=== PATIENT | male | born 1930 | race Caucasian/White ===

== ENCOUNTER → 2017-02-27 | Outpatient (CLI) | payer MEDICARE, BC ==
[2017-02-27 13:38] LABS: Uric Acid 5.6 mg/dL (3.5-8.5)
== END | disposition home or self-care (01) ==
LOC: LABWHC1 12:32
PROVIDERS: ATTEND Internal Medicine Rheumatology
DX: M10.00 Idiopathic gout, unspecified site (principal)
CPT/HCPCS: 36415; 82565; 84450; 84460; 84520; 84550

== ENCOUNTER → 2017-03-30 | Outpatient (CLI) | payer MEDICARE, BC ==
[2017-03-30 17:41] LABS: Basophils # (A) 0.1 k/uL (0-0.2); Basophils % (A) 1 %; CH 27.9; CHCM 31.2; Eosinophils # (A) 0.4 k/uL (0-0.7); Eosinophils % (A) 4 %; HCT 39.5 % (39.0-53.0); HDW 2.53; HGB 11.9 gm/dL (13.0-17.5); Hypochromasia Slight; Luc # (Auto) 0.21; Luc % (Auto) 2; Lymphocytes # (A) 1.5 k/uL (1.0-4.8); Lymphocytes % (A) 16 %; MCH 27.2 pg (25.0-35.0); MCHC 30.2 g/dL (31.0-37.0); MCV 90.1 fL (80.0-100.0); Mean Platelet Volume 6.7; Monocytes # (A) 0.4 k/uL (0-1.0); Monocytes % (A) 5 %; Neutrophils # (A) 6.9 k/uL (1.3-7.7); Neutrophils % (A) 73 %; RBC 4.39 m/uL (4.30-5.90); RDW 15.3 % (11.5-15.5); WBC 9.5 k/uL (3.8-10.6); WBC (Perox) 9.31
[2017-03-30 20:44] LABS: Erythrocyte Sedimentation Rate 40 mm/hr (0-15)
== END ==
LOC: LABWHC1 16:50
PROVIDERS: ATTEND Internal Medicine Rheumatology
DX: M06.4 Inflammatory polyarthropathy (principal)
CPT/HCPCS: 36415; 82565; 84450; 84460; 84520; 85025; 85652

== ENCOUNTER 2018-02-20 22:30 | Inpatient (IN) | payer MEDICARE, BC ==
--- NOTE | 2018-02-20 22:40 | ED ---
General Adult HPI - General Stated complaint: Chest Pain Time Seen by Provider: 02/20/18 22:33 Source: RN notes reviewed, old records reviewed - History of Present Illness Initial comments: This is an 87-year-old male to the ER for evaluation. Positive chest pain. History of high blood pressure. Nonsmoker. No significant medical history. No recent travel history no sick contacts. Patient denies any specific injuries. Patient has anterior chest pain really feels like tightness started about an hour prior to arrival. No prior history of similar complaint. No bowel pain no nausea vomiting. No diaphoresis. No significant shortness of breath currently. Patient states pain is mildly improved when it started was worse an hour ago much improved now - Related Data Allergies Allergy/AdvReac Type Severity Reaction Status Date / Time No Known Allergies Allergy Verified 02/20/18 22:33 Review of Systems ROS Statement: Those systems with pertinent positive or pertinent negative responses have been documented in the HPI. ROS Other: All systems not noted in ROS Statement are negative. General Exam General appearance: alert, in no apparent distress Head exam: Present: atraumatic, normocephalic, normal inspection Eye exam: Present: normal appearance, PERRL, EOMI. Absent: scleral icterus, conjunctival injection, periorbital swelling ENT exam: Present: normal exam, mucous membranes moist Neck exam: Present: normal inspection. Absent: tenderness, meningismus, lymphadenopathy Respiratory exam: Present: normal lung sounds bilaterally. Absent: respiratory distress, wheezes, rales, rhonchi, stridor Cardiovascular Exam: Present: regular rate, normal rhythm, normal heart sounds. Absent: systolic murmur, diastolic murmur, rubs, gallop, clicks GI/Abdominal exam: Present: soft, normal bowel sounds. Absent: distended, tenderness, guarding, rebound, rigid Extremities exam: Present: normal inspection, full ROM, normal capillary refill. Absent: tenderness, pedal edema, joint swelling, calf tenderness Back exam: Present: normal inspection Neurological exam: Present: alert, oriented X3, CN II-XII intact Psychiatric exam: Present: normal affect, normal mood Skin exam: Present: warm, dry, intact, normal color. Absent: rash Course Vital Signs 02/20/18 02/20/18 02/20/18 22:33 22:46 23:01 Temperature 98.5 F Pulse Rate 87 79 Pulse Rate [ 78 [employer] ] Respiratory 18 18 Rate Blood Pressure 175/99 142/82 O2 Sat by Pulse 96 98 Oximetry 02/21/18 00:08 Temperature 97.0 F L Pulse Rate 80 Pulse Rate [ [employer] ] Respiratory 18 Rate Blood Pressure 151/84 O2 Sat by Pulse 98 Oximetry EKG Findings - EKG Comments: EKG Findings:: EKG shows sinus rhythm rate of 84, MI 1:30, QRS 88, QTC 404 Medical Decision Making - Medical Decision Making 87 male the ER for evaluation positive chest pain. Patient does have positive troponin 0.2 with positive chest pain. Patient be taken to [facility], given aspirin and heparin - Lab Data Result diagrams: 02/20/18 22:36 02/20/18 22:36 Lab Results 02/20/18 02/20/18 02/20/18 Range/Units 22:35 22:36 22:36 WBC 10.1 (3.8-10.6) k/uL RBC 4.54 (4.30-5.90) m/uL Hgb 12.5 L (13.0-17.5) gm/dL Hct 39.2 (39.0-53.0) % MCV 86.3 (80.0-100.0) fL MCH 27.5 (25.0-35.0) pg MCHC 31.8 (31.0-37.0) g/dL RDW 14.4 (11.5-15.5) % Plt Count 255 (150-450) k/uL Neutrophils % 74 % Lymphocytes % 15 % Monocytes % 6 % Eosinophils % 3 % Basophils % 1 % Neutrophils # 7.5 (1.3-7.7) k/uL Lymphocytes # 1.5 (1.0-4.8) k/uL Monocytes # 0.6 (0-1.0) k/uL Eosinophils # 0.3 (0-0.7) k/uL Basophils # 0.1 (0-0.2) k/uL PT (9.0-12.0) sec INR (<1.2) APTT (22.0-30.0) sec D-Dimer (<0.60) mg/L FEU Sodium (137-145) mmol/L Potassium (3.5-5.1) mmol/L Chloride (98-107) mmol/L Carbon Dioxide (22-30) mmol/L Anion Gap mmol/L BUN (9-20) mg/dL Creatinine (0.66-1.25) mg/dL Est GFR (CKD-EPI)AfAm (>60 ml/min/1.73 sqM) Est GFR (CKD-EPI)NonAf (>60 ml/min/1.73 sqM) Glucose (74-99) mg/dL POC Glucose (mg/dL) 124 H (75-99) mg/dL POC Glu Continuing Education Director ID Rebekah Brar Calcium (8.4-10.2) mg/dL Magnesium (1.6-2.3) mg/dL Total Bilirubin (0.2-1.3) mg/dL AST (17-59) U/L ALT (21-72) U/L Alkaline Phosphatase (38-126) U/L Total Creatine Kinase 142 (55-170) U/L CK-MB (CK-2) 4.0 H* (0.0-2.4) ng/mL CK-MB (CK-2) Rel Index 2.8 Troponin I 0.222 H* (0.000-0.034) ng/mL Total Protein (6.3-8.2) g/dL Albumin (3.5-5.0) g/dL Lipase (23-300) U/L 02/20/18 02/20/18 Range/Units 22:36 22:36 WBC (3.8-10.6) k/uL RBC (4.30-5.90) m/uL Hgb (13.0-17.5) gm/dL Hct (39.0-53.0) % MCV (80.0-100.0) fL MCH (25.0-35.0) pg MCHC (31.0-37.0) g/dL RDW (11.5-15.5) % Plt Count (150-450) k/uL Neutrophils % % Lymphocytes % % Monocytes % % Eosinophils % % Basophils % % Neutrophils # (1.3-7.7) k/uL Lymphocytes # (1.0-4.8) k/uL Monocytes # (0-1.0) k/uL Eosinophils # (0-0.7) k/uL Basophils # (0-0.2) k/uL PT 9.9 (9.0-12.0) sec INR 1.0 (<1.2) APTT 21.8 L (22.0-30.0) sec D-Dimer 2.30 H (<0.60) mg/L FEU Sodium 143 (137-145) mmol/L Potassium 4.5 (3.5-5.1) mmol/L Chloride 106 (98-107) mmol/L Carbon Dioxide 24 (22-30) mmol/L Anion Gap 13 mmol/L BUN 31 H (9-20) mg/dL Creatinine 1.80 H (0.66-1.25) mg/dL Est GFR (CKD-EPI)AfAm 39 (>60 ml/min/1.73 sqM) Est GFR (CKD-EPI)NonAf 34 (>60 ml/min/1.73 sqM) Glucose 134 H (74-99) mg/dL POC Glucose (mg/dL) (75-99) mg/dL POC Glu Continuing Education Director ID Calcium 9.4 (8.4-10.2) mg/dL Magnesium 1.6 (1.6-2.3) mg/dL Total Bilirubin 0.3 (0.2-1.3) mg/dL AST 19 (17-59) U/L ALT 27 (21-72) U/L Alkaline Phosphatase 71 (38-126) U/L Total Creatine Kinase (55-170) U/L CK-MB (CK-2) (0.0-2.4) ng/mL CK-MB (CK-2) Rel Index Troponin I (0.000-0.034) ng/mL Total Protein 6.9 (6.3-8.2) g/dL Albumin 4.1 (3.5-5.0) g/dL Lipase 243 (23-300) U/L - Radiology Data Radiology results: report reviewed (Chest x-rays negative for acute disease), image reviewed Critical Care Time Critical Care Time: Yes Total Critical Care Time: 31 Disposition Clinical Impression: Chest pain, Atypical chest pain, Unstable angina pectoris Disposition: ADMITTED IP TO THIS [facility] Referrals: Alok Ospina MD [Primary Care Provider] - 1-2 days
[2018-02-20 22:48] LABS: Glucose,Whole Blood 124 mg/dL (75-99)
[2018-02-20] MEDS ORDERED: SODIUM CHLORIDE 0.9% 1,000 ML IV STA (22:50)
[2018-02-20] MEDS ORDERED: SODIUM CHLORIDE 0.9% 500 ML IV STA (22:50)
[2018-02-20 23:00] LABS: Basophils # (A) 0.1 k/uL (0-0.2); Basophils % (A) 1 %; Eosinophils # (A) 0.3 k/uL (0-0.7); Eosinophils % (A) 3 %; HCT 39.2 % (39.0-53.0); HGB 12.5 gm/dL (13.0-17.5); Lymphocytes # (A) 1.5 k/uL (1.0-4.8); Lymphocytes % (A) 15 %; MCH 27.5 pg (25.0-35.0); MCHC 31.8 g/dL (31.0-37.0); MCV 86.3 fL (80.0-100.0); Mean Platelet Volume 6.5; Monocytes # (A) 0.6 k/uL (0-1.0); Monocytes % (A) 6 %; Neutrophils # (A) 7.5 k/uL (1.3-7.7); Neutrophils % (A) 74 %; Platelet Count 255 k/uL (150-450); RBC 4.54 m/uL (4.30-5.90); RDW 14.4 % (11.5-15.5); WBC 10.1 k/uL (3.8-10.6)
[2018-02-20 23:11] LABS: Albumin 4.1 g/dL (3.5-5.0); Calcium 9.4 mg/dL (8.4-10.2); Magnesium 1.6 mg/dL (1.6-2.3); Potassium 4.5 mmol/L (3.5-5.1); Total Bilirubin 0.3 mg/dL (0.2-1.3); Total Protein 6.9 g/dL (6.3-8.2)
[2018-02-20 23:20] LABS: Partial Thromboplastin Time 21.8 sec (22.0-30.0); Prothrombin Time 9.9 sec (9.0-12.0)
[2018-02-20 23:23] LABS: D-Dimer 2.3 mg/L FEU (<0.60)
--- NOTE | 2018-02-20 23:28 | XR ---
EXAMINATION TYPE: XR chest 2V DATE OF EXAM: 02/20/2018 COMPARISON: 01/07/2018 HISTORY: Chest pain TECHNIQUE: Frontal and lateral views of the chest are obtained. FINDINGS: There is no heart failure nor confluent pneumonic infiltrate. There is minimal blunting of left costophrenic angle.. Thoracic aorta is atheromatous. There are chest leads. IMPRESSION: Minimal pleural reaction at the left lung base. Otherwise negative exam. There is probab ly no change compared to old exam.
[2018-02-20 23:44] LABS: Troponin I 0.222 ng/mL (0.000-0.034)
[2018-02-20] MEDS ORDERED: HEPARIN SODIUM,PORCINE 5,000 UNIT/ML 1 ML VIAL IV PRN (23:45)
[2018-02-20] MEDS ORDERED: HEPARIN SODIUM,PORCINE 5,000 UNIT/ML 1 ML VIAL IV ONE (23:45)
[2018-02-21] MEDS: HEPARIN SOD,PORK IN 0.45% NACL 25,000 UNIT in 0.45% NACL 1 500ML.BAG IV SCH (00:02)
[2018-02-21] MEDS ORDERED: ASPIRIN 81 MG PO STA (00:14)
[2018-02-21] MEDS ORDERED: NITROGLYCERIN SL TABS 0.4 MG TAB SUBLINGUAL PRN ×2 (00:14→01:59)
[2018-02-21] MEDS ORDERED: SODIUM CHLORIDE 0.9% 1,000 ML IV ONE (00:44)
[2018-02-21] MEDS ORDERED: MIDAZOLAM 2 MG/2 ML VIAL ONE (00:45)
[2018-02-21] MEDS ORDERED: MIDAZOLAM 2 MG/2 ML VIAL IVP ONE (01:03)
[2018-02-21] MEDS ORDERED: LIDOCAINE 2% SYG (PF) 100 MG/5 ML MISCELLANE ONE (01:07)
[2018-02-21] MEDS ORDERED: BIVALIRUDIN BOLUS 250 MG/50 ML IV ONE (01:26)
[2018-02-21] MEDS ORDERED: IOPAMIDOL-370 125ML BTL INJ ONE (01:26)
[2018-02-21] MEDS ORDERED: BIVALIRUDIN 250 MG in SODIUM CHLORIDE 0.9% 50 ML IV ONE (01:27)
[2018-02-21] MEDS: NITROGLYCERIN 1000MCG/10ML SYRINGE INTRACORON ONE ×2 (01:37→01:46)
[2018-02-21] MEDS ORDERED: CLOPIDOGREL 75 MG TAB ONE (01:49)
[2018-02-21] MEDS ORDERED: CLOPIDOGREL 75 MG TAB PO ONE (01:50)
[2018-02-21] MEDS ORDERED: RX INFO: IV CONTRAST WAS GIVEN 1 EACH MISC MISCELLANE PRN (01:59)
[2018-02-21] MEDS ORDERED: ATROPINE SULFATE 0.1 MG/ML 10ML SYRINGE IV PRN (01:59)
[2018-02-21] MEDS ORDERED: MAG HYDROX/AL HYDROX/SIMETH 30 ML CUP PO PRN (01:59)
[2018-02-21] MEDS ORDERED: ZOLPIDEM 5 MG TAB PO PRN (01:59)
[2018-02-21] MEDS ORDERED: SODIUM CHLORIDE 0.9% 1,000 ML IV SCH (02:00)
[2018-02-21] MEDS ORDERED: IOPAMIDOL-370 100ML BTL INJ ONE (02:03)
--- NOTE | 2018-02-21 02:05 | P.CRDCN ---
History of Present Illness Consult date: 02/21/18 Chief complaint: chest discomfort History of present illness: This is a pleasant 87-year-old gentleman with no significant past medical history presented to the emergency room complaining of chest discomfort. The patient described the discomfort as a dull kind of discomfort in the mid of the chest without any radiation and without any associated symptoms. The first set of troponin came in to be slightly abnormal as well as the CK-MB. The EKG showed sinus rhythm with ischemic ST and T wave abnormalities in the inferolateral leads. The patient continues to have chest discomfort throughout the ER stay. Because of that a heart catheterization was recommended. The patient underwent a heart catheterization and that revealed calcified right and left coronary systems with intermediate disease involving the mid RCA, critical disease involving the proximal first obtuse marginal branch of the left circumflex, and severe disease involving the mid LAD. The patient did undergo successful stenting of the left circumflex with a good angiographic results and without any complication with reduction of stenosis from 90% to 0%. I did deploy drug-eluting stent which was 2.5 x 23 mm Xience. The procedure was completed without any complication. By the end of the procedure the patient was pain-free. The patient does not have any documented historyOf diabetes or hypertension or dyslipidemia. The patient is going to be admitted to the selective units. He will be on dual antiplatelet therapy along with high intensity statin as well as beta luigi. An echocardiogram would be performed as well to evaluate the left ventricular systolic function and for any wall motion abnormalities. Past Medical History Past Medical History: Cancer, COPD, Hypertension Additional Past Medical History / Comment(s): Bladder cancer History of Any Multi-Drug Resistant Organisms: None Reported Past Surgical History: Hernia Repair Additional Past Surgical History / Comment(s): bladder removal, urostomy Past Psychological History: No Psychological Hx Reported Smoking Status: Never smoker Past Alcohol Use History: None Reported Past Drug Use History: None Reported Medications and Allergies Allergies Allergy/AdvReac Type Severity Reaction Status Date / Time No Known Allergies Allergy Verified 02/20/18 22:33 Physical Exam Vitals: Vital Signs Temp Pulse Pulse Resp BP Pulse Ox 02/21/18 00:08 97.0 F L 80 18 151/84 98 02/20/18 23:01 79 18 142/82 98 02/20/18 22:46 78 02/20/18 22:33 98.5 F 87 18 175/99 96 Intake and Output 02/20/18 02/20/18 02/21/18 14:59 22:59 06:59 Output Total 350 Balance -350 Output: Urine 350 Other: Weight 77.111 kg - Constitutional General appearance: no acute distress - Respiratory Respiratory: bilateral: CTA - Cardiovascular Rhythm: regular Heart sounds: normal: S1, S2 Results 02/20/18 22:36 02/20/18 22:36 Cardiac Enzymes 02/20/18 02/20/18 Range/Units 22:36 22:36 AST 19 (17-59) U/L CK-MB (CK-2) 4.0 H* (0.0-2.4) ng/mL Troponin I 0.222 H* (0.000-0.034) ng/mL Coagulation 02/20/18 Range/Units 22:36 PT 9.9 (9.0-12.0) sec APTT 21.8 L (22.0-30.0) sec CBC 02/20/18 Range/Units 22:36 WBC 10.1 (3.8-10.6) k/uL RBC 4.54 (4.30-5.90) m/uL Hgb 12.5 L (13.0-17.5) gm/dL Hct 39.2 (39.0-53.0) % Plt Count 255 (150-450) k/uL Comprehensive Metabolic Panel 02/20/18 Range/Units 22:36 Sodium 143 (137-145) mmol/L Potassium 4.5 (3.5-5.1) mmol/L Chloride 106 (98-107) mmol/L Carbon Dioxide 24 (22-30) mmol/L BUN 31 H (9-20) mg/dL Creatinine 1.80 H (0.66-1.25) mg/dL Glucose 134 H (74-99) mg/dL Calcium 9.4 (8.4-10.2) mg/dL AST 19 (17-59) U/L ALT 27 (21-72) U/L Alkaline Phosphatase 71 (38-126) U/L Total Protein 6.9 (6.3-8.2) g/dL Albumin 4.1 (3.5-5.0) g/dL Current Medications Generic Name Dose Route Start Last Admin Trade Name Freq PRN Reason Stop Dose Admin Al Hydroxide/Mg Hydroxide 30 ml 02/21/18 01:59 Maalox PO Q4HR PRN Heartburn Aspirin 325 mg 02/22/18 09:00 Aspirin PO DAILY [facility] Atorvastatin Calcium 80 mg 02/21/18 09:00 Lipitor PO DAILY [facility] Atropine Sulfate 0.5 mg 02/21/18 01:59 Atropine IV ONCE PRN Symptomatic Bradycardia Clopidogrel Bisulfate 75 mg 02/22/18 02:00 Plavix PO DAILY [facility] Heparin Sodium (Porcine) 0 unit 02/20/18 23:45 Heparin IV PER PROTOCOL PRN Low PTT Protocol Sodium Chloride 1,000 mls @ 100 mls/hr 02/20/18 22:50 02/20/18 22:59 Saline 0.9% IV 02/21/18 08:49 100 mls/hr .Q10H STA Administration Heparin Sodium/Sodium Chloride 500 mls @ 18.5 mls/hr 02/20/18 23:45 02/21/18 00:02 25,000 unit/ Sodium Chloride IV 12 units/kg/hr .Q24H JULIETH 18.5 mls/hr Administration Protocol 12 UNITS/KG/HR Metoprolol Tartrate 25 mg 02/21/18 09:00 Lopressor PO BID [facility] Nitroglycerin 0.4 mg 02/21/18 00:14 Nitrostat SUBLINGUAL Q5M PRN Chest Pain Nitroglycerin 0.4 mg 02/21/18 01:59 Nitrostat SUBLINGUAL Q5M PRN Chest Pain Intake and Output 02/20/18 02/20/18 02/21/18 14:59 22:59 06:59 Output Total 350 Balance -350 Output: Urine 350 Other: Weight 77.111 kg Patient Weight 02/21/18 06:59 Weight 77.111 kg 02/20/18 22:36 02/20/18 22:36 Assessment and Plan Assessment: assessment #1 acute non-ST patient myocardial infarction Plan #1 the patient underwent successful stenting of the left circumflex #2 he needs to have a PCI of the LAD #3 dual antiplatelet therapy along with high intensity statin #4 an echocardiogram was Doppler #5 follow-up with the patient.
[2018-02-21] MEDS: MORPHINE SULFATE 2 MG/ML SYRINGE IVP PRN ×2 (04:23→08:49)
--- NOTE | 2018-02-21 05:07 | CC ---
CARDIAC CATHETERIZATION REPORT DATE OF SERVICE: February 21, 2018 PERFORMING PHYSICIAN: Charly Riley MD, log handling equipment operator. PROCEDURE PERFORMED: 1. Selective right and left coronary angiogram. 2. Successful stenting of the proximal 1st obtuse marginal branch of the left circumflex using 2.5 x 23 mm Xience VERONICA with good angiographic results. INDICATION: This is a pleasant 87-year-old gentleman who presented to the hospital with chest discomfort and EKG changes concerning for ischemia as well as abnormal cardiac enzymes consistent with acute myocardial infarction. Because of the continuous chest discomfort throughout the ER visit, we decided to pursue with a heart catheterization. APPROACH: Right common femoral artery. COMPLICATION: None. LEVEL OF SEDATION: Moderate with sedation length of 53 minutes. PROCEDURE DESCRIPTION: After obtaining an informed consent, the patient was brought to cardiac laboratory worker. The right common femoral artery was cannulated using micropuncture technique and a micropuncture wire passed easily. Then I placed a 6-Tanzanian sheath in the right common femoral artery. I did after that selective right and left coronary angiogram using JR4 and JL4.5 catheters. After that, I did intervene on the left circumflex. Please see a separate paragraph for that. SELECTIVE CORONARY ANGIOGRAM: 1. The RCA is a large caliber vessel and it is a dominant vessel. It does have the posterior takeoff. The proximal RCA appeared to be appeared to have mild disease only. The mid RCA has a lesion seems to be in the range of 30% to 40%. The RCA distally is normal and bifurcates into PDA and PLV branches both are angiographically normal. 2. The left main: Calcified and seems to have mild disease only. It bifurcates into left circumflex, ramus intermedius, and left anterior descending artery. 3. The left circumflex is a large caliber vessel. It is a nondominant vessel with proximal circ appeared to have a lesion in the range of 70%. It gives rise into the first obtuse marginal branch which worked as ramus intermedius and does have a lesion seems to be in the range of 80% to 90%. The mid and distal 1st OM branch appears to be angiographically normal and the circ continues as a medium caliber vessel in the AV groove. 4. The LAD: The proximal LAD appeared to have mild to moderate disease only. The mid LAD has a lesion appeared to be in the range of 70% to 80%. The LAD distally appeared to have mild disease only. The LAD overall is heavily calcified vessel. PCI OF THE LEFT CIRCUMFLEX: Anticoagulation was initiated using Angiomax. Subsequently I did take an XB4 guide and the left main was engaged. A whisper wire was used to wire the OM 1. I did after that balloon angioplasty using 2.5 x 15 mm balloon. I tried advancing 2.5 x 23 mm Xience VERONICA, but the stent will not make the turn from the left main to the circumflex. At that point, I did wire the OM 1 using a run-through wire. With the renato wire I was able to advance 2.5 x 23 mm Xience VERONICA to OM 1 in the proximal portion where the stent was positioned under fluoroscopy guidance and deployed under its nominal pressure. The following angiogram showed good angiographic results and the procedure was completed without any complication. CONCLUSION: 1. Calcified right and left coronary systems. 2. 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 3. Severe disease involving the mid LAD. 4. Successful stenting of the proximal OM 1 of the left circumflex using 2.5 x 23 mm Xience VERONICA with good angiographic results. POSTPROCEDURE MANAGEMENT: 1. Dual anti-platelet therapy. 2. Risk factor modifications. 3. Follow up with the patient. MMODL / IJN: [id number] /
[2018-02-21 05:56] LABS: Basophils % (A) 0 %; Eosinophils # (A) 0.1 k/uL (0-0.7); Eosinophils % (A) 2 %; HCT 35.6 % (39.0-53.0); HGB 11.2 gm/dL (13.0-17.5); Lymphocytes % (A) 14 %; MCHC 31.3 g/dL (31.0-37.0); MCV 86.2 fL (80.0-100.0); Mean Platelet Volume 6.5; Monocytes # (A) 0.5 k/uL (0-1.0); Monocytes % (A) 7 %; Neutrophils # (A) 5.5 k/uL (1.3-7.7); Neutrophils % (A) 76 %; Platelet Count 234 k/uL (150-450); RBC 4.14 m/uL (4.30-5.90); RDW 14.5 % (11.5-15.5); WBC 7.2 k/uL (3.8-10.6)
[2018-02-21 06:02] LABS: INR 1.2 (<1.2); Partial Thromboplastin Time 37.8 sec (22.0-30.0); Prothrombin Time 11.6 sec (9.0-12.0)
[2018-02-21 06:35] LABS: Creatine Kinase MB 16.1 ng/mL (0.0-2.4); Troponin I 4.94 ng/mL (0.000-0.034)
[2018-02-21] MEDS: METOPROLOL TARTRATE 25 MG TAB PO SCH ×2 (07:58→21:47)
[2018-02-21] MEDS ORDERED: ATORVASTATIN 80 MG TAB PO SCH (09:00)
--- NOTE | 2018-02-21 10:16 | P.PN ---
Subjective Progress Note Date: 02/21/18 Principal diagnosis: Acute coronary syndrome This is a pleasant 87-year-old gentleman with no significant past medical history who presented to the emergency room complaining of chest discomfort and EKG finding consistent with ischemic changes. In view of the persistent chest discomfort the patient did undergo a heart catheterization and was found to have critical disease involving the left circumflex which was a stented with a good angiographic results and also severe disease involving the mid LAD which is heavily calcified. On follow-up with the patient today, he denies having any chest pain or discomfort or shortness of breath. No dizziness or lightheadedness. The vital signs are within normal limits. He continues to be on dual antiplatelet therapy along with a statin. An echocardiogram was ordered and we will follow-up with that. Objective - Vital Signs Vital signs: Vital Signs Temp 97.0 F L 02/21/18 07:42 Pulse 64 02/21/18 08:42 Resp 20 02/21/18 08:42 BP 122/76 02/21/18 08:42 Pulse Ox 91 L 02/21/18 08:42 Intake & Output 02/20/18 02/21/18 02/21/18 18:59 06:59 18:59 Intake Total 111 20 Output Total 825 200 Balance -714 -180 Weight 82.5 kg Intake: IV 111 20 Invasive Line 2 20 Output: Urine 825 200 Other: Voiding Method Urinal - Constitutional General appearance: Present: no acute distress - Respiratory Respiratory: bilateral: CTA - Cardiovascular Rhythm: regular Heart sounds: normal: S1, S2 - Labs CBC & Chem 7: 02/21/18 05:19 02/20/18 22:36 Labs: Abnormal Lab Results - Last 24 Hours (Table) 02/20/18 02/20/18 02/20/18 Range/Units 22:35 22:36 22:36 RBC (4.30-5.90) m/uL Hgb 12.5 L (13.0-17.5) gm/dL Hct (39.0-53.0) % INR (<1.2) APTT (22.0-30.0) sec D-Dimer (<0.60) mg/L FEU BUN (9-20) mg/dL Creatinine (0.66-1.25) mg/dL Glucose (74-99) mg/dL POC Glucose (mg/dL) 124 H (75-99) mg/dL Total Creatine Kinase (55-170) U/L CK-MB (CK-2) 4.0 H* (0.0-2.4) ng/mL Troponin I 0.222 H* (0.000-0.034) ng/mL 02/20/18 02/20/18 02/21/18 Range/Units 22:36 22:36 05:19 RBC (4.30-5.90) m/uL Hgb (13.0-17.5) gm/dL Hct (39.0-53.0) % INR 1.2 H (<1.2) APTT 21.8 L 37.8 H (22.0-30.0) sec D-Dimer 2.30 H (<0.60) mg/L FEU BUN 31 H (9-20) mg/dL Creatinine 1.80 H (0.66-1.25) mg/dL Glucose 134 H (74-99) mg/dL POC Glucose (mg/dL) (75-99) mg/dL Total Creatine Kinase (55-170) U/L CK-MB (CK-2) (0.0-2.4) ng/mL Troponin I (0.000-0.034) ng/mL 02/21/18 02/21/18 Range/Units 05:19 05:19 RBC 4.14 L (4.30-5.90) m/uL Hgb 11.2 L (13.0-17.5) gm/dL Hct 35.6 L (39.0-53.0) % INR (<1.2) APTT (22.0-30.0) sec D-Dimer (<0.60) mg/L FEU BUN (9-20) mg/dL Creatinine (0.66-1.25) mg/dL Glucose (74-99) mg/dL POC Glucose (mg/dL) (75-99) mg/dL Total Creatine Kinase 249 H (55-170) U/L CK-MB (CK-2) 16.1 H* (0.0-2.4) ng/mL Troponin I 4.940 H* (0.000-0.034) ng/mL Assessment and Plan Assessment: assessment #1 acute non-ST patient myocardial infarction Plan #1 the patient underwent successful stenting of the left circumflex #2 he needs to have a PCI of the LAD #3 dual antiplatelet therapy along with high intensity statin #4 an echocardiogram was Doppler #5 follow-up with the patient.
[2018-02-21 11:32] LABS: Creatine Kinase MB 14.3 ng/mL (0.0-2.4); Troponin I 5.38 ng/mL (0.000-0.034)
[2018-02-21] MEDS ORDERED: IPRATROPIUM-ALBUTEROL 3 ML NEB INHALATION PRN (11:55)
[2018-02-21] MEDS: IPRATROPIUM-ALBUTEROL 3 ML NEB INHALATION SCH ×3 (12:15→20:11)
[2018-02-21] MEDS: HYDROCORTISONE 1% CREAM 30 GM TUBE TOPICAL SCH ×3 (12:48→21:47)
--- NOTE | 2018-02-21 15:20 | P.HPIM ---
History of Present Illness H&P Date: 02/21/18 Chief Complaint: Chest pain 87 years old gentleman with past medical history of bladder cancer status post urostomy, COPD, hypertension comes in yesterday with left-sided chest pain that started 9 PM at night radiating to the right upper arm associated with shortness of breath and nausea. Patient came to the ER with his son. Troponin on admission was 0.22EKG was obtained with ST or T wave changes in the inferior lateral leads. cardiology evaluated the patient and took the patient for heart cath early in the morning they're successful drug-eluting stent was placed in the proximal. To use marginal branch of left circumflex. Severe disease was also seen in the mid LAD and intermediate disease in the mid RCA. LAD will be stented LAD later. Patient was initiated on Plavix and aspirin along with Lipitor and beta luigi. Creatinine on admission 1.8 which is close to patient 's baseline. Repeat labs not available. Patient examined bedside post cardiac catheterization. He denies any chest pain or shortness of breath. He is currently asymptomatic. Denies any nausea or vomiting episode. Denies any constipation or diarrhea, bloody stools or hematemesis. Patient is admitted for further intervention by cardiology of the [facility] Review of Systems Constitutional: Denies chills, Denies fever, Denies lethargy, Denies malaise, Denies poor appetite, Denies weakness, Denies weight loss Eyes: denies decreased vision, denies diplopia, denies discharge, denies pain Ears: deny: decreased hearing Ears, nose, mouth and throat: Denies dental pain, Denies headache, Denies nasal discharge, Denies nose pain Cardiovascular: Denies chest pain, Denies decreased exercise tolerance, Denies edema, Denies high blood pressure, Denies irregular heart beat, Denies palpitations, Denies paroxysmal nocturnal dyspnea, Denies rapid heart beat, Denies shortness of breath Respiratory: Denies congestion, Denies cough, Denies cough with sputum, Denies dyspnea, Denies home oxygen, Denies wheezing Gastrointestinal: Denies abdominal pain, Denies change in bowel habits, Denies coffee ground emesis, Denies early satiety, Denies excessive gas, Denies heartburn, Denies hematemesis, Denies hematochezia, Denies loss of appetite, Denies nausea, Denies vomiting Genitourinary: Denies dysuria, Denies flank pain, Denies kidney stones, Denies menorrhagia, Denies urgency, Denies urinary frequency Musculoskeletal: Denies gait dysfunction, Denies limitation of motion, Denies morning stiffness, Denies muscle cramps Integumentary: Denies rash, Denies wounds, Denies brittle nails, Denies change in hair/nails, Denies darkening of skin Neurological: Denies balance difficulties, Denies change in speech, Denies double vision, Denies gait dysfunction, Denies loss of vision, Denies motor disturbance, Denies numbness, Denies paralysis, Denies paresthesias, Denies seizures Psychiatric: Denies anxiety, Denies depression Endocrine: Denies excessive sweating, Denies excessive thirst, Denies high blood sugars, Denies palpitations Hematologic/Lymphatic: Denies easy bruising, Denies lymphadenopathy Past Medical History Past Medical History: Cancer, COPD, Hypertension Additional Past Medical History / Comment(s): Bladder cancer History of Any Multi-Drug Resistant Organisms: None Reported Past Surgical History: Appendectomy, Hernia Repair Additional Past Surgical History / Comment(s): bladder removal, urostomy, carotid endarterectomy bilaterally, cateract surgery Past Anesthesia/Blood Transfusion Reactions: No Reported Reaction Past Psychological History: No Psychological Hx Reported Smoking Status: Former smoker Past Alcohol Use History: None Reported Past Drug Use History: None Reported - Past Family History Father Family Medical History: Cancer Mother Family Medical History: CVA/TIA, Diabetes Mellitus Medications and Allergies Home Medications Medication Instructions Recorded Confirmed Type Aspirin 81 mg PO DAILY 02/21/18 02/21/18 History Cetirizine HCl [Zyrtec] 10 mg PO DAILY 02/21/18 02/21/18 History Fluticasone/Salmeterol [Advair 1 puff INHALATION RT-BID 02/21/18 02/21/18 History 500-50 Diskus] Ipratropium/Albuterol Sulfate 1 puff INHALATION RT-QID 02/21/18 02/21/18 History [Combivent Respimat Inhaler] Levothyroxine Sodium 25 mcg PO DAILY 02/21/18 02/21/18 History Losartan Potassium 100 mg PO DAILY 02/21/18 02/21/18 History Pravastatin Sodium [Pravachol] 40 mg PO DAILY 02/21/18 02/21/18 History predniSONE 5 mg PO DAILY 02/21/18 02/21/18 History Allergies Allergy/AdvReac Type Severity Reaction Status Date / Time No Known Allergies Allergy Verified 02/21/18 11:28 Physical Exam Vitals: Vital Signs Temp Pulse Pulse Pulse Pulse Resp BP 02/21/18 14:57 66 02/21/18 11:09 97.3 F L 66 22 02/21/18 08:42 64 20 02/21/18 08:14 02/21/18 07:42 97.0 F L 72 24 02/21/18 06:42 74 18 02/21/18 06:12 74 18 02/21/18 05:42 72 18 02/21/18 05:27 75 18 02/21/18 05:12 78 18 02/21/18 04:57 18 02/21/18 04:52 78 18 02/21/18 04:47 78 18 02/21/18 04:42 80 18 02/21/18 04:35 82 18 02/21/18 04:05 80 18 02/21/18 03:35 85 18 02/21/18 03:05 82 18 02/21/18 03:03 98.2 F 90 18 02/21/18 02:50 84 18 02/21/18 02:35 90 18 02/21/18 02:20 98.2 F 90 18 02/21/18 00:08 97.0 F L 80 18 151/84 02/20/18 23:01 79 18 142/82 02/20/18 22:46 78 02/20/18 22:33 98.5 F 87 18 175/99 BP Pulse Ox 02/21/18 14:57 02/21/18 11:09 116/77 94 L 02/21/18 08:42 122/76 91 L 02/21/18 08:14 92 L 02/21/18 07:42 130/80 91 L 02/21/18 06:42 123/75 94 L 02/21/18 06:12 129/76 93 L 02/21/18 05:42 130/78 93 L 02/21/18 05:27 134/78 93 L 02/21/18 05:12 149/72 92 L 02/21/18 04:57 140/84 94 L 02/21/18 04:52 134/78 93 L 02/21/18 04:47 128/78 93 L 02/21/18 04:42 128/75 93 L 02/21/18 04:35 129/77 94 L 02/21/18 04:05 124/70 96 02/21/18 03:35 125/68 94 L 02/21/18 03:05 134/82 93 L 02/21/18 03:03 124/75 02/21/18 02:50 137/81 93 L 02/21/18 02:35 150/83 95 02/21/18 02:20 124/75 96 02/21/18 00:08 98 02/20/18 23:01 98 02/20/18 22:46 02/20/18 22:33 96 Intake and Output 02/21/18 02/21/18 02/21/18 06:59 14:59 22:59 Intake Total 111 30 Output Total 825 200 Balance -714 -170 Intake: IV 111 30 Invasive Line 2 30 Output: Urine 825 200 Other: Voiding Method Urinal Weight 82.5 kg - Constitutional General appearance: cooperative, no acute distress, obese - EENT Eyes: anicteric sclerae, PERRLA, normal appearance ENT: hearing grossly normal - Neck Neck: no lymphadenopathy, normal ROM, no other, no rigidity, no stridor, no thyromegaly - Respiratory Respiratory: bilateral: Wheezing with decreased air entry negative: diminished, dullness, rales, rhonchi - Cardiovascular Rhythm: regular Heart sounds: normal: S1, S2 Abnormal Heart Sounds: no systolic murmur, no diastolic murmur, no rub, no S3 Gallop, no S4 Gallop, no click, no other - Gastrointestinal General gastrointestinal: normal bowel sounds, soft, urostomy bag in the right lower quadrant draining clear urine. - Integumentary Integumentary: no rash - Neurologic Neurologic: CNII-XII intact - Musculoskeletal Musculoskeletal: gait normal, strength equal bilaterally - Psychiatric Psychiatric: A&O x's 3, appropriate affect Results CBC & Chem 7: 02/21/18 05:19 02/20/18 22:36 Labs: Abnormal Lab Results - Last 24 Hours (Table) 02/20/18 02/20/18 02/20/18 Range/Units 22:35 22:36 22:36 RBC (4.30-5.90) m/uL Hgb 12.5 L (13.0-17.5) gm/dL Hct (39.0-53.0) % INR (<1.2) APTT (22.0-30.0) sec D-Dimer (<0.60) mg/L FEU BUN (9-20) mg/dL Creatinine (0.66-1.25) mg/dL Glucose (74-99) mg/dL POC Glucose (mg/dL) 124 H (75-99) mg/dL Total Creatine Kinase (55-170) U/L CK-MB (CK-2) 4.0 H* (0.0-2.4) ng/mL Troponin I 0.222 H* (0.000-0.034) ng/mL 02/20/18 02/20/18 02/21/18 Range/Units 22:36 22:36 05:19 RBC (4.30-5.90) m/uL Hgb (13.0-17.5) gm/dL Hct (39.0-53.0) % INR 1.2 H (<1.2) APTT 21.8 L 37.8 H (22.0-30.0) sec D-Dimer 2.30 H (<0.60) mg/L FEU BUN 31 H (9-20) mg/dL Creatinine 1.80 H (0.66-1.25) mg/dL Glucose 134 H (74-99) mg/dL POC Glucose (mg/dL) (75-99) mg/dL Total Creatine Kinase (55-170) U/L CK-MB (CK-2) (0.0-2.4) ng/mL Troponin I (0.000-0.034) ng/mL 02/21/18 02/21/18 02/21/18 Range/Units 05:19 05:19 10:38 RBC 4.14 L (4.30-5.90) m/uL Hgb 11.2 L (13.0-17.5) gm/dL Hct 35.6 L (39.0-53.0) % INR (<1.2) APTT (22.0-30.0) sec D-Dimer (<0.60) mg/L FEU BUN (9-20) mg/dL Creatinine (0.66-1.25) mg/dL Glucose (74-99) mg/dL POC Glucose (mg/dL) (75-99) mg/dL Total Creatine Kinase 249 H 240 H (55-170) U/L CK-MB (CK-2) 16.1 H* 14.3 H* (0.0-2.4) ng/mL Troponin I 4.940 H* 5.380 H* (0.000-0.034) ng/mL Thrombosis Risk Factor Assmnt - DVT/VTE Prophylaxis DVT/VTE Prophylaxis: Pharmacologic Prophylaxis ordered, Mechanical Prophylaxis ordered - Choose All That Apply Each Factor Represents 1 point: Abnormal pulmonary function (COPD), Acute UT Each Risk Factor Represents 3 Points: Age 75 years or older Thrombosis Risk Factor Assessment Total Risk Factor Score: 5 Thrombosis Risk Factor Assessment Level: High Risk Assessment and Plan Plan: #1 acute chest pain secondary to acute coronary syndrome. Left circumflex stented on 02/21. Critical disease present in the mid LAD to be stented later. Continue aspirin, Plavix, heparin drip, metoprolol 25 twice a day. Continue Lipitor 40 mg daily. Echocardiogram pending. #2 COPD exacerbation. We will hold on prednisone as patient is on multiple factor nurse. Wheezing on examination present will continue with the pharmacist twice a day and Pulmicort twice a day along with DuoNeb's 4 shortness of breath. #3 contact dermatitis on high was stopped continue hydrocortisone 1% cream 3 times a day. #4 hypertension continue metoprolol. Losartan 50 mg by mouth daily #5 chronic kidney disease with creatinine baseline at 1.8. Since patient has returned exposure to contrast watch for kidney disease. CMP daily #6 history of bladder cancer status post urostomy #7 DVT prophylaxis on heparin drip #8 GI prophylaxis with Pepcid 20 mg twice a day #9 hypothyroidism on levothyroxine CODE STATUS full code
[2018-02-21] MEDS: ATORVASTATIN 40 MG TAB PO SCH (15:30)
[2018-02-21] MEDS: BUDESONIDE 0.5 MG/2 ML NEBU INHALATION SCH (20:12)
[2018-02-21] MEDS: FORMOTEROL FUMARATE 20 MCG/2 ML NEBU INHALATION SCH (20:12)
[2018-02-21] MEDS: CLOPIDOGREL 75 MG TAB PO SCH (21:48)
[2018-02-21] MEDS: FAMOTIDINE 20 MG TAB PO SCH (21:49)
[2018-02-22] MEDS: HEPARIN SOD,PORK IN 0.45% NACL 25,000 UNIT in 0.45% NACL 1 500ML.BAG IV SCH ×2 (01:13→21:23)
[2018-02-22] MEDS: LEVOTHYROXINE 25 MCG TAB PO SCH (05:59)
[2018-02-22 06:35] LABS: Basophils % (A) 0 %; Eosinophils # (A) 0.2 k/uL (0-0.7); Eosinophils % (A) 2 %; HCT 36.7 % (39.0-53.0); HGB 11.5 gm/dL (13.0-17.5); Hypochromasia Slight; Lymphocytes # (A) 1.1 k/uL (1.0-4.8); Lymphocytes % (A) 12 %; MCH 27.4 pg (25.0-35.0); MCHC 31.2 g/dL (31.0-37.0); MCV 87.6 fL (80.0-100.0); Monocytes # (A) 0.6 k/uL (0-1.0); Monocytes % (A) 7 %; Neutrophils % (A) 75 %; Platelet Count 240 k/uL (150-450); RBC 4.18 m/uL (4.30-5.90); RDW 14.2 % (11.5-15.5); WBC 9.3 k/uL (3.8-10.6)
[2018-02-22 06:45] LABS: Albumin 3.1 g/dL (3.5-5.0); Calcium 8.3 mg/dL (8.4-10.2); INR 1.1 (<1.2); Potassium 4.6 mmol/L (3.5-5.1); Prothrombin Time 10.7 sec (9.0-12.0); Total Bilirubin 0.4 mg/dL (0.2-1.3); Total Protein 5.7 g/dL (6.3-8.2)
[2018-02-22] MEDS: BUDESONIDE 0.5 MG/2 ML NEBU INHALATION SCH ×2 (08:32→19:05)
[2018-02-22] MEDS: FORMOTEROL FUMARATE 20 MCG/2 ML NEBU INHALATION SCH ×2 (08:32→19:15)
[2018-02-22] MEDS: IPRATROPIUM-ALBUTEROL 3 ML NEB INHALATION SCH ×4 (08:32→19:05)
[2018-02-22] MEDS ORDERED: PRAVASTATIN SODIUM 40 MG TAB PO SCH (09:00)
[2018-02-22] MEDS ORDERED: predniSONE 5 MG TAB PO SCH (09:00)
--- NOTE | 2018-02-22 09:46 | P.PN ---
Subjective Progress Note Date: 02/22/18 Principal diagnosis: Acute coronary syndrome This is a pleasant 87-year-old gentleman with no significant past medical history who presented to the emergency room complaining of chest discomfort and EKG finding consistent with ischemic changes. In view of the persistent chest discomfort the patient did undergo a heart catheterization and was found to have critical disease involving the left circumflex which was a stented with a good angiographic results and also severe disease involving the mid LAD which is heavily calcified. On follow-up with the patient today, he denies having any chest pain or discomfort or shortness of breath. No dizziness or lightheadedness. The vital signs are within normal limits. The echocardiogram which I reviewed the bedside showed severe cardiomyopathy with EF around 35% with anterior and apical hypokinesia. The patient does have severe disease involving the mid LAD. I am going to continue the current medical regimen. Add Aldactone to the current medical regimen. I will discuss with the family once they are around the next step which is treating him medically versus proceeding with a PCI of the LAD. Objective - Vital Signs Vital signs: Vital Signs Temp 98.4 F 02/22/18 03:45 Pulse 72 02/22/18 08:58 Resp 16 02/22/18 03:45 BP 109/66 02/22/18 03:45 Pulse Ox 94 L 02/22/18 03:45 Intake & Output 02/21/18 02/22/18 02/22/18 18:59 06:59 18:59 Intake Total 50 0 2240 Output Total 1350 825 Balance -1300 -825 2240 Weight 78 kg Intake: IV 50 Invasive Line 1 10 Invasive Line 2 40 Intake, IV Titration 0 Amount Sodium Chloride 0.9% 1, 0 000 ml @ 100 mls/hr IV . Q10H [facility] Rx#:[id number] Oral 2240 Output: Urine 1350 825 Other: Voiding Method Urinal - Constitutional General appearance: Present: no acute distress - Respiratory Respiratory: bilateral: CTA - Cardiovascular Rhythm: regular Heart sounds: normal: S1, S2 - Labs CBC & Chem 7: 02/22/18 06:15 02/22/18 06:15 Labs: Abnormal Lab Results - Last 24 Hours (Table) 02/21/18 02/22/18 02/22/18 Range/Units 10:38 06:15 06:15 RBC 4.18 L (4.30-5.90) m/uL Hgb 11.5 L (13.0-17.5) gm/dL Hct 36.7 L (39.0-53.0) % BUN 23 H (9-20) mg/dL Creatinine 1.73 H (0.66-1.25) mg/dL Glucose 150 H (74-99) mg/dL Calcium 8.3 L (8.4-10.2) mg/dL Total Creatine Kinase 240 H (55-170) U/L CK-MB (CK-2) 14.3 H* (0.0-2.4) ng/mL Troponin I 5.380 H* (0.000-0.034) ng/mL Total Protein 5.7 L (6.3-8.2) g/dL Albumin 3.1 L (3.5-5.0) g/dL Triglycerides 215 H (<150) mg/dL Assessment and Plan Assessment: assessment #1 acute non-ST patient myocardial infarction #2 severe cardiomyopathy with EF around 35% Plan #1 the patient underwent successful stenting of the left circumflex #2 he needs to have a PCI of the LAD or treat the LAD medically #3 dual antiplatelet therapy along with high intensity statin #4 add Aldactone to the current medical regimen #5 follow-up with the patient.
[2018-02-22] MEDS: CLOPIDOGREL 75 MG TAB PO SCH (09:55)
[2018-02-22] MEDS: LOSARTAN 50 MG TAB PO SCH (09:55)
[2018-02-22] MEDS: FAMOTIDINE 20 MG TAB PO SCH (09:55)
[2018-02-22] MEDS: LORATADINE 10 MG TAB PO SCH (09:55)
[2018-02-22] MEDS: ASPIRIN 325 MG TAB PO SCH (09:55)
[2018-02-22] MEDS: HYDROCORTISONE 1% CREAM 30 GM TUBE TOPICAL SCH ×3 (09:55→20:55)
[2018-02-22] MEDS: ATORVASTATIN 40 MG TAB PO SCH (09:55)
[2018-02-22] MEDS: METOPROLOL TARTRATE 25 MG TAB PO SCH ×2 (09:56→20:55)
[2018-02-22] MEDS ORDERED: NITROGLYCERIN SL TABS 0.4 MG TAB SUBLINGUAL PRN ×2 (12:11→13:14)
[2018-02-22] MEDS ORDERED: ASPIRIN 325 MG TAB PO STA (12:11)
[2018-02-22] MEDS ORDERED: SODIUM CHLORIDE 0.9% 1,000 ML in EMPTY BAG 1 BAG IV ONE (12:11)
[2018-02-22] MEDS ORDERED: ALPRAZolam 0.25 MG TAB PO PRN (12:11)
[2018-02-22] MEDS ORDERED: ATORVASTATIN 40 MG TAB PO STA (12:11)
[2018-02-22] MEDS ORDERED: ALPRAZolam 0.5 MG TAB PO PRN (12:11)
[2018-02-22] MEDS ORDERED: MIDAZOLAM 2 MG/2 ML VIAL IVP ONE (12:49)
[2018-02-22] MEDS ORDERED: IV FLUID CONTINUATION 1,000 ML IV ONE (12:50)
[2018-02-22] MEDS ORDERED: LIDOCAINE 1% INJ 10MG/ML (20 ML MDV) SQ ONE (12:52)
[2018-02-22] MEDS ORDERED: BIVALIRUDIN BOLUS 250 MG/50 ML IV ONE (12:54)
[2018-02-22] MEDS ORDERED: BIVALIRUDIN 250 MG in SODIUM CHLORIDE 0.9% 35 ML IV ONE (12:55)
[2018-02-22] MEDS ORDERED: NITROGLYCERIN 1000MCG/10ML SYRINGE INTRACORON ONE (13:08)
[2018-02-22] MEDS ORDERED: CLOPIDOGREL 75 MG TAB PO ONE (13:14)
[2018-02-22] MEDS ORDERED: IOPAMIDOL-370 125ML BTL INJ ONE (13:14)
[2018-02-22] MEDS ORDERED: ATROPINE SULFATE 0.1 MG/ML 10ML SYRINGE IV PRN (13:14)
[2018-02-22] MEDS ORDERED: RX INFO: IV CONTRAST WAS GIVEN 1 EACH MISC MISCELLANE PRN (13:14)
[2018-02-22] MEDS ORDERED: ZOLPIDEM 5 MG TAB PO PRN (13:14)
[2018-02-22] MEDS ORDERED: MAG HYDROX/AL HYDROX/SIMETH 30 ML CUP PO PRN (13:14)
[2018-02-22] MEDS ORDERED: SODIUM CHLORIDE 0.9% 1,000 ML IV SCH (13:15)
[2018-02-22 14:05] VITALS: BMI 23.3
--- NOTE | 2018-02-22 14:49 | P.PN ---
Subjective Progress Note Date: 02/22/18 87 years old gentleman with past medical history of bladder cancer status post urostomy, COPD, hypertension comes in yesterday with left-sided chest pain that started 9 PM at night radiating to the right upper arm associated with shortness of breath and nausea. Patient came to the ER with his son. Troponin on admission was 0.22EKG was obtained with ST or T wave changes in the inferior lateral leads. cardiology evaluated the patient and took the patient for heart cath early in the morning they're successful drug-eluting stent was placed in the proximal. To use marginal branch of left circumflex. Severe disease was also seen in the mid LAD and intermediate disease in the mid RCA. LAD will be stented LAD later. Patient was initiated on Plavix and aspirin along with Lipitor and beta luigi. Creatinine on admission 1.8 which is close to patient 's baseline. Repeat labs not available. Patient examined bedside post cardiac catheterization. He denies any chest pain or shortness of breath. He is currently asymptomatic. Denies any nausea or vomiting episode. Denies any constipation or diarrhea, bloody stools or hematemesis. Patient is admitted for further intervention by cardiology of the LAD 02/22: Cardiology has added in Aldactone. Objective - Vital Signs Vital signs: Vital Signs Temp 98.4 F 02/22/18 03:45 Pulse 72 02/22/18 08:58 Resp 16 02/22/18 03:45 BP 109/66 02/22/18 03:45 Pulse Ox 94 L 02/22/18 03:45 Intake & Output 02/21/18 02/22/18 02/22/18 18:59 06:59 18:59 Intake Total 50 0 2240 Output Total 1350 825 Balance -1300 -825 2240 Weight 78 kg Intake: IV 50 Invasive Line 1 10 Invasive Line 2 40 Intake, IV Titration 0 Amount Sodium Chloride 0.9% 1, 0 000 ml @ 100 mls/hr IV . Q10H [facility] Rx#:[id number] Oral 2240 Output: Urine 1350 825 Other: Voiding Method Urinal - Exam General appearance: cooperative, no acute distress, obese - EENT Eyes: anicteric sclerae, PERRLA, normal appearance ENT: hearing grossly normal - Neck Neck: no lymphadenopathy, normal ROM, no other, no rigidity, no stridor, no thyromegaly - Respiratory Respiratory: bilateral: Wheezing with decreased air entry negative: diminished, dullness, rales, rhonchi - Cardiovascular Rhythm: regular Heart sounds: normal: S1, S2 Abnormal Heart Sounds: no systolic murmur, no diastolic murmur, no rub, no S3 Gallop, no S4 Gallop, no click, no other - Gastrointestinal General gastrointestinal: normal bowel sounds, soft, urostomy bag in the right lower quadrant draining clear urine. - Integumentary Integumentary: no rash - Neurologic Neurologic: CNII-XII intact - Musculoskeletal Musculoskeletal: gait normal, strength equal bilaterally - Psychiatric Psychiatric: A&O x's 3, appropriate affect - Labs CBC & Chem 7: 02/22/18 06:15 02/22/18 06:15 Labs: Abnormal Lab Results - Last 24 Hours (Table) 02/21/18 02/22/18 02/22/18 Range/Units 10:38 06:15 06:15 RBC 4.18 L (4.30-5.90) m/uL Hgb 11.5 L (13.0-17.5) gm/dL Hct 36.7 L (39.0-53.0) % BUN 23 H (9-20) mg/dL Creatinine 1.73 H (0.66-1.25) mg/dL Glucose 150 H (74-99) mg/dL Calcium 8.3 L (8.4-10.2) mg/dL Total Creatine Kinase 240 H (55-170) U/L CK-MB (CK-2) 14.3 H* (0.0-2.4) ng/mL Troponin I 5.380 H* (0.000-0.034) ng/mL Total Protein 5.7 L (6.3-8.2) g/dL Albumin 3.1 L (3.5-5.0) g/dL Triglycerides 215 H (<150) mg/dL Assessment and Plan Plan: #1 acute non-ST elevated myocardial infarction. Left circumflex stented on 02/21. Critical disease present in the mid LAD to be stented later. Continue aspirin, Plavix, heparin drip, metoprolol 25 twice a day. Continue Lipitor 40 mg daily. Echocardiogram pending. Aldactone added. #2 COPD exacerbation. We will hold on prednisone. Continue DuoNeb treatments 4 times daily and as needed, Pulmicort 2.5 mg twice daily, Perforomist twice daily. #3 contact dermatitis, continue hydrocortisone 1% cream 3 times a day. #4 hypertension continue metoprolol. Losartan 50 mg by mouth daily #5 chronic kidney disease 3b. #6 history of bladder cancer status post urostomy #7 DVT prophylaxis on heparin drip #8 GI prophylaxis with Pepcid 20 mg twice a day #9 hypothyroidism on levothyroxine CODE STATUS full code Discharge plan: Most likely return home Impression and plan of care have been directed as dictated by the signing physician. Melvina Solorzano nurse practitioner acting as scribe for signing physician.
--- NOTE | 2018-02-22 14:57 | PTCA ---
PERCUTANEOUSTRANS CORORONARY ANGIOGRAPHY DATE OF SERVICE: 02/22/2018. PERFORMING PHYSICIAN: Charly Riley MD, Vaccinator PROCEDURE PERFORMED: Successful stenting of the mid LAD using 2.75 x 15 mm Xience VERONICA with good angiographic results. INDICATION: This is a pleasant 87-year-old gentleman who presented to the hospital 2 days ago with acute inferior ST-elevation myocardial infarction. He underwent an emergent heart catheterization and stenting of the left circumflex. He was found to have critical disease involving the LAD. He was brought today to undergo a PCI of the LAD. APPROACH: Right common femoral artery. COMPLICATION: None. LEVEL OF SEDATION: Moderate sedation length of 21 minutes. PROCEDURE DESCRIPTION: After obtaining an informed consent, the patient was brought to the cardiac slab tripper. The right common femoral artery was cannulated using micropuncture technique, the micropuncture wire passed easily, then I placed a 6-[place] sheath in the right common femoral artery. After that, I did start anticoagulation using Angiomax. Subsequently, I did engage the left main using XB 4 guide. A whisper wire was used to wire the LAD. I did balloon angioplasty using 2.5 x 12 mm balloon. Subsequently, I deployed 2.75 x 15 mm Xience VERONICA where the stent was positioned under fluoroscopy guidance and deployed under 12 atmospheres for 20 seconds with the following angiogram showing good angiographic results and reduction of stenosis from 90% to 0%. POSTPROCEDURE MANAGEMENT: 1. Dual anti-platelet therapy. 2. Risk factors modifications. 3. Follow up with the patient. [id number] / NABILN: [id number] /
[2018-02-22] MEDS: MORPHINE SULFATE 2 MG/ML SYRINGE IVP PRN ×2 (15:31→18:29)
[2018-02-22] MEDS ORDERED: ATROPINE SULFATE 0.1 MG/ML 10ML SYRINGE ONE (16:08)
--- NOTE | 2018-02-22 17:42 | ECHOF ---
Referral Reason:nstemi MEASUREMENTS -------- HEIGHT: 180.3 cm WEIGHT: 77.6 kg BP: 109/66 IVSd: 1.3 cm (0.6 - 1.1) LVIDd: 4.7 cm (3.9 - 5.3) LVPWd: 1.4 cm (0.6 - 1.1) IVSs: 1.6 cm LVIDs: 3.7 cm LVPWs: 1.4 cm Ao Diam: 4.1 cm (2.0 - 3.7) LA Diam: 4.6 cm (2.7 - 3.8) EPSS: 0.3 cm MV E Tito: 0.56 m/s MV DecT: 200 ms MV A Tito: 0.86 m/s MV E/A Ratio: 0.65 RAP: 5.00 mmHg RVSP: 48.84 mmHg MV EF SLOPE: 79.23 mm/s (70 - 150) MV EXCURSION: 14.84 mm (> 18.000) FINDINGS -------- Sinus rhythm. This was a technically adequate study. The left ventricular size is normal. There is mild concentric left ventricular hypertrophy. Overa ll left ventricular systolic function is moderate-severely impaired with, an EF between 30 - 35 %. Anterseptal Hypokinesis Lateral hypokinesis Inferior Hypokinesis Septal Hypokinesis Juda Hypo kinesis. The right ventricle is normal in size. The left atrium is moderately dilated. The right atrial size is normal. There is mild aortic valve sclerosis. There is no evidence of aortic regurgitation. Mild mitral annular calcification present. Mild mitral regurgitation is present. Mild tricuspid regurgitation present. There is moderate pulmonary hypertension. The right ventric ular systolic pressure, as measured by Doppler, is 48.84mmHg. Trace/mild (physiologic) pulmonic regurgitation. The aortic root size is normal. There is no pericardial effusion. CONCLUSIONS -------- 1. The left ventricular size is normal. 2. There is mild concentric left ventricular hypertrophy. 3. Overall left ventricular systolic function is moderate-severely impaired with, an EF between 30 - 35 %. 4. Anterseptal Hypokinesis 5. Lateral hypokinesis 6. Inferior Hypokinesis 7. Septal Hypokinesis 8. Juda Hypokinesis. 9. The right ventricle is normal in size. 10. The left atrium is moderately dilated. 11. The right atrial size is normal. 12. There is mild aortic valve sclerosis. 13. Mild mitral annular calcification present. 14. Mild mitral regurgitation is present. 15. Mild tricuspid regurgitation present. 16. There is moderate pulmonary hypertension. 17. The right ventricular systolic pressure, as measured by Doppler, is 48.84mmHg. 18. Trace/mild (physiologic) pulmonic regurgitation. 19. The aortic root size is normal. 20. There is no pericardial effusion. RESEARCH AND DEVELOPMENT DIRECTOR: Chasidy Marvin RDCS
[2018-02-22 23:58] LABS: Appearance,Urine Cloudy (Clear); Bacteria,Urine Rare /hpf; Bilirubin,Urine Negative (Negative); Blood,Urine Small (Negative); Color,Urine Light Yellow; Glucose,Urine (UA) Negative (Negative); Ketones,Urine Negative (Negative); Leukocyte Esterase,Urine Large (Negative); Mucus,Urine Rare /hpf; Nitrite,Urine Positive (Negative); Protein,Urine 1+ (Negative); RBC,Urine 17 /hpf (0-5); Specific Gravity,Urine 1.019 (1.001-1.035); Urobilinogen,Urine <2.0 mg/dL (<2.0); WBC,Urine >182 /hpf (0-5)
--- NOTE | 2018-02-23 00:04 | XR ---
EXAMINATION TYPE: XR chest 1V portable DATE OF EXAM: 02/22/2018 COMPARISON: 02/20/2018 HISTORY: Fluid overload. Short of breath TECHNIQUE: Single frontal view of the chest is obtained. FINDINGS: There is mild pulmonary congestion. There is slight blunting of left costophrenic angle. T here are chest leads. Thoracic aorta is atheromatous. IMPRESSION: Pulmonary vascularity is increased slightly compared to last exam. Mild heart failure is possible. Possible small left pleural effusion. Limited exam.
[2018-02-23] MEDS: ACETAMINOPHEN TAB 325 MG TAB PO PRN ×2 (00:36→11:21)
[2018-02-23 04:36] VITALS: RESP 18
[2018-02-23 05:53] LABS: Basophils # (A) 0.1 k/uL (0-0.2); Basophils % (A) 1 %; Eosinophils # (A) 0.2 k/uL (0-0.7); Eosinophils % (A) 2 %; HCT 35.4 % (39.0-53.0); HGB 11.2 gm/dL (13.0-17.5); Hypochromasia Slight; Lymphocytes # (A) 1.1 k/uL (1.0-4.8); Lymphocytes % (A) 11 %; MCH 27.6 pg (25.0-35.0); MCHC 31.8 g/dL (31.0-37.0); MCV 86.8 fL (80.0-100.0); Mean Platelet Volume 6.4; Monocytes # (A) 0.8 k/uL (0-1.0); Monocytes % (A) 7 %; Neutrophils # (A) 8.3 k/uL (1.3-7.7); Neutrophils % (A) 78 %; Platelet Count 237 k/uL (150-450); RBC 4.07 m/uL (4.30-5.90); RDW 14.1 % (11.5-15.5); WBC 10.7 k/uL (3.8-10.6)
[2018-02-23 06:02] LABS: INR 1.1 (<1.2); Prothrombin Time 10.5 sec (9.0-12.0)
[2018-02-23] MEDS: LEVOTHYROXINE 25 MCG TAB PO SCH (06:13)
[2018-02-23 06:15] LABS: Albumin 3.1 g/dL (3.5-5.0); Calcium 8.7 mg/dL (8.4-10.2); Magnesium 1.9 mg/dL (1.6-2.3); Potassium 5.1 mmol/L (3.5-5.1); Total Bilirubin 0.5 mg/dL (0.2-1.3); Total Protein 5.6 g/dL (6.3-8.2)
[2018-02-23] MEDS: BUDESONIDE 0.5 MG/2 ML NEBU INHALATION SCH (08:00)
[2018-02-23] MEDS: IPRATROPIUM-ALBUTEROL 3 ML NEB INHALATION SCH ×2 (08:00→11:24)
[2018-02-23] MEDS: FORMOTEROL FUMARATE 20 MCG/2 ML NEBU INHALATION SCH (08:00)
[2018-02-23] MEDS: HYDROCORTISONE 1% CREAM 30 GM TUBE TOPICAL SCH (08:50)
[2018-02-23] MEDS: CLOPIDOGREL 75 MG TAB PO SCH (08:50)
[2018-02-23] MEDS: ATORVASTATIN 40 MG TAB PO SCH (08:50)
[2018-02-23] MEDS: LOSARTAN 50 MG TAB PO SCH (08:50)
[2018-02-23] MEDS: ASPIRIN 325 MG TAB PO SCH (08:50)
[2018-02-23] MEDS: LORATADINE 10 MG TAB PO SCH (08:50)
[2018-02-23] MEDS: METOPROLOL TARTRATE 25 MG TAB PO SCH (08:50)
[2018-02-23] MEDS ORDERED: SPIRONOLACTONE 25 MG TAB PO SCH (09:00)
[2018-02-23] MEDS ORDERED: FAMOTIDINE 20 MG TAB PO SCH (09:00)
--- NOTE | 2018-02-23 11:18 | P.PN ---
Subjective Progress Note Date: 02/23/18 This is an 87-year-old gentleman who presented to the hospital with an acute myocardial infarction. He underwent angioplasty with stent placement of the proximal first obtuse marginal branch of the circumflex on the eighth, yesterday underwent angioplasty and stenting of the LAD. Echocardiogram with Doppler study was performed which revealed an ejection fraction of 30-35% with anterior septal lateral inferior septal hypokinesia. Patient was seen and examined this morning, denied any chest pain or difficulty in breathing. Creatinine today is 2.1, BUN 27. EKG shows normal sinus rhythm with progressive ST-T wave changes noted in the anterior lateral leads, no new changes from post-PCI. Let pressure this morning 155/70 with a heart rate in the 60s, 91% on room air. Hemoglobin 11.2, white blood cell count 10.7, platelet count 237. Sodium 138, potassium 5.1, BUN 27, creatinine 2.1. Objective - Vital Signs Vital signs: Vital Signs Temp 98.8 F 02/23/18 08:00 Pulse 80 02/23/18 08:27 Resp 18 02/23/18 08:00 BP 155/73 02/23/18 08:00 Pulse Ox 91 L 02/23/18 08:00 Intake & Output 02/22/18 02/23/18 02/23/18 18:59 06:59 18:59 Intake Total 2481 360 Output Total 500 Balance 2481 -500 360 Weight 78 kg 77.2 kg Intake: IV 121 Oral 2360 360 Output: Urine 500 Other: Voiding Method Urinal Urinal # Voids 1 - Exam PHYSICAL EXAMINATION: GENERAL: 87-year-old gentleman in no apparent distress at the time of my examination HEENT: Head is atraumatic, normocephalic. Pupils equal, round. Sclera anicteric. Conjunctiva are clear. Mucous membranes of the mouth are moist. Neck is supple. There is no elevated jugular venous pressure.] bruit is heard. HEART EXAMINATION: Heart S1, S2 normal. No murmur or gallop heard. CHEST EXAMINATION: Lungs are clear to auscultation and precussion. No chest wall tenderness is noted on palpation or with deep breathing. ABDOMEN: Soft, nontender. Bowel sounds are heard. No organomegaly noted. EXTREMITIES: 2+ peripheral pulses with no evidence of peripheral edema and no calf tenderness noted. Right groin soft, no evidence of any hematoma. NEUROLOGIC patient is awake, alert and oriented ?-3. . - Labs CBC & Chem 7: 02/23/18 05:25 02/23/18 05:25 Labs: Abnormal Lab Results - Last 24 Hours (Table) 02/22/18 02/23/18 02/23/18 Range/Units 23:33 05:25 05:25 WBC 10.7 H (3.8-10.6) k/uL RBC 4.07 L (4.30-5.90) m/uL Hgb 11.2 L (13.0-17.5) gm/dL Hct 35.4 L (39.0-53.0) % Neutrophils # 8.3 H (1.3-7.7) k/uL BUN 27 H (9-20) mg/dL Creatinine 2.10 H (0.66-1.25) mg/dL Glucose 129 H (74-99) mg/dL Total Protein 5.6 L (6.3-8.2) g/dL Albumin 3.1 L (3.5-5.0) g/dL Urine Protein 1+ H (Negative) Urine Blood Small H (Negative) Ur Leukocyte Esterase Large H (Negative) Urine RBC 17 H (0-5) /hpf Urine WBC >182 H (0-5) /hpf Urine WBC Clumps Few H (None) /hpf Urine Bacteria Rare H (None) /hpf Urine Mucus Rare H (None) /hpf Assessment and Plan Plan: Assessment and plan #1 acute non-ST elevated myocardial infarction. Left circumflex stented on 02/21. LAD stented yesterday. Continue aspirin, Plavix, heparin drip, metoprolol 25 twice a day. Continue Lipitor 40 mg daily. Echocardiogram pending. Aldactone added. #2 COPD exacerbation. #3 contact dermatitis #4 hypertension #5 chronic kidney disease 3b. #6 history of bladder cancer status post urostomy #7 hyperlipidemia #8 hypothyroidism Plan From cardiology's perspective, patient may be able to be discharged home today. We'll make him a follow-up appointment to see Dr. Pickard in the office post discharge. Patient will be discharged home on aspirin 81 mg daily, Lipitor 40 mg daily, Plavix 75 mg daily, losartan 50 mg daily, metoprolol 25 mg one tablet by mouth twice a day, Aldactone 25 mg daily and sublingual nitroglycerin as needed for chest pain. We will check lytes BUN and creatinine just prior to his office visit. DNP note has been reviewed, I agree with a documented findings and plan of care. Patient was seen and examined.
[2018-02-23 14:31] VITALS: BP 111/66; PULSE 62; TEMP 99.9
[2018-02-24] MEDS ORDERED: ASPIRIN 81 MG PO SCH (09:00)
== END 2018-02-23 14:59 | disposition home or self-care (01) | DRG 247 ==
LOC: EC 22:30 → 6ICU 02-21 00:14 → 6SEL 02-21 02:06
PROVIDERS: ADMIT Internal Medicine; ATTEND Internal Medicine
PROC: B2111ZZ Fluoroscopy of Multiple Coronary Arteries using Low Osmolar Contrast (ICD-10-PCS; principal; 2018-02-21 00:41)
PROC: 027034Z Dilation of Coronary Artery, One Artery with Drug-eluting Intraluminal Device, Percutaneous Approach (ICD-10-PCS; principal; 2018-02-21 00:41)
PROC: 4A023N7 Measurement of Cardiac Sampling and Pressure, Left Heart, Percutaneous Approach (ICD-10-PCS; principal; 2018-02-21 00:41)
PROC: 027034Z Dilation of Coronary Artery, One Artery with Drug-eluting Intraluminal Device, Percutaneous Approach (ICD-10-PCS; 2018-02-22)
DX: I21.4 Non-ST elevation (NSTEMI) myocardial infarction (principal); I42.9 Cardiomyopathy, unspecified; J44.1 Chronic obstructive pulmonary disease with (acute) exacerbation; E03.9 Hypothyroidism, unspecified; E78.5 Hyperlipidemia, unspecified; I12.9 Hypertensive chronic kidney disease with stage 1 through stage 4 chronic kidney disease, or unspecified chronic kidney disease; I25.110 Atherosclerotic heart disease of native coronary artery with unstable angina pectoris; L25.9 Unspecified contact dermatitis, unspecified cause; N18.3 Chronic kidney disease, stage 3 (moderate); Z79.82 Long term (current) use of aspirin; Z79.899 Other long term (current) drug therapy; Z83.3 Family history of diabetes mellitus; Z85.51 Personal history of malignant neoplasm of bladder; Z87.891 Personal history of nicotine dependence; Z93.6 Other artificial openings of urinary tract status; Z98.49 Cataract extraction status, unspecified eye; Z90.6 Acquired absence of other parts of urinary tract
CPT/HCPCS: 36415; 71045; 71046; 80053; 80061; 81001; 82550; 82553; 83690; 83735; 84484; 85025; 85379; 85610; 85730; 93005; 93306; 93454; 94640; 94760; 96361; 96365; 96376; 99291

== ENCOUNTER 2018-05-03 07:19 | Inpatient (IN) | payer MEDICARE, BC ==
[2018-05-03] MEDS ORDERED: ACETAMINOPHEN TAB 500 MG TAB PO STA (07:52)
[2018-05-03] MEDS ORDERED: IBUPROFEN 600 MG TAB PO STA (07:52)
--- NOTE | 2018-05-03 07:58 | ED ---
General Adult HPI - General Chief complaint: Nausea/Vomiting/Diarrhea Stated complaint: Weakness Time Seen by Provider: 05/03/18 07:20 Source: patient, EMS, RN notes reviewed Mode of arrival: EMS Limitations: no limitations - History of Present Illness Initial comments: This is an 87-year-old male who presents to the emergency department complaining of generalized weakness. Patient has a fever of 102 according to the . Patient states the fever began last night as did the weakness. Patient does complain of occasional cough and some shortness of breath. Patient also is nauseated and has had diarrhea since yesterday. Patient has a urostomy secondary to his bladder cancer. Patient has had urinary tract infections in the past that have caused him to have high fevers and generalized weakness. Patient can barely ambulatory today so the ambulance needed to be called to bring him into the hospital. Patient denies any headache. Family states he is not altered in any way. - Related Data Home Medications Medication Instructions Recorded Confirmed Aspirin 81 mg PO DAILY 02/21/18 05/03/18 Cetirizine HCl [Zyrtec] 10 mg PO DAILY 02/21/18 05/03/18 Fluticasone/Salmeterol [Advair 1 puff INHALATION RT-BID 02/21/18 05/03/18 500-50 Diskus] Ipratropium/Albuterol Sulfate 1 puff INHALATION RT-QID 02/21/18 05/03/18 [Combivent Respimat Inhaler] Levothyroxine Sodium 25 mcg PO DAILY 02/21/18 05/03/18 Metoprolol Tartrate [Lopressor] 12.5 mg PO BID 05/03/18 05/03/18 predniSONE 5 mg PO DAILY 05/03/18 05/03/18 Previous Rx's Medication Instructions Recorded Atorvastatin [Lipitor] 40 mg PO DAILY #30 tab 02/23/18 Clopidogrel [Plavix] 75 mg PO DAILY #30 tab 02/23/18 Losartan [Cozaar] 50 mg PO DAILY #30 tab 02/23/18 Nitroglycerin Sl Tabs [Nitrostat] 0.4 mg SUBLINGUAL Q5M PRN #25 tab 02/23/18 Allergies Allergy/AdvReac Type Severity Reaction Status Date / Time No Known Allergies Allergy Verified 05/03/18 08:04 Review of Systems ROS Statement: Those systems with pertinent positive or pertinent negative responses have been documented in the HPI. ROS Other: All systems not noted in ROS Statement are negative. Past Medical History Past Medical History: Cancer, COPD, Hypertension, Myocardial Infarction (CT) Additional Past Medical History / Comment(s): Bladder cancer History of Any Multi-Drug Resistant Organisms: C-DIFF Date of last positivie culture/infection: c-diff 2007 Past Surgical History: Appendectomy, Heart Catheterization With Stent, Hernia Repair Additional Past Surgical History / Comment(s): bladder removal, urostomy, carotid endarterectomy bilaterally, cateract surgery Past Anesthesia/Blood Transfusion Reactions: No Reported Reaction Past Psychological History: No Psychological Hx Reported Smoking Status: Former smoker Past Alcohol Use History: None Reported Past Drug Use History: None Reported - Past Family History Father Family Medical History: Cancer Mother Family Medical History: CVA/TIA, Diabetes Mellitus General Exam - General Exam Comments Initial Comments: GENERAL: Patient is well-developed and well-nourished. Patient is nontoxic and well- hydrated and is in mild distress. ENT: Neck is soft and supple. No significant lymphadenopathy is noted. Oropharynx is clear. Moist mucous membranes. Neck has full range of motion without eliciting any pain. EYES: The sclera were anicteric and conjunctiva were pink and moist. Extraocular movements were intact and pupils were equal round and reactive to light. Eyelids were unremarkable. PULMONARY: Unlabored respirations. Good breath sounds bilaterally. No audible rales rhonchi or wheezing was noted. CARDIOVASCULAR: There is a regular rate and rhythm without any murmurs gallops or rubs. ABDOMEN: Soft and nontender with normal bowel sounds. SKIN: Skin is clear with no lesions or rashes and otherwise unremarkable. NEUROLOGIC: Patient is alert and oriented x3. Cranial nerves II through XII are grossly intact. Motor and sensory are also intact. Normal speech, volume and content. Symmetrical smile. MUSCULOSKELETAL: Normal extremities with adequate strength and full range of motion. LYMPHATICS: No significant lymphadenopathy is noted PSYCHIATRIC: Normal psychiatric evaluation. Limitations: no limitations Course Vital Signs 05/03/18 05/03/18 07:21 09:32 Temperature 102.6 F H 100.1 F H Pulse Rate 95 91 Respiratory 18 18 Rate Blood Pressure 156/121 157/75 O2 Sat by Pulse 92 L 98 Oximetry Medical Decision Making - Medical Decision Making EKG shows normal sinus rhythm at 94 bpm IN interval 266 QRS is 104 QT interval 332 QTC is 4:15. Patient's EKG shows no ST segment elevation or depression. No T-wave abnormalities are noted. Chest x-ray shows no acute infiltrate. I started patient on antibiotics secondary to urinary tract infection. I spoke with Dr. Tatum he agreed to admit the patient admitted the patient. I wrote admitting orders. - Lab Data Result diagrams: 05/03/18 07:36 05/03/18 07:36 Lab Results 05/03/18 05/03/18 05/03/18 Range/Units 07:30 07:36 07:36 WBC 17.6 H (3.8-10.6) k/uL RBC 4.71 (4.30-5.90) m/uL Hgb 12.5 L (13.0-17.5) gm/dL Hct 40.3 (39.0-53.0) % MCV 85.5 (80.0-100.0) fL MCH 26.5 (25.0-35.0) pg MCHC 31.0 (31.0-37.0) g/dL RDW 14.8 (11.5-15.5) % Plt Count 194 (150-450) k/uL Neutrophils % 91 % Lymphocytes % 4 % Monocytes % 4 % Eosinophils % 1 % Basophils % 0 % Neutrophils # 16.0 H (1.3-7.7) k/uL Lymphocytes # 0.6 L (1.0-4.8) k/uL Monocytes # 0.7 (0-1.0) k/uL Eosinophils # 0.1 (0-0.7) k/uL Basophils # 0.0 (0-0.2) k/uL Hypochromasia Slight PT (9.0-12.0) sec INR (<1.2) APTT (22.0-30.0) sec Sodium 138 (137-145) mmol/L Potassium 4.8 (3.5-5.1) mmol/L Chloride 108 H (98-107) mmol/L Carbon Dioxide 19 L (22-30) mmol/L Anion Gap 11 mmol/L BUN 37 H (9-20) mg/dL Creatinine 2.00 H (0.66-1.25) mg/dL Est GFR (CKD-EPI)AfAm 34 (>60 ml/min/1.73 sqM) Est GFR (CKD-EPI)NonAf 30 (>60 ml/min/1.73 sqM) Glucose 145 H (74-99) mg/dL Plasma Lactic Acid Robbie (0.7-2.0) mmol/L Calcium 9.1 (8.4-10.2) mg/dL Total Bilirubin 1.0 (0.2-1.3) mg/dL AST 32 (17-59) U/L ALT 25 (21-72) U/L Alkaline Phosphatase 62 (38-126) U/L Total Protein 6.7 (6.3-8.2) g/dL Albumin 3.4 L (3.5-5.0) g/dL Urine Color Yellow Urine Appearance Cloudy (Clear) Urine pH 6.0 (5.0-8.0) Ur Specific [place] 1.014 (1.001-1.035) Urine Protein 2+ H (Negative) Urine Glucose (UA) Negative (Negative) Urine Ketones Negative (Negative) Urine Blood Moderate H (Negative) Urine Nitrite Positive (Negative) Urine Bilirubin Negative (Negative) Urine Urobilinogen <2.0 (<2.0) mg/dL Ur Leukocyte Esterase Large H (Negative) Urine RBC 46 H (0-5) /hpf Urine WBC >182 H (0-5) /hpf Urine WBC Clumps Occasional H (None) /hpf Ur Squamous Epith Cells 2 (0-4) /hpf Urine Bacteria Moderate H (None) /hpf Urine Mucus Rare H (None) /hpf 05/03/18 05/03/18 Range/Units 07:36 07:36 WBC (3.8-10.6) k/uL RBC (4.30-5.90) m/uL Hgb (13.0-17.5) gm/dL Hct (39.0-53.0) % MCV (80.0-100.0) fL MCH (25.0-35.0) pg MCHC (31.0-37.0) g/dL RDW (11.5-15.5) % Plt Count (150-450) k/uL Neutrophils % % Lymphocytes % % Monocytes % % Eosinophils % % Basophils % % Neutrophils # (1.3-7.7) k/uL Lymphocytes # (1.0-4.8) k/uL Monocytes # (0-1.0) k/uL Eosinophils # (0-0.7) k/uL Basophils # (0-0.2) k/uL Hypochromasia PT 13.2 H (9.0-12.0) sec INR 1.4 H (<1.2) APTT 22.8 (22.0-30.0) sec Sodium (137-145) mmol/L Potassium (3.5-5.1) mmol/L Chloride (98-107) mmol/L Carbon Dioxide (22-30) mmol/L Anion Gap mmol/L BUN (9-20) mg/dL Creatinine (0.66-1.25) mg/dL Est GFR (CKD-EPI)AfAm (>60 ml/min/1.73 sqM) Est GFR (CKD-EPI)NonAf (>60 ml/min/1.73 sqM) Glucose (74-99) mg/dL Plasma Lactic Acid Robbie 1.9 (0.7-2.0) mmol/L Calcium (8.4-10.2) mg/dL Total Bilirubin (0.2-1.3) mg/dL AST (17-59) U/L ALT (21-72) U/L Alkaline Phosphatase (38-126) U/L Total Protein (6.3-8.2) g/dL Albumin (3.5-5.0) g/dL Urine Color Urine Appearance (Clear) Urine pH (5.0-8.0) Ur Specific [place] (1.001-1.035) Urine Protein (Negative) Urine Glucose (UA) (Negative) Urine Ketones (Negative) Urine Blood (Negative) Urine Nitrite (Negative) Urine Bilirubin (Negative) Urine Urobilinogen (<2.0) mg/dL Ur Leukocyte Esterase (Negative) Urine RBC (0-5) /hpf Urine WBC (0-5) /hpf Urine WBC Clumps (None) /hpf Ur Squamous Epith Cells (0-4) /hpf Urine Bacteria (None) /hpf Urine Mucus (None) /hpf Disposition Clinical Impression: Urinary tract infection, Weakness Disposition: ADMITTED IP TO THIS HOSP Referrals: Alok Ospina MD [Primary Care Provider] - 1-2 days Time of Disposition: 09:52
[2018-05-03 08:08] LABS: Basophils % (A) 0 %; Eosinophils # (A) 0.1 k/uL (0-0.7); Eosinophils % (A) 1 %; HCT 40.3 % (39.0-53.0); HGB 12.5 gm/dL (13.0-17.5); Hypochromasia Slight; Lymphocytes # (A) 0.6 k/uL (1.0-4.8); Lymphocytes % (A) 4 %; MCH 26.5 pg (25.0-35.0); MCV 85.5 fL (80.0-100.0); Mean Platelet Volume 7.1; Monocytes # (A) 0.7 k/uL (0-1.0); Monocytes % (A) 4 %; Neutrophils % (A) 91 %; Platelet Count 194 k/uL (150-450); RBC 4.71 m/uL (4.30-5.90); RDW 14.8 % (11.5-15.5); WBC 17.6 k/uL (3.8-10.6)
[2018-05-03 08:15] LABS: INR 1.4 (<1.2); Partial Thromboplastin Time 22.8 sec (22.0-30.0); Prothrombin Time 13.2 sec (9.0-12.0)
[2018-05-03] MEDS: SODIUM CHLORIDE 0.9% 500 ML IV SCH ×2 (08:15→08:18)
[2018-05-03 08:29] LABS: Albumin 3.4 g/dL (3.5-5.0); Calcium 9.1 mg/dL (8.4-10.2); Total Protein 6.7 g/dL (6.3-8.2)
[2018-05-03 08:31] LABS: Potassium 4.8 mmol/L (3.5-5.1)
[2018-05-03 08:42] LABS: Appearance,Urine Cloudy (Clear); Bacteria,Urine Moderate /hpf; Bilirubin,Urine Negative (Negative); Blood,Urine Moderate (Negative); Color,Urine Yellow; Glucose,Urine (UA) Negative (Negative); Ketones,Urine Negative (Negative); Leukocyte Esterase,Urine Large (Negative); Mucus,Urine Rare /hpf; Nitrite,Urine Positive (Negative); Protein,Urine 2+ (Negative); RBC,Urine 46 /hpf (0-5); Specific Gravity,Urine 1.014 (1.001-1.035); Squamous Epithelial Cell,Urine 2 /hpf (0-4); Urobilinogen,Urine <2.0 mg/dL (<2.0); WBC,Urine >182 /hpf (0-5)
--- NOTE | 2018-05-03 08:53 | XR ---
EXAMINATION TYPE: XR chest 2V DATE OF EXAM: 05/03/2018 COMPARISON: 03/04/2018 HISTORY: 87-year-old male with fever and vomiting TECHNIQUE: AP and lateral views FINDINGS: Heart upper limits of normal in size. Aorta within normal limits. Mild diffuse interstitial prominenc e is unchanged. No pleural effusion on the lateral view. Some patchy opacity at the peripheral left b ase is unchanged and suspected to represent prominent epicardial fat pad. Subtle nodularity periphera l right base and also in the right midlung in the reassessed at follow-up. IMPRESSION: 1. Borderline cardiomegaly. 2. Chronic changes along with opacity at the cardiac apex, suspected epicardial fat pad. 3. Some subtle nodularity peripheral right mid and lower lung. Nonemergent follow-up CT chest can ass ess for underlying pulmonary nodules. 4. Otherwise, no acute process identified.
[2018-05-03] MEDS ORDERED: cefTRIAXone 2,000 MG in SODIUM CHLORIDE 0.9% 100 ML IVPB STA (09:02)
[2018-05-03] MEDS ORDERED: SODIUM CHLORIDE 0.9% 1,000 ML IV ONE (09:52)
[2018-05-03] MEDS ORDERED: NITROGLYCERIN SL TABS 0.4 MG TAB SUBLINGUAL PRN (10:44)
[2018-05-03] MEDS: ASPIRIN 81 MG PO SCH (12:11)
[2018-05-03] MEDS: ATORVASTATIN 40 MG TAB PO SCH (12:11)
[2018-05-03] MEDS: METOPROLOL TARTRATE 12.5 MG TAB PO SCH ×2 (12:12→21:14)
[2018-05-03] MEDS: LOSARTAN 50 MG TAB PO SCH (12:12)
[2018-05-03] MEDS: LEVOTHYROXINE 25 MCG TAB PO SCH (12:12)
[2018-05-03] MEDS: CLOPIDOGREL 75 MG TAB PO SCH (12:12)
--- NOTE | 2018-05-03 12:48 | P.HPIM ---
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 with a previous medical history significant for hypertension and hypertensive cardiovascular disease with left ventricular hypertrophy, CAD post PCI of the first obtuse marginal and LAD with 2 drug-eluting stent placement, hyperlipidemia, bladder cancer status post urostomy, history of COPD, patient stated that he was in his usual state of health about Thursday when he developed to have a significant abdominal pain associated with nausea and one episode of vomiting and significant diarrhea after he had a burger [place] on Thursday night he spent most of the day at home yesterday he ended up coming to the ER today with a temperature of 102 his urostomy bag appear to be clear however his urine was positive for elevated WBC with positive nitrite and positive leukocyte esterase patient was started on IV antibiotic after sending the urine for culture and blood culture and he was admitted to the hospital for evaluation ID consultation was obtained from Dr. Weiner. Review of Systems Constitutional: Reports chills, Reports fatigue, Reports fever, Reports malaise , Reports weakness, Denies anorexia Eyes: denies blurred vision, denies bulging eye, denies decreased vision Ears: deny: decreased hearing Ears, nose, mouth and throat: Denies dysphagia, Denies neck lump, Denies sore throat Cardiovascular: Reports decreased exercise tolerance, Reports shortness of breath, Denies chest pain, Denies dyspnea on exertion, Denies phlebitis, Denies rapid heart beat, Denies syncope Respiratory: Denies congestion, Denies cough, Denies cough with sputum, Denies home oxygen, Denies sleep apnea, Denies snoring, Denies wheezing Gastrointestinal: Reports abdominal pain, Reports bloating, Reports change in bowel habits, Reports diarrhea, Reports nausea, Reports vomiting, Denies coffee ground emesis, Denies constipation, Denies heartburn, Denies melena Musculoskeletal: Denies myalgias Musculoskeletal: absent: ankle pain, ankle stiffness, ankle swelling, elbow pain , elbow stiffness, elbow swelling, foot pain, foot stiffness, foot swelling, hand pain, hand stiffness, hand swelling, hip pain, hip stiffness, hip swelling , knee pain, knee stiffness, knee swelling, shoulder pain, shoulder stiffness, shoulder swelling, wrist pain, wrist stiffness, wrist swelling Integumentary: Denies pruritus, Denies rash Neurological: Denies numbness, Denies weakness Psychiatric: Denies anxiety, Denies depression Endocrine: Denies fatigue, Denies weight change Past Medical History Past Medical History: Coronary Artery Disease (CAD), Cancer, COPD, Hyperlipidemia, Hypertension, Myocardial Infarction (DC), Osteoarthritis (OA) Additional Past Medical History / Comment(s): Bladder cancer post urostomy, CAD post PCI of LAD and OM1, hypertension and hypertensive cardiovascular disease, hyperlipidemia, osteoarthritis, history of pancreatitis, history of carotid artery disease status post bilateral carotid endarterectomies, history of C. diff colitis. History of Any Multi-Drug Resistant Organisms: C-DIFF Date of last positivie culture/infection: c-diff 2007 Past Surgical History: Appendectomy, Heart Catheterization With Stent, Hernia Repair Additional Past Surgical History / Comment(s): bladder removal, urostomy, carotid endarterectomy bilaterally, cateract surgery, left heart catheterization with PCI of the first obtuse marginal and LAD, incisional hernia surgery. Past Anesthesia/Blood Transfusion Reactions: No Reported Reaction Past Psychological History: No Psychological Hx Reported Smoking Status: Former smoker Past Alcohol Use History: None Reported Past Drug Use History: None Reported - Past Family History Father Family Medical History: Cancer (father at age of 65 from bone cancer.) Mother Family Medical History: CVA/TIA (mother at age 67 from diabetes and CVA.), Diabetes Mellitus Brother(s) Family Medical History: Coronary Artery Disease (CAD) (patient had one brother who at age of 86 from heart disease.) Sister(s) Family Medical History: No Reported History (patient has one sister who is alive and well.) Daughter(s) Family Medical History: No Reported History (patient has one daughter who major medical problems.) Son(s) Family Medical History: No Reported History (patient has one son no major medical problems.) Medications and Allergies Home Medications Medication Instructions Recorded Confirmed Type Aspirin 81 mg PO DAILY 02/21/18 05/03/18 History Cetirizine HCl [Zyrtec] 10 mg PO DAILY 02/21/18 05/03/18 History Fluticasone/Salmeterol [Advair 1 puff INHALATION RT-BID 02/21/18 05/03/18 History 500-50 Diskus] Ipratropium/Albuterol Sulfate 1 puff INHALATION RT-QID 02/21/18 05/03/18 History [Combivent Respimat Inhaler] Levothyroxine Sodium 25 mcg PO DAILY 02/21/18 05/03/18 History Atorvastatin [Lipitor] 40 mg PO DAILY #30 tab 02/23/18 05/03/18 Rx Clopidogrel [Plavix] 75 mg PO DAILY #30 tab 02/23/18 05/03/18 Rx Losartan [Cozaar] 50 mg PO DAILY #30 tab 02/23/18 05/03/18 Rx Nitroglycerin Sl Tabs [Nitrostat] 0.4 mg SUBLINGUAL Q5M PRN #25 tab 02/23/18 Rx Metoprolol Tartrate [Lopressor] 12.5 mg PO BID 05/03/18 05/03/18 History predniSONE 5 mg PO DAILY 05/03/18 05/03/18 History Allergies Allergy/AdvReac Type Severity Reaction Status Date / Time No Known Allergies Allergy Verified 05/03/18 08:04 Physical Exam Vitals: Vital Signs Temp Pulse Resp BP Pulse Ox 05/03/18 12:12 78 18 110/59 98 05/03/18 11:02 98.2 F 72 18 120/60 96 05/03/18 09:32 100.1 F H 91 18 157/75 98 05/03/18 07:21 102.6 F H 95 18 156/121 92 L Intake and Output 05/02/18 05/03/18 05/03/18 22:59 06:59 14:59 Other: Weight 77.111 kg - Constitutional General appearance: average body habitus, mild distress - EENT Eyes: anicteric sclerae, EOMI, PERRLA, no ptosis, no scleral icterus, normal appearance ENT: hearing grossly normal, NA/AT, normal oropharynx, no thrush Ears: bilateral: normal - Neck Neck: no lymphadenopathy, normal ROM, no rigidity, no stridor, no thyromegaly Carotids: bilateral: upstroke delayed Thyroid: bilateral: normal size - Respiratory Respiratory: bilateral: diminished, prolonged expiration, negative: dullness, rales, rhonchi, wheezing - Cardiovascular Rhythm: regular Heart sounds: normal: S1, S2 Abnormal Heart Sounds: systolic murmur, no S3 Gallop - Gastrointestinal General gastrointestinal: normal bowel sounds, soft, no splenomegaly, no tenderness, no umbilical hernia, ventral hernia (there is urostomy with hernia.) - Integumentary Integumentary: normal, normal turgor - Neurologic Neurologic: CNII-XII intact - Musculoskeletal Musculoskeletal: generalized weakness, strength equal bilaterally - Psychiatric Psychiatric: A&O x's 3, appropriate affect, intact judgment & insight Results CBC & Chem 7: 05/03/18 07:36 18 07:36 Labs: Abnormal Lab Results - Last 24 Hours (Table) 05/03/18 05/03/18 05/03/18 Range/Units 07:30 07:36 07:36 WBC 17.6 H (3.8-10.6) k/uL Hgb 12.5 L (13.0-17.5) gm/dL Neutrophils # 16.0 H (1.3-7.7) k/uL Lymphocytes # 0.6 L (1.0-4.8) k/uL PT (9.0-12.0) sec INR (<1.2) Chloride 108 H (98-107) mmol/L Carbon Dioxide 19 L (22-30) mmol/L BUN 37 H (9-20) mg/dL Creatinine 2.00 H (0.66-1.25) mg/dL Glucose 145 H (74-99) mg/dL Albumin 3.4 L (3.5-5.0) g/dL Urine Protein 2+ H (Negative) Urine Blood Moderate H (Negative) Ur Leukocyte Esterase Large H (Negative) Urine RBC 46 H (0-5) /hpf Urine WBC >182 H (0-5) /hpf Urine WBC Clumps Occasional H (None) /hpf Urine Bacteria Moderate H (None) /hpf Urine Mucus Rare H (None) /hpf 05/03/18 Range/Units 07:36 WBC (3.8-10.6) k/uL Hgb (13.0-17.5) gm/dL Neutrophils # (1.3-7.7) k/uL Lymphocytes # (1.0-4.8) k/uL PT 13.2 H (9.0-12.0) sec INR 1.4 H (<1.2) Chloride (98-107) mmol/L Carbon Dioxide (22-30) mmol/L BUN (9-20) mg/dL Creatinine (0.66-1.25) mg/dL Glucose (74-99) mg/dL Albumin (3.5-5.0) g/dL Urine Protein (Negative) Urine Blood (Negative) Ur Leukocyte Esterase (Negative) Urine RBC (0-5) /hpf Urine WBC (0-5) /hpf Urine WBC Clumps (None) /hpf Urine Bacteria (None) /hpf Urine Mucus (None) /hpf Thrombosis Risk Factor Assmnt - DVT/VTE Prophylaxis DVT/VTE Prophylaxis: Pharmacologic Prophylaxis ordered, Mechanical Prophylaxis ordered Assessment and Plan Assessment: Assessment and plan: 1. UTI with sepsis. Start the patient on IV fluid normal saline 75 mL an hour , continue IV antibiotic in the form of Rocephin 1 g IV piggyback every 24 hours , urine culture, blood culture 2, repeat his labs in next 24 hours, ID consult. 2. 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 Continue IV fluid resuscitation in the form of normal saline at 75 mL an hour repeat CMP tomorrow morning. 3. Diarrhea. Check stool for Clostridium difficile toxin a and B. 4. CAD post PCI of the LAD and OM1. Continue aspirin 81 mg once every day, Plavix 75 mg orally once every day, metoprolol 12.5 mg orally twice every day, Lipitor 40 mg orally once every day, continue patient also on nitroglycerin as needed. 5. Hypertension and hypertensive cardiovascular disease. Continue patient on metoprolol 12.5 mg orally twice every day and losartan 50 mg orally once every day. 6. Hyperlipidemia. Continue Lipitor 40 mg orally once every day. 7. COPD. Currently the patient on Advair Diskus 250/50 one puff inhalation twice every day, oxygen as needed. 8. Osteoarthritis. Stable at this time. 9. GI prophylaxis. Continue patient on PPI. 10. DVT prophylaxis. Lovenox 30 mg subcutaneously once every day. 11. Admitted to inpatient. Estimate a length of stay 2 midnights. 12. Patient is full code discussed with patient and his and daughter at the bedside.
[2018-05-03] MEDS: IPRATROPIUM-ALBUTEROL 3 ML NEB INHALATION SCH ×2 (16:23→19:47)
[2018-05-03] MEDS: methylPREDNISolone SOD SUCCI 40 MG/ML 1 ML VIAL IV SCH (16:38)
[2018-05-03] MEDS: SYMBICORT 160-4.5 MCG INHALER INHALATION SCH (19:47)
[2018-05-03 20:53] LABS: Glucose,Whole Blood 225 mg/dL (75-99)
[2018-05-03] MEDS: INSULIN ASPART 100 UNIT/ML 1 ML 10 ML VIAL SQ SCH (21:30)
[2018-05-04] MEDS: methylPREDNISolone SOD SUCCI 40 MG/ML 1 ML VIAL IV SCH ×4 (00:15→22:19)
[2018-05-04] MEDS: IPRATROPIUM-ALBUTEROL 3 ML NEB INHALATION SCH ×4 (02:15→20:15)
[2018-05-04 04:19] LABS: Hemoglobin A1C 7.3 % (4.0-6.0)
--- NOTE | 2018-05-04 06:10 | CONS ---
CONSULTATION DATE OF SERVICE: 05/03/2018 REASON FOR CONSULTATION: Sepsis. HISTORY OF PRESENT ILLNESS: The patient is an 87-year-old male with a past medical history significant for bladder cancer; the patient is status post cystectomy and urostomy; history of COPD. The patient has been brought into the ER at [facility] this morning with chief complaints of rigors and chills. His symptoms have been going on since the weekend, that is 2 days prior to presentation to hospital. The patient has been feeling weak and tired and no energy. Has been complaining of some pain in the lower abdominal area, more of a dull aching pain, 3 to 4 out of 10 and no radiation. The patient has been nauseated but no vomiting. Denies having any diarrhea. The patient has been evaluated by the ER physician with these symptoms. On arrival to the ER, the patient did have a fever 102.6 degrees Fahrenheit. The patient was tachycardic with a heart rate of 95 and a white count of 17.6. UA has been obtained, which showed large leukocyte esterases with than 182 WBCs. The patient has been admitted to the hospital. Infectious Disease was consulted for further recommendation regarding antibiotic therapy. REVIEW OF SYSTEMS: CONSTITUTIONAL: Positive for weakness along with fever and chills. EYES: No complaint. ENT: No complaint. RESPIRATORY: No complaint. CARDIOVASCULAR: No complaint. GENITOURINARY: As per HPI. GASTROINTESTINAL: As per HPI. MUSCULOSKELETAL: No complaint. INTEGUMENTARY: No complaint. PSYCHOLOGICAL: No complaint. ENDOCRINE: No complaint. NEUROLOGIC: No complaint. PAST MEDICAL HISTORY: Coronary artery disease, COPD, hyperlipidemia, hypertension, myocardial infarction, osteoarthritis, history of bladder cancer, C difficile colitis. PAST SURGICAL HISTORY: Appendectomy, heart catheterization and stent, hernia repair, bladder removal and urostomy placement, carotid endarterectomy bilaterally, cataract surgery, PTCA and stenting of the LAD. SOCIAL HISTORY: Remote history of smoking. No drinking or drug use. FAMILY HISTORY: Father history of bone cancer. Mother history of CVA and TIA and diabetes mellitus. ALLERGIES: No known drug allergies. MEDICATION: Medications currently include the patient is on DuoNeb, aspirin, Lipitor, Symbicort, Rocephin 2 grams daily, Plavix, Lovenox, NovoLog, Synthroid, Cozaar, Solu-Medrol, Lopressor, Nitrostat, Protonix. PHYSICAL EXAMINATION: On examination, blood pressure 108/55 with a pulse of 76, temperature 98.2. He is 93% on room air. General description is an elderly male lying in bed in no distress. No tachypnea or accessory muscle of respiration use. HEENT examination shows no pallor or scleral icterus. Oral mucosa is dry. No pharyngeal erythema or thrush. NECK: Trachea central. No thyromegaly. LUNGS: Unlabored breathing, clear to auscultation anteriorly. No wheeze or crackle. HEART: S1, S2. Regular rate and rhythm. No added sound. ABDOMEN: Soft. There was no tenderness. No guarding or rigidity. EXTREMITIES: No edema of feet. SKIN EXAMINATION: No rash or mass palpable. NEUROLOGICALLY: Patient is awake, alert, oriented x3. Mood and affect normal. LABS: Hemoglobin 12.5, white count 17.6 with a BUN of 37, creatinine 2.0. Urine was positive with large leukocyte esterases. Blood culture with gram-negative bacilli. DIAGNOSTIC IMPRESSION AND PLAN: 1. Patient admitted to the hospital with sepsis in a patient who did have a fever, elevated white count and tachycardia, source is urinary in a patient who did have some lower abdominal pain, now with evidence of a gram-negative bacteremia. 2. The patient who did have renal insufficiency, will need to rule out obstructive uropathy and complicated urinary tract infection. PLAN: 1. Rocephin 2 grams IV piggyback daily. 2. IV fluids. 3. Will obtain ultrasound of the kidneys to make sure no evidence of any hydronephrosis or structure abnormality. 4. RN has been advised to change his urostomy bag and obtain a urine culture from a new urostomy bag to rule out colonization. 5. We will follow up on clinical condition and culture to further adjust medication if needed. Thank you for this consultation. Will follow this patient along with you. MMODL / IJN: [id number] /
[2018-05-04] MEDS: LEVOTHYROXINE 25 MCG TAB PO SCH (06:33)
[2018-05-04 07:10] LABS: Glucose,Whole Blood 258 mg/dL (75-99)
[2018-05-04] MEDS: ASPIRIN 81 MG PO SCH (08:24)
[2018-05-04] MEDS: METOPROLOL TARTRATE 12.5 MG TAB PO SCH ×2 (08:24→22:19)
[2018-05-04] MEDS: CLOPIDOGREL 75 MG TAB PO SCH (08:24)
[2018-05-04] MEDS: LOSARTAN 50 MG TAB PO SCH (08:24)
[2018-05-04] MEDS: ATORVASTATIN 40 MG TAB PO SCH (08:24)
[2018-05-04] MEDS: PANTOPRAZOLE 40 MG/10 ML VIAL IVP SCH (08:25)
[2018-05-04] MEDS: ENOXAPARIN 30 MG/0.3 ML SYRINGE SQ SCH (08:25)
[2018-05-04] MEDS: INSULIN ASPART 100 UNIT/ML 1 ML 10 ML VIAL SQ SCH ×4 (08:25→22:20)
[2018-05-04] MEDS: cefTRIAXone 2,000 MG in SODIUM CHLORIDE 0.9% 100 ML IVPB SCH ×2 (08:34→09:33)
[2018-05-04 09:56] LABS: Basophils % (A) 0 %; Eosinophils % (A) 0 %; HCT 34.7 % (39.0-53.0); HGB 10.6 gm/dL (13.0-17.5); Hypochromasia Moderate; Lymphocytes # (A) 0.3 k/uL (1.0-4.8); Lymphocytes % (A) 3 %; MCH 26.7 pg (25.0-35.0); MCHC 30.7 g/dL (31.0-37.0); MCV 86.8 fL (80.0-100.0); Mean Platelet Volume 6.9; Monocytes # (A) 0.1 k/uL (0-1.0); Monocytes % (A) 1 %; Neutrophils # (A) 13.1 k/uL (1.3-7.7); Neutrophils % (A) 96 %; Platelet Count 168 k/uL (150-450); RBC 3.99 m/uL (4.30-5.90); RDW 14.8 % (11.5-15.5); WBC 13.6 k/uL (3.8-10.6)
[2018-05-04 10:26] LABS: Albumin 2.8 g/dL (3.5-5.0); Calcium 8.1 mg/dL (8.4-10.2); Potassium 4.7 mmol/L (3.5-5.1); Total Bilirubin 0.3 mg/dL (0.2-1.3); Total Protein 5.8 g/dL (6.3-8.2)
--- NOTE | 2018-05-04 10:38 | US ---
EXAMINATION TYPE: US renals and bladder DATE OF EXAM: 05/04/2018 COMPARISON: Urography CLINICAL HISTORY: Fever ,UTI , Elevated Cr. EXAM MEASUREMENTS: Right Kidney: 10.2 x 4.7 x 4.6 cm Left Kidney: 9.6 x 5.8 x 4.8 cm Right Kidney: mild hydronephrosis, moderately lobulated, cyst inferior pole measuring 2.5 x 2.4 x 2. 2cm Left Kidney: Question mild hydronephrosis, severely lobulated kidney Bladder: Allison, patient has no bladder, was removed 10 years prior due to bladder cancer. IMPRESSION: Mild bilateral hydronephrosis with lobulated margins greater on the left. No nephrolithiasis. Simple appearing lower pole right renal cyst measuring 2.5 cm. Could not exclude a solid lesion along the mid pole left kidney recommend follow-up CT scan
[2018-05-04] MEDS: SYMBICORT 160-4.5 MCG INHALER INHALATION SCH ×2 (10:44→20:14)
[2018-05-04 12:29] LABS: Glucose,Whole Blood 283 mg/dL (75-99)
[2018-05-04] MEDS ORDERED: INSULIN ASPART 100 UNIT/ML 1 ML 10 ML VIAL SQ ONE (12:36)
--- NOTE | 2018-05-04 13:32 | P.PN ---
Subjective Progress Note Date: 05/04/18 This is an 87-year-old male one of Dr. Bhavesh Dickinson with a previous medical history significant for hypertension and hypertensive cardiovascular disease with left ventricular hypertrophy, CAD post PCI of the first obtuse marginal and LAD with 2 drug-eluting stent placement, hyperlipidemia, bladder cancer status post urostomy, history of COPD, patient stated that he was in his usual state of health about Thursday when he developed to have a significant abdominal pain associated with nausea and one episode of vomiting and significant diarrhea after he had a burger [place] on Thursday night he spent most of the day at home yesterday he ended up coming to the ER today with a temperature of 102 his urostomy bag appear to be clear however his urine was positive for elevated WBC with positive nitrite and positive leukocyte esterase patient was started on IV antibiotic after sending the urine for culture and blood culture and he was admitted to the hospital for evaluation ID consultation was obtained from Dr. Weiner. 05/04: Patient is followed by Dr. Weiner and continued on Rocephin 2 g daily. Renal ultrasound reveals mild bilateral hydronephrosis with lobulated margins greater on the left. No nephrolithiasis. Simple-appearing lower pole right renal cyst measuring 2.5 cm. Could not exclude a solid lesion along the mid pole left kidney. Consult with Dr. Arreguin added. Patient has been afebrile since admission. Pulse ox 96% on room air. Consultative for PT and OT. C. diff toxin specimen has not been obtained. Hemoglobin A1c is 7.3. Sugars are elevated patient is on Solu-Medrol 40 mg IV every 8 hours. BUN 37 creatinine 1.96. Blood culture is positive for gram-negative bacilli as well as urine culture. Objective - Vital Signs Vital signs: Vital Signs Temp 98.2 F 05/04/18 06:27 Pulse 58 L 05/04/18 06:27 Resp 16 05/04/18 06:27 BP 130/52 05/04/18 06:27 Pulse Ox 96 05/04/18 06:27 Intake & Output 05/03/18 05/04/18 05/04/18 18:59 06:59 18:59 Output Total 200 1630 Balance -200 -1630 Weight 77.111 kg Output: Urine 200 1630 Other: Voiding Method Ileal Conduit (Right) Ileal Conduit (Right) # Voids 0 - Exam General appearance: average body habitus, mild distress - EENT Eyes: anicteric sclerae, EOMI, PERRLA, no ptosis, no scleral icterus, normal appearance ENT: hearing grossly normal, NA/AT, normal oropharynx, no thrush Ears: bilateral: normal - Neck Neck: no lymphadenopathy, normal ROM, no rigidity, no stridor, no thyromegaly Carotids: bilateral: upstroke delayed Thyroid: bilateral: normal size - Respiratory Respiratory: bilateral: diminished, prolonged expiration, negative: dullness, rales, rhonchi, wheezing - Cardiovascular Rhythm: regular Heart sounds: normal: S1, S2 Abnormal Heart Sounds: systolic murmur, no S3 Gallop - Gastrointestinal General gastrointestinal: normal bowel sounds, soft, no splenomegaly, no tenderness, no umbilical hernia, ventral hernia (there is urostomy with hernia.) - Integumentary Integumentary: normal, normal turgor - Neurologic Neurologic: CNII-XII intact - Musculoskeletal Musculoskeletal: generalized weakness, strength equal bilaterally - Psychiatric Psychiatric: A&O x's 3, appropriate affect, intact judgment & insight - Labs CBC & Chem 7: 05/04/18 09:30 05/04/18 09:30 Labs: Abnormal Lab Results - Last 24 Hours (Table) 05/03/18 05/03/18 05/04/18 Range/Units 07:36 20:50 07:05 POC Glucose (mg/dL) 225 H 258 H (75-99) mg/dL Hemoglobin A1c 7.3 H (4.0-6.0) % Microbiology - Last 24 Hours (Table) 05/03/18 07:52 Blood Culture Gram Stain - Preliminary Blood Blood Culture - Preliminary Gram Neg Bacilli 05/03/18 07:52 Blood Culture - Final Blood 05/03/18 07:50 Urine Culture - Preliminary Urine,Suprapubic 05/03/18 07:30 Urine Culture - Preliminary Urine,Suprapubic Assessment and Plan Plan: 1. Acute urostomy associated UTI with sepsis and gram-negative bacteremia. Continue IV fluid normal saline 75 mL an hour, continue IV antibiotic in the form of Rocephin 1 g IV piggyback every 24 hours, urine culture, blood culture 2, repeat his labs in next 24 hours, ID consult appreciated. 2. 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 Continue IV fluid resuscitation in the form of normal saline at 75 mL an hour repeat CMP tomorrow morning. Renal ultrasound as above. 3. Diarrhea. Check stool for Clostridium difficile toxin a and B. 4. CAD post PCI of the LAD and OM1. Continue aspirin 81 mg once every day, Plavix 75 mg orally once every day, metoprolol 12.5 mg orally twice every day, Lipitor 40 mg orally once every day, continue patient also on nitroglycerin as needed. 5. Hypertension and hypertensive cardiovascular disease. Continue patient on metoprolol 12.5 mg orally twice every day and losartan 50 mg orally once every day. 6. Hyperlipidemia. Continue Lipitor 40 mg orally once every day. 7. COPD. Currently the patient on Advair Diskus 250/50 one puff inhalation twice every day, oxygen as needed. 8. Osteoarthritis. Stable at this time. 9. GI prophylaxis. Continue patient on PPI. 10. DVT prophylaxis. Lovenox 30 mg subcutaneously once every day. 11. CODE STATUS: Full code as discussed with patient and his and daughter at the bedside. Discharge plan: To be determined, most likely return home. PT and OT added. Impression and plan of care have been directed as dictated by the signing physician. Melvina Solorzano nurse practitioner acting as scribe for signing physician.
[2018-05-04 16:55] LABS: Glucose,Whole Blood 278 mg/dL (75-99)
[2018-05-04 21:40] LABS: Glucose,Whole Blood 347 mg/dL (75-99)
--- NOTE | 2018-05-04 22:16 | PN ---
PROGRESS NOTE DATE OF SERVICE: 05/04/2018 REASON FOR FOLLOWUP: Urinary tract infection and bacteremia. INTERVAL HISTORY: The patient is currently afebrile. He is breathing comfortably. No further rigors or chills. Denies having any chest pain or shortness of breath or cough. No abdominal pain. No nausea or vomiting. No diarrhea. PHYSICAL EXAMINATION: Blood pressure 134/68 with a pulse of 62, temperature 97.8. He is 95% on room air. General description is an elderly male up in the bed in no distress. RESPIRATORY SYSTEM: Unlabored breathing. Clear to auscultation anteriorly. HEART: S1, S2. Regular rate and rhythm. ABDOMEN: Soft. No tenderness. EXTREMITIES: No edema of the feet. LABS: Hemoglobin is 10.6, white count 13.6, BUN of 37, creatinine 1.96. Blood and urine cultures with gram-negative bacilli. DIAGNOSTIC IMPRESSION AND PLAN: Patient with gram-negative bacteremia secondary to urinary source. Ultrasound shows mild hydronephrosis but no other The patient at this time is to continue with Rocephin, to which he seems to have responded clinically, while waiting for the culture to finalize. Continue supportive care. MMODL / IJN: [id number] /
[2018-05-05] MEDS: IPRATROPIUM-ALBUTEROL 3 ML NEB INHALATION SCH ×4 (01:29→19:47)
[2018-05-05] MEDS: LEVOTHYROXINE 25 MCG TAB PO SCH (06:29)
[2018-05-05] MEDS: SYMBICORT 160-4.5 MCG INHALER INHALATION SCH ×2 (07:11→19:47)
[2018-05-05 07:30] LABS: Glucose,Whole Blood 282 mg/dL (75-99)
[2018-05-05] MEDS ORDERED: INSULIN ASPART 100 UNIT/ML 1 ML 10 ML VIAL SQ ONE ×2 (07:59→13:18)
[2018-05-05] MEDS: METOPROLOL TARTRATE 12.5 MG TAB PO SCH ×2 (09:25→20:51)
[2018-05-05] MEDS: methylPREDNISolone SOD SUCCI 40 MG/ML 1 ML VIAL IV SCH (09:26)
[2018-05-05] MEDS: ATORVASTATIN 40 MG TAB PO SCH (09:26)
[2018-05-05] MEDS: LOSARTAN 50 MG TAB PO SCH (09:26)
[2018-05-05] MEDS: PANTOPRAZOLE 40 MG/10 ML VIAL IVP SCH (09:26)
[2018-05-05] MEDS: cefTRIAXone 2,000 MG in SODIUM CHLORIDE 0.9% 100 ML IVPB SCH (09:26)
[2018-05-05] MEDS: CLOPIDOGREL 75 MG TAB PO SCH (09:26)
[2018-05-05] MEDS: ASPIRIN 81 MG PO SCH (09:26)
[2018-05-05] MEDS: ENOXAPARIN 30 MG/0.3 ML SYRINGE SQ SCH (09:26)
[2018-05-05] MEDS: INSULIN ASPART 100 UNIT/ML 1 ML 10 ML VIAL SQ SCH ×4 (09:27→20:50)
[2018-05-05 09:42] LABS: HCT 33.4 % (39.0-53.0); HGB 10.3 gm/dL (13.0-17.5); Hypochromasia Marked; MCHC 30.7 g/dL (31.0-37.0); MCV 87.9 fL (80.0-100.0); Mean Platelet Volume 6.7; Platelet Count 212 k/uL (150-450); RDW 14.8 % (11.5-15.5); WBC 17.5 k/uL (3.8-10.6)
[2018-05-05 09:50] LABS: Calcium 8.1 mg/dL (8.4-10.2); Potassium 4.6 mmol/L (3.5-5.1)
--- NOTE | 2018-05-05 10:34 | P.GSCN ---
History of Present Illness Consult date: 05/05/18 History of present illness: The patient is an 87-year-old gentleman with a history of bladder cancer dating to 2008 where he had a radical cystectomy at the [facility] he has an ileal loop urinary diversion. He has had no significant problems other than a parastomal hernia. He has elected not to fix this. He sees on an annual basis for this bladder cancer. He presented to the hospital with chills and malaise. He had an elevated white count. An apparent urinary infection is feeling better on antibiotics. Dr. Arreguin was asked to see the patient for bladder cancer, he had a renal ultrasound that showed mild hydronephrosis which is chronic. Review of Systems - Constitutional Reports chronic headaches - Respiratory Reports dyspnea - Genitourinary Reports as per HPI Past Medical History Past Medical History: Coronary Artery Disease (CAD), Cancer, COPD, Hyperlipidemia, Hypertension, Myocardial Infarction (ID), Osteoarthritis (OA), Thyroid Disorder Additional Past Medical History / Comment(s): Bladder cancer post urostomy, CAD post PCI of LAD and OM1, hypertension and hypertensive cardiovascular disease, hyperlipidemia, osteoarthritis, history of pancreatitis, history of carotid artery disease status post bilateral carotid endarterectomies, history of C. diff colitis. Last Myocardial Infarction Date:: 02-21-18 History of Any Multi-Drug Resistant Organisms: C-DIFF Year Discovered:: c-diff 2007 MDRO Source:: stool Past Surgical History: Appendectomy, Heart Catheterization With Stent, Hernia Repair Additional Past Surgical History / Comment(s): bladder removal, urostomy, carotid endarterectomy bilaterally, cateract surgery, left heart catheterization with PCI of the first obtuse marginal and LAD, incisional hernia surgery. Past Anesthesia/Blood Transfusion Reactions: No Reported Reaction Date of Last Stent Placement:: Smoking Status: Former smoker - Past Family History Father Family Medical History: Cancer Mother Family Medical History: CVA/TIA, Diabetes Mellitus Brother(s) Family Medical History: Coronary Artery Disease (CAD) Sister(s) Family Medical History: No Reported History Daughter(s) Family Medical History: No Reported History Son(s) Family Medical History: No Reported History Medications and Allergies Home Medications Medication Instructions Recorded Confirmed Type Aspirin 81 mg PO DAILY 02/21/18 05/03/18 History Cetirizine HCl [Zyrtec] 10 mg PO DAILY 02/21/18 05/03/18 History Fluticasone/Salmeterol [Advair 1 puff INHALATION RT-BID 02/21/18 05/03/18 History 500-50 Diskus] Ipratropium/Albuterol Sulfate 1 puff INHALATION RT-QID 02/21/18 05/03/18 History [Combivent Respimat Inhaler] Levothyroxine Sodium 25 mcg PO DAILY 02/21/18 05/03/18 History Atorvastatin [Lipitor] 40 mg PO DAILY #30 tab 02/23/18 05/03/18 Rx Clopidogrel [Plavix] 75 mg PO DAILY #30 tab 02/23/18 05/03/18 Rx Losartan [Cozaar] 50 mg PO DAILY #30 tab 02/23/18 05/03/18 Rx Nitroglycerin Sl Tabs [Nitrostat] 0.4 mg SUBLINGUAL Q5M PRN #25 tab 02/23/18 Rx Metoprolol Tartrate [Lopressor] 12.5 mg PO BID 05/03/18 05/03/18 History predniSONE 5 mg PO DAILY 05/03/18 05/03/18 History Allergies Allergy/AdvReac Type Severity Reaction Status Date / Time No Known Allergies Allergy Verified 05/03/18 08:04 Surgical - Exam Vital Signs Temp Pulse Resp BP Pulse Ox 102.6 F H 95 18 156/121 92 L 05/03/18 07:21 05/03/18 07:21 05/03/18 07:21 05/03/18 07:21 05/03/18 07:21 - General well developed, well nourished, no distress - Eyes PERRL - ENT no hearing loss - Neck trachea midline - Respiratory normal expansion, normal respiratory effort - Cardiovascular Rhythm: regular - Abdomen Right lower quadrant ileal loop, large parastomal hernia Abdomen: soft, non tender - Genitourinary normal penis with no external lesions, testicles present - Neurologic normal coordination, normal sensation - Musculoskeletal normal posture - Psychiatric oriented to time, oriented to person, oriented to place, speech is normal, memory intact Results - Labs 05/05/18 09:12 05/05/18 09:12 Abnormal Lab Results - Last 24 Hours (Table) 09/05/04/18 05/04/18 Range/Units 12:24 16:45 21:33 WBC (3.8-10.6) k/uL RBC (4.30-5.90) m/uL Hgb (13.0-17.5) gm/dL Hct (39.0-53.0) % MCHC (31.0-37.0) g/dL Chloride (98-107) mmol/L Carbon Dioxide (22-30) mmol/L BUN (9-20) mg/dL Creatinine (0.66-1.25) mg/dL Glucose (74-99) mg/dL POC Glucose (mg/dL) 283 H 278 H 347 H (75-99) mg/dL Calcium (8.4-10.2) mg/dL 05/05/18 05/05/18 05/05/18 Range/Units 07:28 09:12 09:12 WBC 17.5 H (3.8-10.6) k/uL RBC 3.80 L (4.30-5.90) m/uL Hgb 10.3 L (13.0-17.5) gm/dL Hct 33.4 L (39.0-53.0) % MCHC 30.7 L (31.0-37.0) g/dL Chloride 112 H (98-107) mmol/L Carbon Dioxide 15 L (22-30) mmol/L BUN 44 H (9-20) mg/dL Creatinine 2.04 H (0.66-1.25) mg/dL Glucose 315 H (74-99) mg/dL POC Glucose (mg/dL) 282 H (75-99) mg/dL Calcium 8.1 L (8.4-10.2) mg/dL Microbiology - Last 24 Hours (Table) 05/03/18 07:52 Blood Culture Gram Stain - Final Blood Blood Culture - Final Klebsiella pneumoniae 05/03/18 07:50 Urine Culture - Preliminary Urine,Suprapubic Gram Neg Bacilli 05/03/18 07:30 Urine Culture - Preliminary Urine,Suprapubic Gram Neg Bacilli Diabetes panel 05/05/18 Range/Units 09:12 Sodium 140 (137-145) mmol/L Potassium 4.6 (3.5-5.1) mmol/L Chloride 112 H (98-107) mmol/L Carbon Dioxide 15 L (22-30) mmol/L BUN 44 H (9-20) mg/dL Creatinine 2.04 H (0.66-1.25) mg/dL Glucose 315 H (74-99) mg/dL Calcium 8.1 L (8.4-10.2) mg/dL Calcium panel 05/05/18 Range/Units 09:12 Calcium 8.1 L (8.4-10.2) mg/dL Pituitary panel 05/05/18 Range/Units 09:12 Sodium 140 (137-145) mmol/L Potassium 4.6 (3.5-5.1) mmol/L Chloride 112 H (98-107) mmol/L Carbon Dioxide 15 L (22-30) mmol/L BUN 44 H (9-20) mg/dL Creatinine 2.04 H (0.66-1.25) mg/dL Glucose 315 H (74-99) mg/dL Calcium 8.1 L (8.4-10.2) mg/dL Adrenal panel 05/05/18 Range/Units 09:12 Sodium 140 (137-145) mmol/L Potassium 4.6 (3.5-5.1) mmol/L Chloride 112 H (98-107) mmol/L Carbon Dioxide 15 L (22-30) mmol/L BUN 44 H (9-20) mg/dL Creatinine 2.04 H (0.66-1.25) mg/dL Glucose 315 H (74-99) mg/dL Calcium 8.1 L (8.4-10.2) mg/dL - Imaging US - abdomen: report reviewed, image reviewed Assessment and Plan Assessment: Impression: Acute urinary tract infection. History of bladder cancer status post cystectomy. Parastomal hernia. Mild hydronephrosis chronic. Medical illnesses. Recommendations: At this point in time nothing urologic needs to be done. He should keep his follow-up to see Dr. Arreguin for his annual examination for his bladder cancer.
--- NOTE | 2018-05-05 12:26 | P.PN ---
Subjective Progress Note Date: 05/05/18 This is an 87-year-old male one of Dr. Bhavesh Dickinson with a previous medical history significant for hypertension and hypertensive cardiovascular disease with left ventricular hypertrophy, CAD post PCI of the first obtuse marginal and LAD with 2 drug-eluting stent placement, hyperlipidemia, bladder cancer status post urostomy, history of COPD, patient stated that he was in his usual state of health about Thursday when he developed to have a significant abdominal pain associated with nausea and one episode of vomiting and significant diarrhea after he had a burger [place] on Thursday night he spent most of the day at home yesterday he ended up coming to the ER today with a temperature of 102 his urostomy bag appear to be clear however his urine was positive for elevated WBC with positive nitrite and positive leukocyte esterase patient was started on IV antibiotic after sending the urine for culture and blood culture and he was admitted to the hospital for evaluation ID consultation was obtained from Dr. Weiner. 05/04: Patient is followed by Dr. Weiner and continued on Rocephin 2 g daily. Renal ultrasound reveals mild bilateral hydronephrosis with lobulated margins greater on the left. No nephrolithiasis. Simple-appearing lower pole right renal cyst measuring 2.5 cm. Could not exclude a solid lesion along the mid pole left kidney. Consult with Dr. Arreguin added. Patient has been afebrile since admission. Pulse ox 96% on room air. Consultative for PT and OT. C. diff toxin specimen has not been obtained. Hemoglobin A1c is 7.3. Sugars are elevated patient is on Solu-Medrol 40 mg IV every 8 hours. BUN 37 creatinine 1.96. Blood culture is positive for gram-negative bacilli as well as urine culture. 05/05: Patient has been seen by Dr. Landrum reveals patient has no urology needs and he can follow-up with Dr. nelson for his annual examination regarding bladder cancer. The hydronephrosis on ultrasound is chronic. His blood sugars have been high and Solu-Medrol will be switched over to oral prednisone. Blood culture is positive for Klebsiella susceptible to Rocephin and repeat blood culture will be ordered. Anticipate possible discharge by tomorrow. Patient has been evaluated by physical therapy with recommendations for home. Objective - Vital Signs Vital signs: Vital Signs Temp 97.7 F 05/05/18 06:00 Pulse 60 05/05/18 07:25 Resp 20 05/05/18 06:00 BP 150/85 05/05/18 06:00 Pulse Ox 95 05/05/18 06:00 Intake & Output 05/04/18 05/05/18 05/05/18 18:59 06:59 18:59 Intake Total 200 Output Total 400 700 Balance -400 -500 Intake: Oral 200 Output: Urine 400 700 Other: Voiding Method Ileal Conduit (Right) # Voids 1 # Bowel Movements 1 - Exam General appearance: average body habitus, mild distress - EENT Eyes: anicteric sclerae, EOMI, PERRLA, no ptosis, no scleral icterus, normal appearance ENT: hearing grossly normal, NA/AT, normal oropharynx, no thrush Ears: bilateral: normal - Neck Neck: no lymphadenopathy, normal ROM, no rigidity, no stridor, no thyromegaly Carotids: bilateral: upstroke delayed Thyroid: bilateral: normal size - Respiratory Respiratory: bilateral: diminished, prolonged expiration, negative: dullness, rales, rhonchi, wheezing - Cardiovascular Rhythm: regular Heart sounds: normal: S1, S2 Abnormal Heart Sounds: systolic murmur, no S3 Gallop - Gastrointestinal General gastrointestinal: normal bowel sounds, soft, no splenomegaly, no tenderness, no umbilical hernia, ventral hernia (there is urostomy with hernia.) - Integumentary Integumentary: normal, normal turgor - Neurologic Neurologic: CNII-XII intact - Musculoskeletal Musculoskeletal: generalized weakness, strength equal bilaterally - Psychiatric Psychiatric: A&O x's 3, appropriate affect, intact judgment & insight - Labs CBC & Chem 7: 05/05/18 09:12 05/05/18 09:12 Labs: Abnormal Lab Results - Last 24 Hours (Table) 05/04/18 05/04/18 05/04/18 Range/Units 12:24 16:45 21:33 WBC (3.8-10.6) k/uL RBC (4.30-5.90) m/uL Hgb (13.0-17.5) gm/dL Hct (39.0-53.0) % MCHC (31.0-37.0) g/dL Chloride (98-107) mmol/L Carbon Dioxide (22-30) mmol/L BUN (9-20) mg/dL Creatinine (0.66-1.25) mg/dL Glucose (74-99) mg/dL POC Glucose (mg/dL) 283 H 278 H 347 H (75-99) mg/dL Calcium (8.4-10.2) mg/dL 05/05/18 05/05/18 05/05/18 Range/Units 07:28 09:12 09:12 WBC 17.5 H (3.8-10.6) k/uL RBC 3.80 L (4.30-5.90) m/uL Hgb 10.3 L (13.0-17.5) gm/dL Hct 33.4 L (39.0-53.0) % MCHC 30.7 L (31.0-37.0) g/dL Chloride 112 H (98-107) mmol/L Carbon Dioxide 15 L (22-30) mmol/L BUN 44 H (9-20) mg/dL Creatinine 2.04 H (0.66-1.25) mg/dL Glucose 315 H (74-99) mg/dL POC Glucose (mg/dL) 282 H (75-99) mg/dL Calcium 8.1 L (8.4-10.2) mg/dL Microbiology - Last 24 Hours (Table) 05/03/18 07:52 Blood Culture Gram Stain - Final Blood Blood Culture - Final Klebsiella pneumoniae 05/03/18 07:50 Urine Culture - Preliminary Urine,Suprapubic Gram Neg Bacilli 05/03/18 07:30 Urine Culture - Preliminary Urine,Suprapubic Gram Neg Bacilli Assessment and Plan Plan: 1. Acute urostomy associated Klebsiella UTI with sepsis and Klebsiella bacteremia. Discontinue IV fluids, continue IV antibiotic in the form of Rocephin 1 g IV piggyback every 24 hours, urine culture, blood culture 2, repeat his labs in next 24 hours, ID consult appreciated. 2. 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 It is post IV fluid resuscitation. Renal ultrasound as above. 3. Diarrhea. Check stool for Clostridium difficile toxin a and B. 4. CAD post PCI of the LAD and OM1. Continue aspirin 81 mg once every day, Plavix 75 mg orally once every day, metoprolol 12.5 mg orally twice every day, Lipitor 40 mg orally once every day, continue patient also on nitroglycerin as needed. 5. Hypertension and hypertensive cardiovascular disease. Continue patient on metoprolol 12.5 mg orally twice every day and losartan 50 mg orally once every day. 6. Hyperlipidemia. Continue Lipitor 40 mg orally once every day. 7. COPD. Currently the patient on Advair Diskus 250/50 one puff inhalation twice every day, oxygen as needed. 8. Osteoarthritis. Stable at this time. 9. GI prophylaxis. Continue patient on PPI. 10. DVT prophylaxis. Lovenox 30 mg subcutaneously once every day. 11. CODE STATUS: Full code as discussed with patient and his and daughter at the bedside. Discharge plan: Home. Impression and plan of care have been directed as dictated by the signing physician. Melvina Solorzano nurse practitioner acting as scribe for signing physician.
[2018-05-05 12:34] LABS: Glucose,Whole Blood 339 mg/dL (75-99)
[2018-05-05] MEDS ORDERED: INSULIN DETEMIR 100 UNIT/ML 10 ML VIAL SQ ONE (13:19)
[2018-05-05 17:25] LABS: Glucose,Whole Blood 141 mg/dL (75-99)
[2018-05-05 20:36] LABS: Glucose,Whole Blood 231 mg/dL (75-99)
--- NOTE | 2018-05-05 23:11 | PN ---
PROGRESS NOTE DATE OF SERVICE: 05/05/2018. REASON FOR FOLLOWUP VISIT: Urinary tract infection with bacteremia. INTERVAL HISTORY: The patient is afebrile. He is breathing comfortably. No further rigors and he denies any chest pain or shortness of breath or cough. Abdominal pain has improved. No nausea, vomiting and no diarrhea. EXAMINATION: Blood pressure 142/65 with a pulse of 60, temperature 96.9. He is 96% on room air. General description is an elderly male lying in bed in no distress. RESPIRATORY SYSTEM: Unlabored breathing. Clear to auscultation anteriorly. HEART: S1, S2. Regular rate and rhythm. ABDOMEN: Soft, no tenderness. No guarding or rigidity. EXTREMITIES: No edema of feet. LABS: Hemoglobin is 10, white count 17.5. BUN 44, creatinine 2.04. Urine did show Klebsiella pneumoniae that is sensitive pathogen. DIAGNOSTIC IMPRESSION AND PLAN: Patient with Klebsiella pneumoniae bacteremia secondary to the urinary source, sensitive pathogen. The patient is currently on Rocephin. Blood culture repeat will be ordered to document clearance of his bacteremia. Ultrasound shows mild hydronephrosis for which the patient has been seen by Urology. No further workup has been ordered. We will wait for his white count to normalize before placing the patient on oral antibiotic, more likely Cipro with a close outpatient followup. MMODL / IJN: [id number] /
[2018-05-06] MEDS: IPRATROPIUM-ALBUTEROL 3 ML NEB INHALATION SCH ×2 (04:06→09:09)
[2018-05-06] MEDS: LEVOTHYROXINE 25 MCG TAB PO SCH (06:37)
[2018-05-06 07:59] VITALS: RESP 20; TEMP 96.7
[2018-05-06 08:04] LABS: Glucose,Whole Blood 158 mg/dL (75-99)
[2018-05-06] MEDS: METOPROLOL TARTRATE 12.5 MG TAB PO SCH (08:10)
[2018-05-06] MEDS: ENOXAPARIN 30 MG/0.3 ML SYRINGE SQ SCH (08:10)
[2018-05-06] MEDS: INSULIN ASPART 100 UNIT/ML 1 ML 10 ML VIAL SQ SCH (08:10)
[2018-05-06] MEDS: LOSARTAN 50 MG TAB PO SCH (08:11)
[2018-05-06] MEDS: PANTOPRAZOLE 40 MG/10 ML VIAL IVP SCH (08:11)
[2018-05-06] MEDS: CLOPIDOGREL 75 MG TAB PO SCH (08:11)
[2018-05-06] MEDS: ATORVASTATIN 40 MG TAB PO SCH (08:11)
[2018-05-06] MEDS ORDERED: predniSONE 20 MG TAB PO SCH (09:00)
[2018-05-06] MEDS: cefTRIAXone 2,000 MG in SODIUM CHLORIDE 0.9% 100 ML IVPB SCH (09:05)
[2018-05-06] MEDS: SYMBICORT 160-4.5 MCG INHALER INHALATION SCH (09:09)
[2018-05-06] MEDS: ASPIRIN 81 MG PO SCH (09:12)
[2018-05-06 09:13] VITALS: BP 170/72
[2018-05-06 09:23] VITALS: PULSE 68
--- NOTE | 2018-05-06 13:08 | P.DS ---
Providers Date of admission: 05/03/18 09:52 Expected date of discharge: 05/06/18 Attending physician: Lizzie Tatum Consults: 05/03/18 09:52 Consult Physician Urgent Consulting Provider: Rona Weiner Consult Reason/Comments: Urinary tract infection Do you want consulting provider notified?: Yes 05/04/18 11:20 Consult Physician Routine Consulting Provider: Jaime Arreguin Consult Reason/Comments: bladder ca/urostomy, abn US Do you want consulting provider notified?: Yes Primary care physician: Alok Ospina [facility] Course: This is an 87-year-old male one of Dr. Bhavehs Dickinson with a previous medical history significant for hypertension and hypertensive cardiovascular disease with left ventricular hypertrophy, CAD post PCI of the first obtuse marginal and LAD with 2 drug-eluting stent placement, hyperlipidemia, bladder cancer status post urostomy, history of COPD, patient stated that he was in his usual state of health about Thursday when he developed to have a significant abdominal pain associated with nausea and one episode of vomiting and significant diarrhea after he had a burger [place] on Thursday night he spent most of the day at home yesterday he ended up coming to the ER today with a temperature of 102 his urostomy bag appear to be clear however his urine was positive for elevated WBC with positive nitrite and positive leukocyte esterase patient was started on IV antibiotic after sending the urine for culture and blood culture and he was admitted to the hospital for evaluation ID consultation was obtained from Dr. Weiner. 05/04: Patient is followed by Dr. Weiner and continued on Rocephin 2 g daily. Renal ultrasound reveals mild bilateral hydronephrosis with lobulated margins greater on the left. No nephrolithiasis. Simple-appearing lower pole right renal cyst measuring 2.5 cm. Could not exclude a solid lesion along the mid pole left kidney. Consult with Dr. Arreguin added. Patient has been afebrile since admission. Pulse ox 96% on room air. Consultative for PT and OT. C. diff toxin specimen has not been obtained. Hemoglobin A1c is 7.3. Sugars are elevated patient is on Solu-Medrol 40 mg IV every 8 hours. BUN 37 creatinine 1.96. Blood culture is positive for gram-negative bacilli as well as urine culture. 05/05: Patient has been seen by Dr. Landrum reveals patient has no urology needs and he can follow-up with Dr. nelson for his annual examination regarding bladder cancer. The hydronephrosis on ultrasound is chronic. His blood sugars have been high and Solu-Medrol will be switched over to oral prednisone. Blood culture is positive for Klebsiella susceptible to Rocephin and repeat blood culture will be ordered. Anticipate possible discharge by tomorrow. Patient has been evaluated by physical therapy with recommendations for home. 05/06: Repeat blood culture is status received. Dr. Weiner has recommended Cipro. Patient will be discharged home today on oral Cipro and dose adjusted for renal failure. Discharge diagnoses: 1. Acute urostomy associated Klebsiella UTI with sepsis and Klebsiella bacteremia. 2. 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 3. Diarrhea. 4. CAD post PCI of the LAD and OM1. 5. Hypertension and hypertensive cardiovascular disease. 6. Hyperlipidemia. 7. COPD. 8. Osteoarthritis. Discharge plan: Home. Impression and plan of care have been directed as dictated by the signing physician. Melvina Solorzano nurse practitioner acting as scribe for signing physician. Patient Condition at Discharge: Good Plan - Discharge Summary Discharge Rx Participant: No New Discharge Prescriptions: New Ciprofloxacin HCl [Cipro] 500 mg PO DAILY #14 tablet No Action Ipratropium/Albuterol Sulfate [Combivent Respimat Inhaler] 1 puff INHALATION RT-QID Fluticasone/Salmeterol [Advair 500-50 Diskus] 1 puff INHALATION RT-BID Aspirin 81 mg PO DAILY Levothyroxine Sodium 25 mcg PO DAILY Cetirizine HCl [Zyrtec] 10 mg PO DAILY Atorvastatin [Lipitor] 40 mg PO DAILY #30 tab Clopidogrel [Plavix] 75 mg PO DAILY #30 tab Losartan [Cozaar] 50 mg PO DAILY #30 tab Nitroglycerin Sl Tabs [Nitrostat] 0.4 mg SUBLINGUAL Q5M PRN #25 tab PRN Reason: Chest Pain predniSONE 5 mg PO DAILY Metoprolol Tartrate [Lopressor] 12.5 mg PO BID Discharge Medication List Aspirin 81 mg PO DAILY 02/21/18 [History] Cetirizine HCl [Zyrtec] 10 mg PO DAILY 02/21/18 [History] Fluticasone/Salmeterol [Advair 500-50 Diskus] 1 puff INHALATION RT-BID 02/21/18 [History] Ipratropium/Albuterol Sulfate [Combivent Respimat Inhaler] 1 puff INHALATION RT- QID 02/21/18 [History] Levothyroxine Sodium 25 mcg PO DAILY 02/21/18 [History] Atorvastatin [Lipitor] 40 mg PO DAILY #30 tab 02/23/18 [Rx] Clopidogrel [Plavix] 75 mg PO DAILY #30 tab 02/23/18 [Rx] Losartan [Cozaar] 50 mg PO DAILY #30 tab 02/23/18 [Rx] Nitroglycerin Sl Tabs [Nitrostat] 0.4 mg SUBLINGUAL Q5M PRN #25 tab 02/23/18 [Rx ] Metoprolol Tartrate [Lopressor] 12.5 mg PO BID 05/03/18 [History] predniSONE 5 mg PO DAILY 05/03/18 [History] Ciprofloxacin HCl [Cipro] 500 mg PO DAILY #14 tablet 05/06/18 [Rx] Follow up Appointment(s)/Referral(s): Rona Weiner MD [STAFF PHYSICIAN] - 05/13/18 11:15 am Alok Ospina MD [Primary Care Provider] - 05/13/18 3:00 pm Ambulatory/Diagnostic Orders: Basic Metabolic Panel [LAB.AMB] Location: None Selected Complete Blood Count w/diff [LAB.AMB] Location: None Selected Patient Instructions/Handouts: Urinary Tract Infection in Men (DC), Fall Prevention for Older Adults (DC) Activity/Diet/Wound Care/Special Instructions: Cardiac diet. Activity as tolerated, Fall precautions Discharge Disposition: HOME WITH HOME HEALTH SERVICES
--- NOTE | 2018-05-11 07:53 | CDI ---
Last Revision, July 2017 Documentation Clarification Form Date: 05/11/18 From: Arlen Wing Pat Kang, Chemical Lab Technician Hours-8:30 am & 5 pm Danis Admit Date: 05/03/2018 9:52:00 AM Patient Name: Dhaval Vigil Visit Number: [id number] Discharge Date: 05/06/18 ATTENTION: The Clinical Documentation Specialists (CDI) and [facility] Coding Staff appreciate your assistance in clarifying documentation. Please respond to the clarification below the line at the bottom and electronically sign. The CDI & [facility] Coding staff will review the response and follow-up if needed. Please note: Queries are made part of the Legal Health Record. If you have any questions, please contact the author of this message via ITS. Lizzie Rehman MD A diagnosis of UTI w sepsis has been documented in the discharge summary. History/Risk factors: bladder ca w urostomy, Hx UTI's, HTN heart & kidney disease w Stage 3 CKD, ARF Urinalysis: large leukocyte esterase, WBC >182, bacteria moderate, nitrate positive Urine culture: Klebsiella pneumoniae & Enterococcus faecalis Blood culture: Klebsiella pneumoniae Treatment: IV Rocephin In your professional opinion, can you please clarify the etiology of the UTI, if known? Urostomy infection from catheter Urostomy infection without catheter UTI not related to urostomy Other condition, please specify Unable to determine Please continue to document in your progress notes and discharge summary in order to capture severity of illness and risk of mortality. Include clinical findings that support your diagnosis. MTDD
== END 2018-05-06 11:40 | disposition home or self-care (01) | DRG 872 ==
LOC: EC 07:19 → 4MS4W 09:52
PROVIDERS: ADMIT Internal Medicine; ATTEND Internal Medicine
DX: A41.59 Other Gram-negative sepsis (principal); N17.9 Acute kidney failure, unspecified; N13.6 Pyonephrosis; N99.521 Infection of incontinent external stoma of urinary tract; J44.9 Chronic obstructive pulmonary disease, unspecified; N28.1 Cyst of kidney, acquired; I13.10 Hypertensive heart and chronic kidney disease without heart failure, with stage 1 through stage 4 chronic kidney disease, or unspecified chronic kidney disease; N18.3 Chronic kidney disease, stage 3 (moderate); E07.9 Disorder of thyroid, unspecified; I25.10 Atherosclerotic heart disease of native coronary artery without angina pectoris; E78.5 Hyperlipidemia, unspecified; K43.5 Parastomal hernia without obstruction or gangrene; M19.91 Primary osteoarthritis, unspecified site; R19.7 Diarrhea, unspecified; I25.2 Old myocardial infarction; Z93.6 Other artificial openings of urinary tract status; Z79.02 Long term (current) use of antithrombotics/antiplatelets; Z79.82 Long term (current) use of aspirin; Z79.890 Hormone replacement therapy; Z79.51 Long term (current) use of inhaled steroids; Z79.52 Long term (current) use of systemic steroids; Z79.899 Other long term (current) drug therapy; Z90.6 Acquired absence of other parts of urinary tract; Z86.79 Personal history of other diseases of the circulatory system; Z86.19 Personal history of other infectious and parasitic diseases; Z85.51 Personal history of malignant neoplasm of bladder; Z87.440 Personal history of urinary (tract) infections; Z90.49 Acquired absence of other specified parts of digestive tract; Z95.5 Presence of coronary angioplasty implant and graft; Z87.19 Personal history of other diseases of the digestive system; Z98.49 Cataract extraction status, unspecified eye; Z87.891 Personal history of nicotine dependence; Z83.3 Family history of diabetes mellitus; Z82.3 Family history of stroke; Z80.8 Family history of malignant neoplasm of other organs or systems; Z82.49 Family history of ischemic heart disease and other diseases of the circulatory system
CPT/HCPCS: 36415; 71046; 76770; 80048; 80053; 81001; 83036; 83605; 85025; 85027; 85610; 85730; 87040; 87077; 87086; 87186; 93005; 94640; 94760; 96361; 96365; 99285

== ENCOUNTER → 2018-07-29 | Outpatient (CLI) | payer MEDICARE, BC ==
--- NOTE | 2018-07-29 13:20 | CT ---
EXAMINATION TYPE: CT abdomen pelvis wo con DATE OF EXAM: 07/29/2018 COMPARISON: There are no prior CT examinations at this location. Comparison is made with a presurgica l 05/04/2018 retroperitoneal ultrasound. INDICATION: Follow up scan, bladder cancer DLP: 432.6 mGycm, Automated exposure control for dose reduction was used. CONTRAST: 0 mL of Isovue 300. Study performed without Oral Contrast TECHNIQUE: Axial images were obtained from above the diaphragm to the pubic rami in the axial plane a t 5 mm thick sections. Reconstructed images are reviewed on the computer in the coronal plane. FINDINGS: Limited CT sections are obtained the lung bases. There is a 0.3 cm density in the posterior lateral peripheral right lower lobe. Series 4 image 3.. There is a pleural-based thickening measuring 1.7 cm in the posterior left lung base. Series 4 image 8. Follow-up of these findings is recommended. Coron brianna artery calcification is present. Small hiatal hernia may be present. CT ABDOMEN: There is a anterior right lower lobe hernia adjacent to what appears to be a urostomy sit e. Loops of colon are present without obstruction. Liver: Normal Spleen: Normal Pancreas: Normal Adrenal glands: The adrenal glands are normal. Gallbladder: Normal Kidneys: No masses are evident. No hydronephrosis is present. No cysts are present. No hydroureter is evident. Aorta: Vascular calcification is within the aorta. There is some mild fusiform prominence of the mid abdominal aorta with an AP diameter of 3.2 cm. Inferior vena cava: Normal. CT PELVIS: Postsurgical changes are in the right lower quadrant. 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 Study is performed without oral contrast limiting bowel evaluation. Multiple diverticu li are within the sigmoid colon. Appendix: Not visualized. Urinary bladder: Patient is status post cystectomy. Surgical clips are within the pelvis. Genitourinary structures: Prostate is not identified. Osseous structures: No suspicious lytic or sclerotic lesions. Sacroiliac joint degenerative changes a re present. Some facet hypertrophy is present L5-S1. IMPRESSIONS: 1. 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 2. No significant hydronephrosis or hydroureter is appreciated. 3. Posterior left lung base mass and a small nodule in the posterior lateral right lung base. Conside r CT chest for complete evaluation. Metastatic disease is not excluded.
== END | disposition home or self-care (01) ==
LOC: RADCTMAIN 12:41
PROVIDERS: ATTEND Urology
DX: K45.8 Other specified abdominal hernia without obstruction or gangrene (principal); D49.4 Neoplasm of unspecified behavior of bladder; Z93.6 Other artificial openings of urinary tract status
CPT/HCPCS: 74176

== ENCOUNTER 2019-03-18 00:56 | Inpatient (IN) | payer MEDICARE, BC ==
[2019-03-18] MEDS ORDERED: MORPHINE SULFATE 4 MG/ML SYRINGE IV STA (01:28)
--- NOTE | 2019-03-18 01:33 | ED ---
Extremity Problem HPI - General Chief complaint: Extremity Problem,Nontraumatic Stated complaint: Hip Pain Time Seen by Provider: 03/18/19 01:06 Source: patient, EMS Mode of arrival: EMS Limitations: no limitations - History of Present Illness Initial comments: 's patient is an 88-year-old man who presents with left leg pain. The patient notes that had started between 7 and 8 PM. He states that he had been seated on and uncomfortable chair, and had been playing cards. The patient states that he tried getting up and no seizures having pain to the left leg. He indicates the left leg adductors and states that the pain wraps around to the lateral aspect. The patient indicates that there is a spasming aspect to the pain. He states that his worse if he attempts to move, and better if he lies still. When he moves it becomes severe. He denies weakness or numbness distally. MD Complaint: extremity pain Onset/Timin -: hour(s) Location: left, lower extremity History of Same: No -: Yes myalgia Radiation: none Severity scale (1-10): 10 Quality: other (Spasming) Consistency: intermittent Improves with: nothing Worsens with: other (Movement) - Related Data Home Medications Medication Instructions Recorded Confirmed Aspirin 81 mg PO DAILY 02/21/18 05/03/18 Cetirizine HCl [Zyrtec] 10 mg PO DAILY 02/21/18 05/03/18 Fluticasone/Salmeterol [Advair 1 puff INHALATION RT-BID 02/21/18 05/03/18 500-50 Diskus] Ipratropium/Albuterol Sulfate 1 puff INHALATION RT-QID 02/21/18 05/03/18 [Combivent Respimat Inhaler] Levothyroxine Sodium 25 mcg PO DAILY 02/21/18 05/03/18 Metoprolol Tartrate [Lopressor] 12.5 mg PO BID 05/03/18 05/03/18 predniSONE 5 mg PO DAILY 05/03/18 05/03/18 Previous Rx's Medication Instructions Recorded Atorvastatin [Lipitor] 40 mg PO DAILY #30 tab 02/23/18 Clopidogrel [Plavix] 75 mg PO DAILY #30 tab 02/23/18 Losartan [Cozaar] 50 mg PO DAILY #30 tab 02/23/18 Nitroglycerin Sl Tabs [Nitrostat] 0.4 mg SUBLINGUAL Q5M PRN #25 tab 02/23/18 Ciprofloxacin HCl [Cipro] 500 mg PO DAILY #14 tablet 05/06/18 Allergies Allergy/AdvReac Type Severity Reaction Status Date / Time No Known Allergies Allergy Verified 05/03/18 08:04 Review of Systems ROS Statement: Those systems with pertinent positive or pertinent negative responses have been documented in the HPI. ROS Other: All systems not noted in ROS Statement are negative. Constitutional: Denies: fever, chills, weakness Cardiovascular: Denies: chest pain, palpitations, edema Gastrointestinal: Denies: abdominal pain, vomiting, diarrhea, constipation Genitourinary: Reports: other (History of urostomy) Musculoskeletal: Reports: as per HPI, myalgia. Denies: back pain Skin: Denies: rash Neurological: Denies: headache, weakness, numbness, paresthesias Past Medical History Past Medical History: Coronary Artery Disease (CAD), Cancer, COPD, Hyperlipidemia, Hypertension, Myocardial Infarction ([place]), Osteoarthritis (OA), Thyroid Disorder Additional Past Medical History / Comment(s): Bladder cancer post urostomy, CAD post PCI of LAD and OM1, hypertension and hypertensive cardiovascular disease, hyperlipidemia, osteoarthritis, history of pancreatitis, history of carotid artery disease status post bilateral carotid endarterectomies, history of C. diff colitis. Last Myocardial Infarction Date:: 02-21-18 History of Any Multi-Drug Resistant Organisms: C-DIFF Date of last positivie culture/infection: c-diff 2007 MDRO Source:: stool Past Surgical History: Appendectomy, Heart Catheterization With Stent, Hernia Repair Additional Past Surgical History / Comment(s): bladder removal, urostomy, carotid endarterectomy bilaterally, cateract surgery, left heart catheterization with PCI of the first obtuse marginal and LAD, incisional hernia surgery. Past Anesthesia/Blood Transfusion Reactions: No Reported Reaction Date of Last Stent Placement:: Past Psychological History: No Psychological Hx Reported Smoking Status: Former smoker Past Alcohol Use History: None Reported Past Drug Use History: None Reported - Past Family History Father Family Medical History: Cancer Mother Family Medical History: CVA/TIA, Diabetes Mellitus Brother(s) Family Medical History: Coronary Artery Disease (CAD) Sister(s) Family Medical History: No Reported History Daughter(s) Family Medical History: No Reported History Son(s) Family Medical History: No Reported History General Exam Limitations: no limitations General appearance: alert, in no apparent distress Head exam: Present: atraumatic, normocephalic Respiratory exam: Present: normal lung sounds bilaterally. Absent: respiratory distress, wheezes, rales, rhonchi, stridor Cardiovascular Exam: Present: regular rate, normal rhythm, normal heart sounds. Absent: systolic murmur, diastolic murmur, rubs, gallop GI/Abdominal exam: Present: soft, other (Patient has a urostomy in the right lower quadrant which is producing clear yellow urine.). Absent: distended, tenderness, guarding, rebound, mass Extremities exam: Present: normal inspection, tenderness (The left adductor muscles have some tenderness. The pain does get worse if the patient attempts to lift his leg or abduct against resistance.), normal capillary refill. Absent: pedal edema, calf tenderness Neurological exam: Present: alert. Absent: motor sensory deficit Skin exam: Present: warm, dry, intact, normal color. Absent: rash Course Vital Signs 03/18/19 01:01 Temperature 98.1 F Pulse Rate 60 Respiratory 20 Rate Blood Pressure 187/87 O2 Sat by Pulse 96 Oximetry Medical Decision Making - Lab Data Result diagrams: 03/18/19 01:58 03/18/19 01:58 Lab Results 03/18/19 03/18/19 Range/Units 01:58 01:58 WBC 13.3 H (3.8-10.6) k/uL RBC 4.21 L (4.30-5.90) m/uL Hgb 11.0 L (13.0-17.5) gm/dL Hct 35.9 L (39.0-53.0) % MCV 85.4 (80.0-100.0) fL MCH 26.0 (25.0-35.0) pg MCHC 30.5 L (31.0-37.0) g/dL RDW 14.7 (11.5-15.5) % Plt Count 251 (150-450) k/uL Neutrophils % 81 % Lymphocytes % 9 % Monocytes % 6 % Eosinophils % 1 % Basophils % 0 % Neutrophils # 10.9 H (1.3-7.7) k/uL Lymphocytes # 1.3 (1.0-4.8) k/uL Monocytes # 0.8 (0-1.0) k/uL Eosinophils # 0.2 (0-0.7) k/uL Basophils # 0.1 (0-0.2) k/uL Hypochromasia Slight Sodium 139 (137-145) mmol/L Potassium 4.6 (3.5-5.1) mmol/L Chloride 109 H (98-107) mmol/L Carbon Dioxide 18 L (22-30) mmol/L Anion Gap 12 mmol/L BUN 44 H (9-20) mg/dL Creatinine 2.05 H (0.66-1.25) mg/dL Est GFR (CKD-EPI)AfAm 33 (>60 ml/min/1.73 sqM) Est GFR (CKD-EPI)NonAf 29 (>60 ml/min/1.73 sqM) Glucose 92 (74-99) mg/dL Calcium 8.4 (8.4-10.2) mg/dL Magnesium 1.7 (1.6-2.3) mg/dL Disposition Referrals: Alok Ospina MD [Primary Care Provider] - 1-2 days
[2019-03-18 02:11] LABS: Basophils # (A) 0.1 k/uL (0-0.2); Basophils % (A) 0 %; Eosinophils # (A) 0.2 k/uL (0-0.7); Eosinophils % (A) 1 %; HCT 35.9 % (39.0-53.0); Hypochromasia Slight; Lymphocytes # (A) 1.3 k/uL (1.0-4.8); Lymphocytes % (A) 9 %; MCHC 30.5 g/dL (31.0-37.0); MCV 85.4 fL (80.0-100.0); Mean Platelet Volume 6.5; Monocytes # (A) 0.8 k/uL (0-1.0); Monocytes % (A) 6 %; Neutrophils # (A) 10.9 k/uL (1.3-7.7); Neutrophils % (A) 81 %; Platelet Count 251 k/uL (150-450); RBC 4.21 m/uL (4.30-5.90); RDW 14.7 % (11.5-15.5); WBC 13.3 k/uL (3.8-10.6)
[2019-03-18 02:17] LABS: Calcium 8.4 mg/dL (8.4-10.2); Magnesium 1.7 mg/dL (1.6-2.3); Potassium 4.6 mmol/L (3.5-5.1)
--- NOTE | 2019-03-18 02:25 | XR ---
EXAM: XR Left Hip With Pelvis When Performed, 1 View CLINICAL HISTORY: Pain TECHNIQUE: Frontal view of the left hip, with pelvis when performed. COMPARISON: No relevant prior studies available. FINDINGS: Bones/joints: No acute fracture or traumatic malalignment. Soft tissues: Surgical clips project over the pelvis. IMPRESSION: No acute findings.
[2019-03-18] MEDS ORDERED: DIAZEPAM 5 MG/ML 2 ML INJ IVP STA (02:35)
[2019-03-18] MEDS ORDERED: HYDROmorphone 0.5 MG/0.5 ML SYRINGE IVP STA (04:12)
[2019-03-18] MEDS ORDERED: NALOXONE 0.4 MG/ML 1 ML VIAL IV PRN (05:55)
[2019-03-18] MEDS ORDERED: SODIUM CHLORIDE 0.9% 1,000 ML IV SCH (06:00)
--- NOTE | 2019-03-18 06:57 | CT ---
EXAM: CT Left Lower Extremity Without Intravenous Contrast, Hip CLINICAL HISTORY: Pain TECHNIQUE: Axial computed tomography images of the left hip without intravenous contrast. CTDI is 0.085, 0.242, 15.8 mGy and DLP is 383.6 mGy-cm. This CT exam was performed using one or more of the following dose reduction techniques: automated exposure control, adjustment of the mA and/or kV according to patient size, and/or use of iterative reconstruction technique. COMPARISON: No relevant prior studies available. FINDINGS: Bones/joints: No acute fracture or traumatic malalignment. Small left hip joint effusion, which is nonspecific. Soft tissues: Surgical clips are seen within left hemipelvis. Bowel: Noninflamed clot diverticulosis. IMPRESSION: 1. No acute fracture or traumatic malalignment. 2. Small left hip joint effusion, which is nonspecific.
[2019-03-18] MEDS: MORPHINE SULFATE 4 MG/ML SYRINGE IV PRN ×2 (08:16→17:04)
[2019-03-18] MEDS ORDERED: NITROGLYCERIN SL TABS 0.4 MG TAB SUBLINGUAL PRN (09:11)
[2019-03-18] MEDS ORDERED: predniSONE 5 MG TAB PO SCH (09:15)
[2019-03-18] MEDS: LOSARTAN 50 MG TAB PO SCH (09:59)
[2019-03-18] MEDS: METOPROLOL TARTRATE 12.5 MG TAB PO SCH ×2 (09:59→21:49)
[2019-03-18] MEDS: LORATADINE 10 MG TAB PO SCH (09:59)
[2019-03-18] MEDS: ATORVASTATIN 40 MG TAB PO SCH (09:59)
[2019-03-18] MEDS: ASPIRIN 81 MG PO SCH (09:59)
[2019-03-18] MEDS: LEVOTHYROXINE 50 MCG TAB PO SCH (09:59)
[2019-03-18] MEDS: GLIMEPIRIDE 1 MG TAB PO SCH (10:04)
--- NOTE | 2019-03-18 10:09 | P.CNOR ---
<Lia Menjivar - Last Filed: 03/18/19 10:44> History of Present Illness - [facility] Consult date: 03/18/19 Consult reason: joint pain (Left hip pain) History of present illness: The patient is an 88-year-old male with a history of gout, RA, CAD, COPD, hypertension, [place], type 2 diabetes, bladder cancer, chronic renal disease, and neuropathy, who presented to the emergency department last night with left hip pain. He states that he was playing cards and went to stand up and had immediate left hip pain. He tried to walk off the pain but the pain continued to worsen. The patient denies a fall or trauma. No other areas of pain at this time. He presented to the emergency department for further evaluation and care. The pain is severe on the lateral aspect of the hip but does have groin pain at times. The patient's family states that he has a history of gout and was on oral medications but developed an increase in BUN and creatinine and the medication was discontinued. The patient also has a possible history of rheumatoid arthritis and was started on prednisone 5 mg daily. The family states that he was doing well on the prednisone with only had minor aches and pains over the past 2-3 years. Approximately 2 months ago he was restarted on his oral diabetic medication and the daughter noticed an increase in joint pain. Over the last 2 months, he has had shoulder and wrist pain which is now resolved at this time. He denies recent fever, chills, rigors, shortness of breath, chest pain, abdominal that today. He does live at home with his and is ambulatory without an assistive device. Orthopedics was consulted for further evaluation. Review of Systems Constitutional: Denies chills, Denies fatigue, Denies fever Cardiovascular: Denies chest pain, Denies shortness of breath Respiratory: Denies cough Gastrointestinal: Denies diarrhea, Denies nausea, Denies vomiting Musculoskeletal: left: hip pain, hip stiffness Past Medical History Past Medical History: Coronary Artery Disease (CAD), Cancer, COPD, Hyperlipidemia, Hypertension, Myocardial Infarction ([place]), Renal Disease, Rheumatoid Arthritis ([place]), Thyroid Disorder, Vascular Disorder Additional Past Medical History / Comment(s): Rheumatoid arthritis and recently has been receiving PT on his shoulders/wrists/hands, HTN cardiovascular disease, LVH, bladder cancer/urostomy, UTIs, NIDDM type II, neuropathy bilateral feet, CKD stage IIIB, pancreatitis, hypothyroid. Last Myocardial Infarction Date:: 02-21-18 History of Any Multi-Drug Resistant Organisms: C-DIFF Year Discovered:: c-diff 2007 MDRO Source:: stool Past Surgical History: Appendectomy, Heart Catheterization With Stent, Hernia Repair Additional Past Surgical History / Comment(s): Cystectomy with urostomy, PCI with stents to LAD/OM1, bilateral caratid endartectomies, incisional hernia repairs, colonoscopies, bilateral cataract removals/lens implants. Past Anesthesia/Blood Transfusion Reactions: No Reported Reaction Additional Past Anesthesia/Blood Transfusion Reaction / Comm: Pt has received blood in past without reaction. Date of Last Stent Placement:: Smoking Status: Former smoker Additional Past Alcohol Use History / Comment(s): Patient smoked for 17 years. Patient lives at home with his . He is independent. 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 - Past Family History Father Family Medical History: Cancer Additional Family Medical History / Comment(s): Father at age 65 from Bone cancer. Mother Family Medical History: CVA/TIA, Diabetes Mellitus Additional Family Medical History / Comment(s): Mother at age 67 from diabetes and CVA. Brother(s) Family Medical History: Coronary Artery Disease (CAD) Additional Family Medical History / Comment(s): Patient had one brother at age 86 from heart disease. Sister(s) Family Medical History: No Reported History Additional Family Medical History / Comment(s): Patient has one sister that is alive and well. Daughter(s) Family Medical History: No Reported History Additional Family Medical History / Comment(s): Patient has one daughter with no major medical problems. Son(s) Family Medical History: No Reported History Additional Family Medical History / Comment(s): Patient has one son with no major medical problems. Medications and Allergies Home Medications Medication Instructions Recorded Confirmed Type Aspirin 81 mg PO DAILY 02/21/18 03/18/19 History Cetirizine HCl [Zyrtec] 10 mg PO DAILY 02/21/18 03/18/19 History Fluticasone/Salmeterol [Advair 1 puff INHALATION RT-BID 02/21/18 03/18/19 History 500-50 Diskus] Ipratropium/Albuterol Sulfate 1 puff INHALATION RT-QID 02/21/18 03/18/19 History [Combivent Respimat Inhaler] Atorvastatin [Lipitor] 40 mg PO DAILY #30 tab 02/23/18 03/18/19 Rx Losartan [Cozaar] 50 mg PO DAILY #30 tab 02/23/18 03/18/19 Rx Nitroglycerin Sl Tabs [Nitrostat] 0.4 mg SUBLINGUAL Q5M PRN #25 tab 02/23/18 03/18/19 Rx Metoprolol Tartrate [Lopressor] 12.5 mg PO BID 05/03/18 03/18/19 History predniSONE 5 mg PO DAILY 05/03/18 03/18/19 History Glimepiride [Amaryl] 1 mg PO [id number] 03/18/19 03/18/19 History Levothyroxine Sodium [Synthroid] 50 mcg PO DAILY 03/18/19 03/18/19 History Allergies Allergy/AdvReac Type Severity Reaction Status Date / Time No Known Allergies Allergy Verified 03/18/19 06:19 Physical Examination The patient is an 88 y/o male who is no acute distress. He is alert and oriented x3. He appears comfortable lying flat in bed. No open wounds or erythema present. Patient has pain over the trochanteric bursa to palpation. There is irritability of the hip joint upon straight leg raise, internal and external rotation. No instability of the hip. EHL strength is good. Deep tendon reflexes are intact and equal. No pain to palpation of the knee. Calf is soft and non- tender. Circulatory status is intact. Neurological status is intact. Results - Labs Labs: Abnormal Lab Results - Last 24 Hours (Table) 03/18/19 03/18/19 Range/Units 01:58 01:58 WBC 13.3 H (3.8-10.6) k/uL RBC 4.21 L (4.30-5.90) m/uL Hgb 11.0 L (13.0-17.5) gm/dL Hct 35.9 L (39.0-53.0) % MCHC 30.5 L (31.0-37.0) g/dL Neutrophils # 10.9 H (1.3-7.7) k/uL Chloride 109 H (98-107) mmol/L Carbon Dioxide 18 L (22-30) mmol/L BUN 44 H (9-20) mg/dL Creatinine 2.05 H (0.66-1.25) mg/dL H & H 03/18/19 Range/Units 01:58 Hgb 11.0 L (13.0-17.5) gm/dL Hct 35.9 L (39.0-53.0) % Result Diagrams: 03/18/19 01:58 03/18/19 01:58 - Diagnostic results Hip CT: image reviewed (Small hip joint effusion on the left, which is nonspecific. No fractures seen. ) Assessment and Plan (1) Left hip pain Current Visit: Yes Status: Acute Code(s): M25.552 - PAIN IN LEFT HIP SNOMED Code(s): 56111616 (2) Rheumatoid arthritis Current Visit: Yes Status: Acute Code(s): M06.9 - RHEUMATOID ARTHRITIS, U NSPECIFIED SNOMED Code(s): 87000270 (3) Gout Current Visit: Yes Status: Acute Code(s): M10.9 - GOUT, UNSPECIFIED SNOMED Code(s): 68387725 Plan: The clinical, x-ray, and CT findings were discussed with the patient and the patient's family. The case was discussed with Dr. Fransisco Marie. No surgical intervention is planned at this time. Continue pain control. CRP and sed rate have been ordered this morning. There is a possible rheumatological pathology suspected at this time. The patient will be evaluated by Dr. Marie this afternoon and further recommendations to follow. <Fransisco Marie - Last Filed: 03/18/19 12:55> Results - Labs Labs: Abnormal Lab Results - Last 24 Hours (Table) 03/18/19 03/18/19 03/18/19 Range/Units 01:58 01:58 01:58 WBC 13.3 H (3.8-10.6) k/uL RBC 4.21 L (4.30-5.90) m/uL Hgb 11.0 L (13.0-17.5) gm/dL Hct 35.9 L (39.0-53.0) % MCHC 30.5 L (31.0-37.0) g/dL Neutrophils # 10.9 H (1.3-7.7) k/uL ESR 18 H (0-15) mm/hr Chloride 109 H (98-107) mmol/L Carbon Dioxide 18 L (22-30) mmol/L BUN 44 H (9-20) mg/dL Creatinine 2.05 H (0.66-1.25) mg/dL C-Reactive Protein (<10.0) mg/L 03/18/19 Range/Units 01:58 WBC (3.8-10.6) k/uL RBC (4.30-5.90) m/uL Hgb (13.0-17.5) gm/dL Hct (39.0-53.0) % MCHC (31.0-37.0) g/dL Neutrophils # (1.3-7.7) k/uL ESR (0-15) mm/hr Chloride (98-107) mmol/L Carbon Dioxide (22-30) mmol/L BUN (9-20) mg/dL Creatinine (0.66-1.25) mg/dL C-Reactive Protein 31.1 H (<10.0) mg/L H & H 03/18/19 Range/Units 01:58 Hgb 11.0 L (13.0-17.5) gm/dL Hct 35.9 L (39.0-53.0) % Result Diagrams: 03/18/19 01:58 03/18/19 01:58 Assessment and Plan Plan: Discussed with EDVIN Menjivar and agree with above. The patient was also seen and examined by me. He denies antecedent hip pain. He has a history of gout but states that the flareups have been in his wrists in the past. He admits to diffuse musculoske letal pains that have been well-controlled with oral prednisone in the past. He states that the pain at rest is fairly mild and much worse with movement. Exam: He is able to perform limited active rotation of the hip but this causes pain. Moderate pain with logroll (even with very little movement). Moderate tenderness to palpation anteriorly in the groin and along the iliopsoas. Increased pain with passive hip extension A/P: Left hip pain and effusion Discussed the clinical and radiograph findings with the patient. While an inflammatory arthropathy is most likely, this could also be infectious. Recommend obtaining an MRI of the left hip. Ideally, this would be performed with gadolinium for the most benefit but may defer using it concern for renal compromise. If the MRI shows nothing concerning for infection, we will likely continue IV steroids and begin physical therapy. The patient expressed understanding and was in agreement with this plan. Thank you for allowing me to participate in the care of this patient. Fransisco Marie D.O. [facility]
[2019-03-18] MEDS: methylPREDNISolone SOD SUCCI 40 MG/ML 1 ML VIAL IV SCH ×3 (11:42→23:28)
[2019-03-18 11:43] LABS: Glucose,Whole Blood 94 mg/dL (75-99)
[2019-03-18] MEDS ORDERED: IPRATROPIUM-ALBUTEROL 3 ML NEB INHALATION SCH (12:00)
[2019-03-18] MEDS: IPRATROPIUM-ALBUTEROL 3 ML NEB INHALATION SCH ×3 (12:20→21:07)
--- NOTE | 2019-03-18 14:02 | P.HPIM ---
History of Present Illness H&P Date: 03/18/19 Chief Complaint: Left hip pain This is an 88-year-old male one of Dr. Alok Ospina with a previous medical history significant for hypertension and hypertensive cardiovascular disease with left ventricular hypertrophy, CAD post PCI of the first obtuse marginal and LAD with 2 drug-eluting stent placement, carotid artery disease status post bilateral carotid endarterectomies, hyperlipidemia, bladder cancer status post urostomy, hypothyroidism, COPD rheumatoid arthritis, hyperlipidemia, history of pancreatitis and history of C. difficile colitis, chronic kidney disease stage IIIB, diabetes mellitus type 2. Patient is complaining of left hip pain was a sudden onset yesterday. He denies any injury or fall. He was taking Tylenol at home. He is not normally using a walker or cane for ambulation. Patient presented to [facility] emergency center for evaluation. He was afebrile, heart rate 60, blood pressure initially 187/87, pulse ox 96% on room air. White count 13.3, hemoglobin 11. BUN 44 and creatinine 2.05. Sodium 139, potassium 4.6, chloride 109, CO2 18. Left hip x- ray shows no acute findings. Patient was given Dilaudid, Valium and morphine and placed on the MedSur floor, orthopedic consult requested. Subsequently, CT left hip showed no acute fracture or traumatic malalignment. Small left hip joint effusion which is nonspecific. Patient has been seen by orthopedics with no plan for any surgical intervention. Expect this is pain from rheumatoid arthritis. Review of Systems Constitutional: Denies anorexia, Denies chills, Denies fatigue, Denies fever, Denies lethargy, Denies malaise, Denies poor appetite, Denies weakness, Denies weight loss Ears, nose, mouth and throat: Denies dysphagia, Denies nasal congestion, Denies nasal discharge, Denies vertigo Cardiovascular: Denies chest pain, Denies dyspnea on exertion, Denies edema, Denies leg edema, Denies lightheadedness, Denies orthopnea, Denies shortness of breath, Denies syncope Respiratory: Denies congestion, Denies cough, Denies cough with sputum, Denies dyspnea, Denies excessive sputum, Denies hemoptysis, Denies home oxygen Gastrointestinal: Denies abdominal pain, Denies diarrhea, Denies loss of appetite, Denies nausea, Denies vomiting Genitourinary: Denies urinary frequency, Denies urinary retention Musculoskeletal: Reports gait dysfunction, Denies frequent falls, Denies low back pain, Denies muscle weakness, Denies myalgias Musculoskeletal: left: hip pain, hip stiffness Integumentary: Denies pruritus, Denies rash, Denies unusual bruising, Denies wounds Neurological: Denies aphasia, Denies change in mentation, Denies change in speech, Denies confusion, Denies head injury, Denies headaches, Denies numbness, Denies seizures, Denies syncope, Denies weakness Psychiatric: Denies anxiety, Denies depression Endocrine: Denies fatigue, Denies weight change Past Medical History Past Medical History: Coronary Artery Disease (CAD), Cancer, COPD, Hyperlipidemia, Hypertension, Myocardial Infarction (AL), Renal Disease, Rheumatoid Arthritis (RA), Thyroid Disorder, Vascular Disorder Additional Past Medical History / Comment(s): Rheumatoid arthritis and recently has been receiving PT on his shoulders/wrists/hands, HTN cardiovascular disease, LVH, bladder cancer/urostomy, UTIs, NIDDM type II, neuropathy bilateral feet, CKD stage IIIB, pancreatitis, hypothyroid. Last Myocardial Infarction Date:: 02-21-18 History of Any Multi-Drug Resistant Organisms: C-DIFF Date of last positivie culture/infection: c-diff 2007 MDRO Source:: stool Past Surgical History: Appendectomy, Heart Catheterization With Stent, Hernia Repair Additional Past Surgical History / Comment(s): Cystectomy with urostomy, PCI with stents to LAD/OM1, bilateral caratid endartectomies, incisional hernia repairs, colonoscopies, bilateral cataract removals/lens implants. Past Anesthesia/Blood Transfusion Reactions: No Reported Reaction Additional Past Anesthesia/Blood Transfusion Reaction / Comment(s): Pt has received blood in past without reaction. Date of Last Stent Placement:: Smoking Status: Former smoker Additional Past Alcohol Use History / Comment(s): Patient smoked for 17 years. Patient lives at home with his . He is independent. 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 - Past Family History Father Family Medical History: Cancer Additional Family Medical History / Comment(s): Father at age 65 from Bone cancer. Mother Family Medical History: CVA/TIA, Diabetes Mellitus Additional Family Medical History / Comment(s): Mother at age 67 from diabetes and CVA. Brother(s) Family Medical History: Coronary Artery Disease (CAD) Additional Family Medical History / Comment(s): Patient had one brother at age 86 from heart disease. Sister(s) Family Medical History: No Reported History Additional Family Medical History / Comment(s): Patient has one sister that is alive and well. Daughter(s) Family Medical History: No Reported History Additional Family Medical History / Comment(s): Patient has one daughter with no major medical problems. Son(s) Family Medical History: No Reported History Additional Family Medical History / Comment(s): Patient has one son with no major medical problems. Medications and Allergies Home Medications Medication Instructions Recorded Confirmed Type Aspirin 81 mg PO DAILY 02/21/18 03/18/19 History Cetirizine HCl [Zyrtec] 10 mg PO DAILY 02/21/18 03/18/19 History Fluticasone/Salmeterol [Advair 1 puff INHALATION RT-BID 02/21/18 03/18/19 History 500-50 Diskus] Ipratropium/Albuterol Sulfate 1 puff INHALATION RT-QID 02/21/18 03/18/19 History [Combivent Respimat Inhaler] Atorvastatin [Lipitor] 40 mg PO DAILY #30 tab 02/23/18 03/18/19 Rx Losartan [Cozaar] 50 mg PO DAILY #30 tab 02/23/18 03/18/19 Rx Nitroglycerin Sl Tabs [Nitrostat] 0.4 mg SUBLINGUAL Q5M PRN #25 tab 02/23/18 03/18/19 Rx Metoprolol Tartrate [Lopressor] 12.5 mg PO BID 05/03/18 03/18/19 History predniSONE 5 mg PO DAILY 05/03/18 03/18/19 History Glimepiride [Amaryl] 1 mg PO [id number]-[id number] 03/18/19 03/18/19 History Levothyroxine Sodium [Synthroid] 50 mcg PO DAILY 03/18/19 03/18/19 History Allergies Allergy/AdvReac Type Severity Reaction Status Date / Time No Known Allergies Allergy Verified 03/18/19 06:19 Physical Exam Vitals: Vital Signs Temp Pulse Resp BP Pulse Ox 03/18/19 07:48 90 18 165/81 93 L 08/02/19 06:10 98.0 F 84 18 163/84 97 03/18/19 01:01 98.1 F 60 20 187/87 96 Intake and Output 03/17/19 03/18/19 03/18/19 22:59 06:59 14:59 Output Total 400 Balance -400 Output: Urine 400 Other: Weight 81.647 kg - Constitutional General appearance: average body habitus, mild distress - EENT Eyes: anicteric sclerae, EOMI, PERRLA, no ptosis, no scleral icterus, normal appearance ENT: hearing grossly normal, NA/AT, normal oropharynx, no thrush Ears: bilateral: normal - Neck Neck: no lymphadenopathy, normal ROM, no rigidity, no stridor, no thyromegaly Carotids: bilateral: upstroke delayed Thyroid: bilateral: normal size - Respiratory Respiratory: bilateral: diminished, prolonged expiration, negative: dullness, rales, rhonchi, wheezing - Cardiovascular Rhythm: regular Heart sounds: normal: S1, S2 Abnormal Heart Sounds: systolic murmur, no S3 Gallop - Gastrointestinal General gastrointestinal: normal bowel sounds, soft, no splenomegaly, no tenderness, no umbilical hernia, ventral hernia (there is urostomy with hernia.) - Integumentary Integumentary: normal, normal turgor - Neurologic Neurologic: CNII-XII intact - Musculoskeletal Musculoskeletal: generalized weakness, strength equal bilaterally Left hip pain increased with rotation - Psychiatric Psychiatric: A&O x's 3, appropriate affect, intact judgment & insight Results CBC & Chem 7: 03/18/19 01:58 03/18/19 01:58 Labs: Abnormal Lab Results - Last 24 Hours (Table) 03/18/19 03/18/19 Range/Units 01:58 01:58 WBC 13.3 H (3.8-10.6) k/uL RBC 4.21 L (4.30-5.90) m/uL Hgb 11.0 L (13.0-17.5) gm/dL Hct 35.9 L (39.0-53.0) % MCHC 30.5 L (31.0-37.0) g/dL Neutrophils # 10.9 H (1.3-7.7) k/uL Chloride 109 H (98-107) mmol/L Carbon Dioxide 18 L (22-30) mmol/L BUN 44 H (9-20) mg/dL Creatinine 2.05 H (0.66-1.25) mg/dL Thrombosis Risk Factor Assmnt - DVT/VTE Prophylaxis DVT/VTE Prophylaxis: Pharmacologic Prophylaxis ordered - Choose All That Apply Any of the Below Risk Factors Present?: Yes Each Factor Represents 1 point: Abnormal pulmonary function (COPD) Other Risk Factors: Yes Each Risk Factor Represents 2 Points: Malignancy Each Risk Factor Represents 3 Points: Age 75 years or older Other congenital or acquired thrombophilia - If yes, enter type in comment: No Thrombosis Risk Factor Assessment Total Risk Factor Score: 6 Thrombosis Risk Factor Assessment Level: High Risk Assessment and Plan Plan: 1. Left hip pain possibly related to rheumatoid arthritis. Oral prednisone will be discontinued and patient placed on Solu-Medrol 40 mg every 6 hours. PT and OT added. Sed rate, CRP, uric acid and CCP. Orthopedic consult appreciated. MRI of the left hip has been added. 2. Chronic kidney disease stage IIIB. 3. Rheumatoid arthritis. Patient is normally on prednisone 5 mg daily. Continue Solu-Medrol. 4. CAD post PCI of the LAD and OM1. Continue aspirin 81 mg once every day, metoprolol 12.5 mg orally twice every day, Lipitor 40 mg orally once every day. 5. Hypertension and hypertensive cardiovascular disease. Continue patient on metoprolol 12.5 mg orally twice every day and losartan 50 mg orally once every day. 6. Hyperlipidemia. Continue Lipitor 40 mg orally once every day. 7. COPD. Currently the patient on Advair Diskus 250/50 one puff inhalation twice every day, oxygen as needed. 8. Diabetes mellitus type 2. Continue glimepiride 1 mg daily. 9. Hypothyroidism. Continue levothyroxine 50 g daily 10. History of bladder cancer status post urostomy, stable. 11. Osteoarthritis, generalized. Stable at this time. 12. Carotid artery disease status post bilateral carotid endarterectomies. 13. History of C. difficile colitis. No active diarrhea. 14. GI prophylaxis. Continue patient on PPI. 15. DVT prophylaxis. Lovenox 30 mg subcutaneously once every day. Patient places in observation status. Discharge plan: Most likely home with homecare Impression and plan of care have been directed as dictated by the signing physician. Melvina Solorzano nurse practitioner acting as scribe for signing physician.
[2019-03-18 17:07] LABS: Glucose,Whole Blood 191 mg/dL (75-99)
[2019-03-18] MEDS: INSULIN ASPART (NovoLOG) 100 UNIT/ML VIAL SQ SCH ×2 (17:15→21:49)
--- NOTE | 2019-03-18 17:42 | MR ---
EXAMINATION TYPE: MR hip LT wo/w con DATE OF EXAM: 03/18/2019 COMPARISON: CT dated 03/18/2019 HISTORY: Lt hip pain, R/O abscess CONTRAST: Standard multiplanar, multisequence MRI departmental protocol utilizing 7.5 mL intravenous Gadavist g adolinium contrast. FINDINGS: Small left hip joint effusion, nonspecific on the prior CT earlier the same date is redemon strated. Additionally there is left hip girdle musculature intramuscular edema and inflammatory fat s tranding. No discrete focal drainable fluid collection is seen. No current focal bone marrow edema. N ondisplaced anterior labral tear is noted on the left. Subcutaneous edema overlies the vastus lateral is. The femoral heads maintain a normal rounded contour. 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 Moderate bilateral femoral acetabular arthropathy is seen as s mall subchondral cysts of the acetabulum, acetabular roof sclerosis, cephalad joint space narrowing, and small marginal osteophytes. Post contrast images demonstrate no suspicious enhancement however no contrast is seen in the vasculature and therefore poor bolus timing or extravasation are possible. T here is internal complexity noted in the joint effusion commonly seen on sagittal imaging posteriorly . Edema predominating centrally adductor musculature. Sigmoid diverticulosis without evidence of acute diverticulitis. Fat filled ventral hernia. Right low er quadrant presumed ostomy although ostomy defect is not seen bowel is noted in the subcutaneous tis sues of the right lower quadrant. Therefore there is also a presumed parastomal hernia. IMPRESSION: 1. Complex small left joint effusion and extensive intramuscular and subcutaneous edema surrounding t he left hip girdle musculature predominating in the adductor musculature. Given the extensive myositi s and internal complexity of a joint effusion septic joint effusion should be considered. Correlate w ith cycle exam and laboratory values. No discrete abscess is seen. 2. Moderate bilateral femoral acetabular arthropathy. 3. Nondisplaced anterosuperior left hip labral tear. 4. Other incidental findings, partially visualized described above. A [place] level critical message alert has been initiated for Lia Menjivar via the [employer] Critical Results System on 03/18/2019 5:39 PM. This message alert has been sent to Lia Menjivar via t he preferences provided by the clinician for the receipt of Radiology Critical Findings. Message ID [id number].
[2019-03-18 19:33] LABS: Cyclic Citrull Pep IgG Unit >300.0 U/mL; Cyclic Citrullinated Pep IgG POSITIVE (NEGATIVE)
[2019-03-18 20:01] LABS: Glucose,Whole Blood 323 mg/dL (75-99)
[2019-03-18] MEDS: SYMBICORT 160-4.5 MCG INHALER INHALATION SCH (21:07)
[2019-03-18 21:54] LABS: Appearance,BF Cloudy; Color,BF Yellow
[2019-03-18 22:03] LABS: Nucleated Cells, Body Fluid 75900 /uL; RBC, Body Fluid 1400 /uL
[2019-03-18 22:11] LABS: Mononuclear WBC,Body Fluid 11 %; Polynuclear WBC,Body Fluid 89 %; Total Cells Counted,Body Fluid 100
[2019-03-19 06:51] LABS: Glucose,Whole Blood 216 mg/dL (75-99)
[2019-03-19] MEDS: methylPREDNISolone SOD SUCCI 40 MG/ML 1 ML VIAL IV SCH (06:58)
[2019-03-19] MEDS: SYMBICORT 160-4.5 MCG INHALER INHALATION SCH ×2 (08:06→19:45)
[2019-03-19] MEDS: IPRATROPIUM-ALBUTEROL 3 ML NEB INHALATION SCH ×4 (08:06→19:45)
[2019-03-19] MEDS: HYDROcodone/APAP 5-325MG 1 EACH TAB PO PRN (08:28)
[2019-03-19] MEDS: METOPROLOL TARTRATE 12.5 MG TAB PO SCH ×2 (08:29→20:07)
[2019-03-19] MEDS: ASPIRIN 81 MG PO SCH (08:29)
[2019-03-19] MEDS: ENOXAPARIN 30 MG/0.3 ML SYRINGE SQ SCH (08:29)
[2019-03-19] MEDS: LORATADINE 10 MG TAB PO SCH (08:29)
[2019-03-19] MEDS: ATORVASTATIN 40 MG TAB PO SCH (08:29)
[2019-03-19] MEDS: GLIMEPIRIDE 1 MG TAB PO SCH (08:29)
[2019-03-19] MEDS: LEVOTHYROXINE 50 MCG TAB PO SCH (08:29)
[2019-03-19] MEDS: INSULIN ASPART (NovoLOG) 100 UNIT/ML VIAL SQ SCH ×4 (08:29→20:08)
[2019-03-19] MEDS: FAMOTIDINE 20 MG TAB PO SCH (08:29)
[2019-03-19] MEDS: LOSARTAN 50 MG TAB PO SCH (08:29)
[2019-03-19] MEDS ORDERED: VANCOMYCIN 1,500 MG in SODIUM CHLORIDE 0.9% 250 ML IVPB ONE (10:15)
[2019-03-19] MEDS ORDERED: VANCOMYCIN IV PER PHARMACY 1 EACH MISC MISCELLANE SCH (10:15)
[2019-03-19] MEDS ORDERED: traMADol 50 MG TAB PO PRN (10:15)
[2019-03-19 11:19] LABS: Glucose,Whole Blood 238 mg/dL (75-99)
--- NOTE | 2019-03-19 11:57 | P.PN ---
Subjective Progress Note Date: 03/19/19 The patient was seen and examined at the bedside. He had an ultrasound-guided aspiration of his left hip last night. He denies any adverse reactions from the procedure. He states the pain in the hip has significantly improved. He is now able to bear weight. Objective - Vital Signs Vital signs: Vital Signs Temp 97.7 F 03/19/19 04:55 Pulse 74 03/19/19 11:27 Resp 18 03/19/19 04:55 BP 132/63 03/19/19 04:55 Pulse Ox 92 L 03/19/19 04:55 Intake & Output 03/18/19 03/19/19 03/19/19 18:59 06:59 18:59 Intake Total 590 Output Total 1100 1200 Balance -1100 -610 Intake: Oral 590 Output: Urine 1100 1200 Other: Voiding Method Ileal Conduit (Right) Ileal Conduit (Right) Ileal Conduit (Right) - Exam Upon entering the room, the patient was ambulating independently with a walker without obvious signs of pain. No focal tenderness around the hip. The patient is able to actively move the hip with mild discomfort but significantly improved from prior exam. - Labs CBC & Chem 7: 03/18/19 01:58 03/19/19 10:52 Labs: Abnormal Lab Results - Last 24 Hours (Table) 03/18/19 03/18/19 03/18/19 Range/Units 01:58 17:03 19:59 Creatinine (0.66-1.25) mg/dL POC Glucose (mg/dL) 191 H 323 H (75-99) mg/dL Cyclic Citrull Peptide POSITIVE H (NEGATIVE) 03/19/19 03/19/19 03/19/19 Range/Units 06:50 10:52 11:18 Creatinine 2.08 H (0.66-1.25) mg/dL POC Glucose (mg/dL) 216 H 238 H (75-99) mg/dL Cyclic Citrull Peptide (NEGATIVE) Microbiology - Last 24 Hours (Table) 03/18/19 20:52 Gram Stain - Preliminary Synovial Fluid Body Fluid Culture - Preliminary Laboratory Tests 03/18/19 03/18/19 03/19/19 19:59 20:52 06:50 POC Glucose (mg/dL) 323 H 216 H Fluid Source Synovial Fluid Color Yellow Fluid Appearance Cloudy Fluid RBC 1400 Fluid Nucleated Cells 00682 Fluid Polynuclear WBCs 89 Fluid Mononuclear WBCs 11 Synovial Crystals None Seen 03/19/19 11:18 POC Glucose (mg/dL) 238 H Fluid Source Fluid Color Fluid Appearance Fluid RBC Fluid Nucleated Cells Fluid Polynuclear WBCs Fluid Mononuclear WBCs Synovial Crystals Assessment and Plan Assessment: 1. Acute left hip pain-likely transient synovitis secondary to rheumatoid flare 2. Multiple medical comorbidities Plan: The clinical and laboratory findings were discussed with the patient. He has made substantial clinical improvement after receiving IV steroids. Though septic arthritis is still a possibility and cultures are still pending, based on his exam today, I feel that is very unlikely. We will await the final results of the synovial labs but recommend continuing the IV steroids in the interim. Continue ambulation as tolerated and PRN pain management. Begin PT/OT. We will continue to follow him while inpatient.
--- NOTE | 2019-03-19 13:28 | P.PN ---
Subjective Progress Note Date: 03/19/19 This is an 88-year-old male one of Dr. Alok Ospina with a previous medical history significant for hypertension and hypertensive cardiovascular disease with left ventricular hypertrophy, CAD post PCI of the first obtuse marginal and LAD with 2 drug-eluting stent placement, carotid artery disease status post bilateral carotid endarterectomies, hyperlipidemia, bladder cancer status post urostomy, hypothyroidism, COPD rheumatoid arthritis, hyperlipidemia, history of pancreatitis and history of C. difficile colitis, chronic kidney disease stage IIIB, diabetes mellitus type 2. Patient is complaining of left hip pain was a sudden onset yesterday. He denies any injury or fall. He was taking Tylenol at home. He is not normally using a walker or cane for ambulation. Patient presented to [facility] emergency center for evaluation. He was afebrile, heart rate 60, blood pressure initially 187/87, pulse ox 96% on room air. White count 13.3, hemoglobin 11. BUN 44 and creatinine 2.05. Sodium 139, potassium 4.6, chloride 109, CO2 18. Left hip x- ray shows no acute findings. Patient was given Dilaudid, Valium and morphine and placed on the MedSur floor, orthopedic consult requested. Subsequently, CT left hip showed no acute fracture or traumatic malalignment. Small left hip joint effusion which is nonspecific. Patient has been seen by orthopedics with no plan for any surgical intervention. Expect this is pain from rheumatoid arthritis. 03/18: MRI of the left hip revealed complex small left small effusion and extensive intramuscular and suctioning his edema surrounding the left hip girdle musculature predominating in the adductor musculature. Given extensive myositis anicteric internal complexity of the joint effusions septic joint effusion should be considered. Correlate. No discrete abscesses seen. Moderate bilateral femoral acetabular arthropathy. Last evening, patient underwent an ultrasound-guided aspiration of the left hip. Synovial fluid was cloudy, RBCs 1400, nucleated cells 75,900, Caterina nuclear 89%, mononuclear 11%, no crystals. Based on this information, patient will be started on IV antibiotics with cefepime and vancomycin, Solu-Medrol will be discontinued and patient will be resumed back on his oral prednisone at home dose, consult added for Dr. Subramanian regarding possible septic joint. Urine specimen will be obtained from urostomy. Objective - Vital Signs Vital signs: Vital Signs Temp 97.7 F 03/19/19 04:55 Pulse 68 03/19/19 08:20 Resp 18 03/19/19 04:55 BP 132/63 03/19/19 04:55 Pulse Ox 92 L 03/19/19 04:55 Intake & Output 03/18/19 03/19/19 03/19/19 18:59 06:59 18:59 Intake Total 590 Output Total 1100 1200 Balance -1100 -610 Intake: Oral 590 Output: Urine 1100 1200 Other: Voiding Method Ileal Conduit (Right) Ileal Conduit (Right) Ileal Conduit (Right) - Exam Review of Systems Constitutional: Denies anorexia, Denies chills, Denies fatigue, Denies fever, Denies lethargy, Denies malaise, Denies poor appetite, Denies weakness, Denies weight loss Ears, nose, mouth and throat: Denies dysphagia, Denies nasal congestion, Denies nasal discharge, Denies vertigo Cardiovascular: Denies chest pain, Denies dyspnea on exertion, Denies edema, Denies leg edema, Denies lightheadedness, Denies orthopnea, Denies shortness of breath, Denies syncope Respiratory: Denies congestion, Denies cough, Denies cough with sputum, Denies dyspnea, Denies excessive sputum, Denies hemoptysis, Denies home oxygen Gastrointestinal: Denies abdominal pain, Denies diarrhea, Denies loss of appetite, Denies nausea, Denies vomiting Genitourinary: Denies urinary frequency, Denies urinary retention Musculoskeletal: Reports gait dysfunction, Denies frequent falls, Denies low ba ck pain, Denies muscle weakness, Denies myalgias Musculoskeletal: left: hip pain, hip stiffness Integumentary: Denies pruritus, Denies rash, Denies unusual bruising, Denies wounds Neurological: Denies aphasia, Denies change in mentation, Denies change in speech, Denies confusion, Denies head injury, Denies headaches, Denies numbness, Denies seizures, Denies syncope, Denies weakness Psychiatric: Denies anxiety, Denies depression Endocrine: Denies fatigue, Denies weight change - Constitutional General appearance: average body habitus, mild distress - EENT Eyes: anicteric sclerae, EOMI, PERRLA, no ptosis, no scleral icterus, normal appearance ENT: hearing grossly normal, NA/AT, normal oropharynx, no thrush Ears: bilateral: normal - Neck Neck: no lymphadenopathy, normal ROM, no rigidity, no stridor, no thyromegaly Carotids: bilateral: upstroke delayed Thyroid: bilateral: normal size - Respiratory Respiratory: bilateral: diminished, prolonged expiration, negative: dullness, rales, rhonchi, wheezing - Cardiovascular Rhythm: regular Heart sounds: normal: S1, S2 Abnormal Heart Sounds: systolic murmur, no S3 Gallop - Gastrointestinal General gastrointestinal: normal bowel sounds, soft, no splenomegaly, no tenderness, no umbilical hernia, ventral hernia (there is urostomy with hernia.) - Integumentary Integumentary: normal, normal turgor - Neurologic Neurologic: CNII-XII intact - Musculoskeletal Musculoskeletal: generalized weakness, strength equal bilaterally Improve range of motion to the left hip - Psychiatric Psychiatric: A&O x's 3, appropriate affect, intact judgment & insight - Labs CBC & Chem 7: 03/18/19 01:58 03/19/19 10:52 Labs: Abnormal Lab Results - Last 24 Hours (Table) 03/18/19 03/18/19 03/18/19 Range/Units 01:58 01:58 01:58 ESR 18 H (0-15) mm/hr POC Glucose (mg/dL) (75-99) mg/dL C-Reactive Protein 31.1 H (<10.0) mg/L Cyclic Citrull Peptide POSITIVE H (NEGATIVE) 03/18/19 03/18/19 03/19/19 Range/Units 17:03 19:59 06:50 ESR (0-15) mm/hr POC Glucose (mg/dL) 191 H 323 H 216 H (75-99) mg/dL C-Reactive Protein (<10.0) mg/L Cyclic Citrull Peptide (NEGATIVE) Microbiology - Last 24 Hours (Table) 03/18/19 20:52 Gram Stain - Preliminary Synovial Fluid Body Fluid Culture - Preliminary Assessment and Plan Plan: 1. Left hip pain secondary to possible septic joint, status post aspiration. MRI as above. Solu-Medrol will be discontinued and patient resumed on his oral prednisone. Cefepime and vancomycin added as well as consult with Dr. Subramanian. Orthopedic consult appreciated. 2. Chronic kidney disease stage IIIB. 3. Rheumatoid arthritis. Patient is normally on prednisone 5 mg daily. Continue Solu-Medrol. 4. CAD post PCI of the LAD and OM1. Continue aspirin 81 mg once every day, metoprolol 12.5 mg orally twice every day, Lipitor 40 mg orally once every day. 5. Hypertension and hypertensive cardiovascular disease. Continue patient on metoprolol 12.5 mg orally twice every day and losartan 50 mg orally once every day. 6. Hyperlipidemia. Continue Lipitor 40 mg orally once every day. 7. COPD. Currently the patient on Advair Diskus 250/50 one puff inhalation twice every day, oxygen as needed. 8. Diabetes mellitus type 2 uncontrolled with hyperglycemia secondary to steroids. Continue glimepiride 1 mg daily. 9. Hypothyroidism. Continue levothyroxine 50 g daily 10. History of bladder cancer status post urostomy, stable. 11. Osteoarthritis, generalized. Stable at this time. 12. Carotid artery disease status post bilateral carotid endarterectomies. 13. History of C. difficile colitis. No active diarrhea. 14. GI prophylaxis. Continue patient on PPI. 15. DVT prophylaxis. Lovenox 30 mg subcutaneously once every day. Patient admitted to hospital for a minimum of 2 night stay. Discharge plan: Most likely home with homecare. To be determined. Impression and plan of care have been directed as dictated by the signing p german. Melvina Solorzano nurse practitioner acting as scribe for signing physician.
[2019-03-19 16:04] LABS: Amorphous Sediment,Urine Rare /hpf; Appearance,Urine Cloudy (Clear); Bacteria,Urine Many /hpf; Bilirubin,Urine Negative (Negative); Blood,Urine Small (Negative); Budding Yeast,Urine Few /hpf; Color,Urine Yellow; Glucose,Urine (UA) Trace (Negative); Ketones,Urine Negative (Negative); Leukocyte Esterase,Urine Large (Negative); Mucus,Urine Rare /hpf; Nitrite,Urine Negative (Negative); PH, Urine 5.5 (5.0-8.0); Protein,Urine 1+ (Negative); RBC,Urine 18 /hpf (0-5); Specific Gravity,Urine 1.017 (1.001-1.035); Squamous Epithelial Cell,Urine 1 /hpf (0-4); Urobilinogen,Urine <2.0 mg/dL (<2.0)
--- NOTE | 2019-03-19 16:45 | P.CONS ---
History of Present Illness - Reason for Consult Consult date: 03/19/19 - Chief Complaint left hip pain - History of Present Illness 88 -year-old male who is a history of rheumatoid arthritis, gout, coronary artery disease and COPD as well as a history of diabetes mellitus type 2 presents to the emergency center with significant onset of left hip pain. The patient was performing some routine activities including playing cards. Apparently as he stood up he had severe pain into his left hip and over the relatively short period of time he was no longer able to ambulate onto that hip and presented to the emergency center. It is noted he does have a history of gout but usually this is not been within his hip is more of his hands. The patient's pain was severe yesterday to the point where attempts for any motion to the limb caused him to cry out in pain. Today is slightly improved. He's had no antecedent fevers, chills, rigors or sweats. There's been no specific new trauma or falls. The family is present relates that he does have a new diagnosis of rheumatoid arthritis and has been initiated to some steroid therapy. But no other specific therapies or biologicals had been started as of yet. At the moment the patient is sitting upright is able to move his leg a bit although it is painful. But better than yesterday. He's eaten his lunch without difficulties and is having no other acute complaints at this time. He is never any difficulty with the hip like this in the past. He does have a history of bladder cancer and has a urostomy in place. The family relates that when he has urine infection he gets weak and has difficulty walking, because of some similarities to those symptoms they were concerned and ensure that he came to hospital. Review of Systems Patient relate more comfortable today. HEENT:Denies headache or acute visual change. Denies sinus or mouth discomforts. Denies neck stiffness or pain. Denies significant oral cavity pain. Denies difficulty on swallowing. Lungs: Denies significant shortness of breath, cough, sputum production, or hemoptysis. Cardiovascular: Denies significant shortness of breath, chest pain, chest wall pain, orthopnea, dyspnea on exertion, syncope Gastrointestinal:Denies nausea, vomiting, diarrhea, constipation, hematemesis, melena, hematochezia. No no significant change of bowel habit noticed. Musculoskeletal: He has significant musculoskeletal complaints as far as multiple joint discomforts however the severe pain to the left hip is improved since admission. Skin: Denies new rash or lesions. No new ulcers or wounds are related.. Neuro: Denies headache or visual change. Denies any new onset weakness or difficulty with ambulation. Denies falls or seizures. Psychiatric:Denies anxiety or depression. Endocrine: Denies significant fatigue, denies significant weight loss or weight gain. Past Medical History Past Medical History: Coronary Artery Disease (CAD), Cancer, COPD, Hyperlipidemi a, Hypertension, Myocardial Infarction (SD), Renal Disease, Rheumatoid Arthritis (RA), Thyroid Disorder, Vascular Disorder Additional Past Medical History / Comment(s): Rheumatoid arthritis and recently has been receiving PT on his shoulders/wrists/hands, HTN cardiovascular disease, LVH, bladder cancer/urostomy, UTIs, NIDDM type II, neuropathy bilateral feet, CKD stage IIIB, pancreatitis, hypothyroid. Last Myocardial Infarction Date:: 02-21-18 History of Any Multi-Drug Resistant Organisms: C-DIFF Year Discovered:: c-diff 2007 MDRO Source:: stool Past Surgical History: Appendectomy, Heart Catheterization With Stent, Hernia Repair Additional Past Surgical History / Comment(s): Cystectomy with urostomy, PCI with stents to LAD/OM1, bilateral caratid endartectomies, incisional hernia repairs, colonoscopies, bilateral cataract removals/lens implants. Past Anesthesia/Blood Transfusion Reactions: No Reported Reaction Additional Past Anesthesia/Blood Transfusion Reaction / Comm: Pt has received blood in past without reaction. Date of Last Stent Placement:: Additional Psychological History / Comment(s): and lives in the family home with his . 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 Was in the [employer], [employer] and [employer]. Has traveled to [facility] in [place] in the past. No animals in the home. Stopped smoking in 1965. No history of significant alcohol or drug use Smoking Status: Former smoker Additional Past Alcohol Use History / Comment(s): Patient smoked for 17 years. Patient lives at home with his . He is independent. 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 - Past Family History Father Family Medical History: Cancer Additional Family Medical History / Comment(s): Father at age 65 from Bone cancer. Mother Family Medical History: CVA/TIA, Diabetes Mellitus Additional Family Medical History / Comment(s): Mother at age 67 from diabetes and CVA. Brother(s) Family Medical History: Coronary Artery Disease (CAD) Additional Family Medical History / Comment(s): Patient had one brother at age 86 from heart disease. Sister(s) Family Medical History: No Reported History Additional Family Medical History / Comment(s): Patient has one sister that is alive and well. Daughter(s) Family Medical History: No Reported History Additional Family Medical History / Comment(s): Patient has one daughter with no major medical problems. Son(s) Family Medical History: No Reported History Additional Family Medical History / Comment(s): Patient has one son with no major medical problems. Medications and Allergies Home Medications and Allergies Comment(s): Current Medications Hydrocodone Bitart/Acetaminophen (Iaeger 5-325) 1 each PO Q4HR PRN PRN Reason: Moderate Pain Last Admin: 03/19/19 08:28 Dose: 1 each Documented by: Albuterol/Ipratropium (Duoneb 0.5 Mg-3 Mg/3 Ml Soln) 3 ml INHALATION RT-QID [facility] Last Admin: 03/19/19 15:15 Dose: 3 ml Documented by: Aspirin (Aspirin) 81 mg PO DAILY [facility] Last Admin: 03/19/19 08:29 Dose: 81 mg Documented by: Atorvastatin Calcium (Lipitor) 40 mg PO DAILY [facility] Last Admin: 03/19/19 08:29 Dose: 40 mg Documented by: Budesonide/Formoterol Fumarate (Symbicort 160-4.5 Mcg Inhaler) 2 puff INHALATION RT-BID [facility] Last Admin: 03/19/19 08:06 Dose: 2 puff Documented by: Enoxaparin Sodium (Lovenox) 30 mg SQ DAILY [facility] Last Admin: 03/19/19 08:29 Dose: 30 mg Documented by: Famotidine (Pepcid) 20 mg PO DAILY [facility] Last Admin: 03/19/19 08:29 Dose: 20 mg Documented by: Glimepiride (Amaryl) 1 mg PO AC-BRKFST [facility] Last Admin: 03/19/19 08:29 Dose: 1 mg Documented by: Cefepime HCl 2 gm/ Sodium (Chloride) 100 mls @ 200 mls/hr IVPB DAILY [facility] Vancomycin HCl 1,500 mg/ (Sodium Chloride) 250 mls @ 125 mls/hr IVPB Q24H [facility] Insulin Aspart (Novolog) 0 unit SQ ACHS [facility]; Protocol Last Admin: 03/19/19 12:19 Dose: 3 unit Documented by: Levothyroxine Sodium (Synthroid) 50 mcg PO 0630 [facility] Last Admin: 03/19/19 08:29 Dose: 50 mcg Documented by: Loratadine (Claritin) 10 mg PO DAILY [facility] Last Admin: 03/19/19 08:29 Dose: 10 mg Documented by: Losartan Potassium (Cozaar) 50 mg PO DAILY [facility] Last Admin: 03/19/19 08:29 Dose: 50 mg Documented by: Metoprolol Tartrate (Lopressor) 12.5 mg PO BID [facility] Last Admin: 03/19/19 08:29 Dose: 12.5 mg Documented by: Naloxone HCl (Narcan) 0.2 mg IV Q2M PRN PRN Reason: Opioid Reversal Nitroglycerin (Nitrostat) 0.4 mg SUBLINGUAL Q5M PRN PRN Reason: Chest Pain Prednisone () 5 mg PO DAILY [facility] Tramadol HCl (Ultram) 50 mg PO TID PRN PRN Reason: MILD pain Home Medications Medication Instructions Recorded Confirmed Type Aspirin 81 mg PO DAILY 02/21/18 03/18/19 History Cetirizine HCl [Zyrtec] 10 mg PO DAILY 02/21/18 03/18/19 History Fluticasone/Salmeterol [Advair 1 puff INHALATION RT-BID 02/21/18 03/18/19 History 500-50 Diskus] Ipratropium/Albuterol Sulfate 1 puff INHALATION RT-QID 02/21/18 03/18/19 History [Combivent Respimat Inhaler] Atorvastatin [Lipitor] 40 mg PO DAILY #30 tab 02/23/18 03/18/19 Rx Losartan [Cozaar] 50 mg PO DAILY #30 tab 02/23/18 03/18/19 Rx Nitroglycerin Sl Tabs [Nitrostat] 0.4 mg SUBLINGUAL Q5M PRN #25 tab 02/23/18 03/18/19 Rx Metoprolol Tartrate [Lopressor] 12.5 mg PO BID 05/03/18 03/18/19 History predniSONE 5 mg PO DAILY 05/03/18 03/18/19 History Glimepiride [Amaryl] 1 mg PO AC-BRKFST 03/18/19 03/18/19 History Levothyroxine Sodium [Synthroid] 50 mcg PO DAILY 03/18/19 03/18/19 History Allergies Allergy/AdvReac Type Severity Reaction Status Date / Time No Known Allergies Allergy Verified 03/18/19 06:19 Physical Exam Vitals: Vital Signs Temp Pulse Pulse Pulse Resp BP BP 03/19/19 15:24 72 03/19/19 15:15 66 03/19/19 11:45 97.6 F 62 17 118/66 03/19/19 11:27 74 03/19/19 11:19 72 03/19/19 08:20 68 03/19/19 08:06 66 03/19/19 04:55 97.7 F 61 18 132/63 03/18/19 21:22 72 03/18/19 21:07 72 03/18/19 20:46 97.8 F 69 18 147/78 Pulse Ox 03/19/19 15:24 03/19/19 15:15 03/19/19 11:45 92 L 03/19/19 11:27 03/19/19 11:19 03/19/19 08:20 03/19/19 08:06 03/19/19 04:55 92 L 03/18/19 21:22 03/18/19 21:07 03/18/19 20:46 92 L Intake and Output 03/19/19 03/19/19 03/19/19 06:59 14:59 22:59 Intake Total 600 Output Total 1200 Balance -1200 600 Intake: Oral 600 Output: Urine 1200 Other: Voiding Method Ileal Conduit (Right) Ileal Conduit (Right) Ileal Conduit (Right) # Voids 1 HEENT: Anicteric conjunctiva are pink and moist nasal mucosa grossly intact without significant lesions, there is no thrush. Neck: The neck is supple without significant lymphadenopathy or thyromegaly. Lungs: Good bilateral air entry without significant crackles or wheezing. There is no significant bronchial sounds. There is no egophony or dullness. Heart: Regular rate and rhythm with an audible S1-S2, no S3 no S4. There is no significant murmur click or rub, PMI was nondisplaced. Abdomen: Positive bowel sounds soft and nontender without palpable masses or organomegaly. There was no guarding or rebound. Extremities: The upper extremities are intact Right hip is without difficulties. The patient is able to sit upright. He is able to tolerate rotation of the hip. External rotation though is the most painful. He is able to actively lift the leg off the floor with only minimal discomfort. There is a distinct warmth, erythema, fluctuance or tenderness to the hip area. Neuro: Awake alert oriented to person place and time. There are no acute new gross focal sensory motor deficits. Results CBC & Chem 7: 03/18/19 01:58 03/19/19 10:52 Labs: Abnormal Lab Results - Last 24 Hours (Table) 03/18/19 03/18/19 03/18/19 Range/Units 01:58 17:03 19:59 Creatinine (0.66-1.25) mg/dL POC Glucose (mg/dL) 191 H 323 H (75-99) mg/dL Urine Protein (Negative) Urine Glucose (UA) (Negative) Urine Blood (Negative) Ur Leukocyte Esterase (Negative) Urine RBC (0-5) /hpf Urine WBC (0-5) /hpf Urine WBC Clumps (None) /hpf Amorphous Sediment (None) /hpf Urine Bacteria (None) /hpf Urine Mucus (None) /hpf Urine Yeast (Budding) (None) /hpf Cyclic Citrull Peptide POSITIVE H (NEGATIVE) 03/19/19 03/19/19 03/19/19 Range/Units 06:50 10:09 10:52 Creatinine 2.08 H (0.66-1.25) mg/dL POC Glucose (mg/dL) 216 H (75-99) mg/dL Urine Protein 1+ H (Negative) Urine Glucose (UA) Trace H (Negative) Urine Blood Small H (Negative) Ur Leukocyte Esterase Large H (Negative) Urine RBC 18 H (0-5) /hpf Urine WBC >182 H (0-5) /hpf Urine WBC Clumps Occasional H (None) /hpf Amorphous Sediment Rare H (None) /hpf Urine Bacteria Many H (None) /hpf Urine Mucus Rare H (None) /hpf Urine Yeast (Budding) Few H (None) /hpf Cyclic Citrull Peptide (NEGATIVE) 03/19/19 Range/Units 11:18 Creatinine (0.66-1.25) mg/dL POC Glucose (mg/dL) 238 H (75-99) mg/dL Urine Protein (Negative) Urine Glucose (UA) (Negative) Urine Blood (Negative) Ur Leukocyte Esterase (Negative) Urine RBC (0-5) /hpf Urine WBC (0-5) /hpf Urine WBC Clumps (None) /hpf Amorphous Sediment (None) /hpf Urine Bacteria (None) /hpf Urine Mucus (None) /hpf Urine Yeast (Budding) (None) /hpf Cyclic Citrull Peptide (NEGATIVE) Microbiology - Last 24 Hours (Table) 03/18/19 20:52 Gram Stain - Preliminary Synovial Fluid Body Fluid Culture - Preliminary Laboratory Results WBC 13.3 k/uL (3.8-10.6) H 03/18/19 01:58 RBC 4.21 m/uL (4.30-5.90) L 03/18/19 01:58 Hgb 11.0 gm/dL (13.0-17.5) L 03/18/19 01:58 Hct 35.9 % (39.0-53.0) L 03/18/19 01:58 MCV 85.4 fL (80.0-100.0) 03/18/19 01:58 MCH 26.0 pg (25.0-35.0) 03/18/19 01:58 MCHC 30.5 g/dL (31.0-37.0) L 03/18/19 01:58 RDW 14.7 % (11.5-15.5) 03/18/19 01:58 Plt Count 251 k/uL (150-450) 03/18/19 01:58 Neutrophils % 81 % 03/18/19 01:58 Lymphocytes % 9 % 03/18/19 01:58 Monocytes % 6 % 03/18/19 01:58 Eosinophils % 1 % 03/18/19 01:58 Basophils % 0 % 03/18/19 01:58 Neutrophils # 10.9 k/uL (1.3-7.7) H 03/18/19 01:58 Lymphocytes # 1.3 k/uL (1.0-4.8) 03/18/19 01:58 Monocytes # 0.8 k/uL (0-1.0) 03/18/19 01:58 Eosinophils # 0.2 k/uL (0-0.7) 03/18/19 01:58 Basophils # 0.1 k/uL (0-0.2) 03/18/19 01:58 Hypochromasia Slight 03/18/19 01:58 ESR 18 mm/hr (0-15) H 03/18/19 01:58 Sodium 139 mmol/L (137-145) 03/18/19 01:58 Potassium 4.6 mmol/L (3.5-5.1) 03/18/19 01:58 Chloride 109 mmol/L (98-107) H 03/18/19 01:58 Carbon Dioxide 18 mmol/L (22-30) L 03/18/19 01:58 Anion Gap 12 mmol/L 03/18/19 01:58 BUN 44 mg/dL (9-20) H 03/18/19 01:58 Creatinine 2.08 mg/dL (0.66-1.25) H 03/19/19 10:52 Est GFR (CKD-EPI)AfAm 32 (>60 ml/min/1.73 sqM) 03/19/19 10:52 Est GFR (CKD-EPI)NonAf 28 (>60 ml/min/1.73 sqM) 03/19/19 10:52 Glucose 92 mg/dL (74-99) 03/18/19 01:58 POC Glucose (mg/dL) 238 mg/dL (75-99) H 03/19/19 11:18 POC Glu Sales Project Coordinator ID Nnamdi Jefferson 03/19/19 11:18 Uric Acid 7.9 mg/dL (3.5-8.5) 03/18/19 01:58 Calcium 8.4 mg/dL (8.4-10.2) 03/18/19 01:58 Magnesium 1.7 mg/dL (1.6-2.3) 03/18/19 01:58 C-Reactive Protein 31.1 mg/L (<10.0) H 03/18/19 01:58 Urine Color Yellow 03/19/19 10:09 Urine Appearance Cloudy (Clear) 03/19/19 10:09 Urine pH 5.5 (5.0-8.0) 03/19/19 10:09 Ur Specific [place] 1.017 (1.001-1.035) 03/19/19 10:09 Urine Protein 1+ (Negative) H 03/19/19 10:09 Urine Glucose (UA) Trace (Negative) H 03/19/19 10:09 Urine Ketones Negative (Negative) 03/19/19 10:09 Urine Blood Small (Negative) H 03/19/19 10:09 Urine Nitrite Negative (Negative) 03/19/19 10:09 Urine Bilirubin Negative (Negative) 03/19/19 10:09 Urine Urobilinogen <2.0 mg/dL (<2.0) 03/19/19 10:09 Ur Leukocyte Esterase Large (Negative) H 03/19/19 10:09 Urine RBC 18 /hpf (0-5) H 03/19/19 10:09 Urine WBC >182 /hpf (0-5) H 03/19/19 10:09 Urine WBC Clumps Occasional /hpf (None) H 03/19/19 10:09 Ur Squamous Epith Cells 1 /hpf (0-4) 03/19/19 10:09 Amorphous Sediment Rare /hpf (None) H 03/19/19 10:09 Urine Bacteria Many /hpf (None) H 03/19/19 10:09 Urine Mucus Rare /hpf (None) H 03/19/19 10:09 Urine Yeast (Budding) Few /hpf (None) H 03/19/19 10:09 Fluid Source Synovial 03/18/19 20:52 Fluid Color Yellow 03/18/19 20:52 Fluid Appearance Cloudy 03/18/19 20:52 Fluid RBC 1400 /uL 03/18/19 20:52 Fluid Nucleated Cells [id number] /uL 03/18/19 20:52 Fluid Polynuclear WBCs 89 % 03/18/19 20:52 Fluid Mononuclear WBCs 11 % 03/18/19 20:52 Synovial Crystals None Seen (None Seen) 03/18/19 20:52 Cycl Citrul Peptide IgG >300.0 U/mL 03/18/19 01:58 Cyclic Citrull Peptide POSITIVE (NEGATIVE) H 03/18/19 01:58 Assessment and Plan (1) Left hip pain Current Visit: Yes Status: Acute Code(s): M25.552 - PAIN IN LEFT HIP SNOMED Code(s): 25408976 (2) Effusion of left hip Current Visit: Yes Status: Acute Code(s): M25.452 - EFFUSION, LEFT HIP SNOMED Code(s): 329780492328505 (3) Rheumatoid arthritis Narrative/Plan: 88-year-old male who appears younger than his stated age, 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 He relates he is doing relatively well to the sudden onset of pain into his left hip H progress rapidly admitted difficult for him to walk. The family was concerned because of his history of prior urinary infections that his weakness and difficulty walking could be from underlying infection and was brought to hospital. Patient did have some imaging study that showed evidence of fluid within the left hip and an aspiration is been performed by radiology. The fluid is somewhat abnormal in with at the consult was requested. It is tender is a concern to a septic arthritis of the joints. The patient however is rapidly improving at this point in time likely with the addition of steroid therapy. The patient does have the evidence of some recently diagnosed rheumatoid arthritis and an acute inflammation of the joint from rheumatoid arthritis is likely. However at this time await further results of the aspiration from the joint to make the final plans. The patient and family are informed of our current data and culture from the hip will be extremely important to determine possibility of underlying infection. Patient was initiated antibiotic therapy of cefepime and vancomycin. Cefepime will be discontinued. The sed rate is 18 the CRP is 33, both seem quite low for an infected joint. Current Visit: Yes Status: Acute Code(s): M06.9 - RHEUMATOID ARTHRITIS, UNSPECIFIED SNOMED Code(s): 41710980
[2019-03-19 17:01] LABS: Glucose,Whole Blood 260 mg/dL (75-99)
[2019-03-19 20:03] LABS: Glucose,Whole Blood 272 mg/dL (75-99)
[2019-03-19 22:20] VITALS: RESP 16
[2019-03-20] MEDS: LEVOTHYROXINE 50 MCG TAB PO SCH (05:26)
[2019-03-20 07:06] LABS: Glucose,Whole Blood 126 mg/dL (75-99)
[2019-03-20 07:18] LABS: HGB 11.4 gm/dL (13.0-17.5); Hypochromasia Moderate; MCH 26.5 pg (25.0-35.0); MCHC 31.6 g/dL (31.0-37.0); MCV 83.8 fL (80.0-100.0); Mean Platelet Volume 6.4; Platelet Count 300 k/uL (150-450); RBC 4.29 m/uL (4.30-5.90); RDW 14.4 % (11.5-15.5); WBC 24.4 k/uL (3.8-10.6)
[2019-03-20 07:33] LABS: Potassium 5.2 mmol/L (3.5-5.1)
[2019-03-20] MEDS: IPRATROPIUM-ALBUTEROL 3 ML NEB INHALATION SCH ×4 (07:47→19:52)
[2019-03-20] MEDS: SYMBICORT 160-4.5 MCG INHALER INHALATION SCH ×2 (07:47→19:52)
[2019-03-20] MEDS: HYDROcodone/APAP 5-325MG 1 EACH TAB PO PRN (07:59)
[2019-03-20] MEDS: LORATADINE 10 MG TAB PO SCH (08:00)
[2019-03-20] MEDS: ATORVASTATIN 40 MG TAB PO SCH (08:00)
[2019-03-20] MEDS: FAMOTIDINE 20 MG TAB PO SCH (08:00)
[2019-03-20] MEDS: LOSARTAN 50 MG TAB PO SCH (08:00)
[2019-03-20] MEDS: INSULIN ASPART (NovoLOG) 100 UNIT/ML VIAL SQ SCH ×4 (08:00→20:05)
[2019-03-20] MEDS: METOPROLOL TARTRATE 12.5 MG TAB PO SCH ×2 (08:00→20:05)
[2019-03-20] MEDS: ENOXAPARIN 30 MG/0.3 ML SYRINGE SQ SCH (08:00)
[2019-03-20] MEDS: predniSONE 5 MG TAB PO SCH (08:00)
[2019-03-20] MEDS: GLIMEPIRIDE 1 MG TAB PO SCH (08:00)
[2019-03-20] MEDS: ASPIRIN 81 MG PO SCH (08:00)
[2019-03-20] MEDS ORDERED: CEFEPIME 2 GM in SODIUM CHLORIDE 0.9% 100 ML IVPB SCH (09:00)
--- NOTE | 2019-03-20 10:04 | P.PN ---
Subjective Progress Note Date: 03/20/19 Principal diagnosis: Left hip pain The patient was seen and examined at the bedside. He is currently sitting in a chair at the bedside. He underwent a ultrasound-guided aspiration of his left hip on Thursday night. He states continued improvement of his hip pain but does have some groin pain this morning. He is now able to bear weight and ambulate in the hallway. No new complaints today. The patient was evaluated by Dr. Subramanian yesterday. Cultures are currently negative. Objective - Vital Signs Vital signs: Vital Signs Temp 97.6 F 03/20/19 05:00 Pulse 64 03/20/19 08:06 Resp 16 03/20/19 05:00 BP 137/61 03/20/19 05:00 Pulse Ox 96 03/20/19 05:00 Intake & Output 03/19/19 03/20/19 03/20/19 18:59 06:59 18:59 Intake Total 600 590 Balance 600 590 Intake: Oral 600 590 Other: Voiding Method Ileal Conduit (Right) Ileal Conduit (Right) Ileal Conduit (Right) # Voids 1 1 - Exam The patient is an 88-year-old male who is in acute distress. He is alert and oriented 3. No tenderness to the lateral hip. There is some groin pain on palpation. Patient is able to actually move the hip with mild discomfort which has improved since admission. Bilateral calves are soft and nontender. Good foot and ankle motion. Neurological and circulatory status is intact. - Labs CBC & Chem 7: 03/20/19 06:37 03/20/19 06:37 Labs: Abnormal Lab Results - Last 24 Hours (Table) 03/19/19 03/19/19 03/19/19 Range/Units 10:09 10:52 11:18 WBC (3.8-10.6) k/uL RBC (4.30-5.90) m/uL Hgb (13.0-17.5) gm/dL Hct (39.0-53.0) % Potassium (3.5-5.1) mmol/L BUN (9-20) mg/dL Creatinine 2.08 H (0.66-1.25) mg/dL Glucose (74-99) mg/dL POC Glucose (mg/dL) 238 H (75-99) mg/dL Urine Protein 1+ H (Negative) Urine Glucose (UA) Trace H (Negative) Urine Blood Small H (Negative) Ur Leukocyte Esterase Large H (Negative) Urine RBC 18 H (0-5) /hpf Urine WBC >182 H (0-5) /hpf Urine WBC Clumps Occasional H (None) /hpf Amorphous Sediment Rare H (None) /hpf Urine Bacteria Many H (None) /hpf Urine Mucus Rare H (None) /hpf Urine Yeast (Budding) Few H (None) /hpf 03/19/19 03/19/19 03/20/19 Range/Units 17:00 20:02 06:37 WBC 24.4 H (3.8-10.6) k/uL RBC 4.29 L (4.30-5.90) m/uL Hgb 11.4 L (13.0-17.5) gm/dL Hct 36.0 L (39.0-53.0) % Potassium (3.5-5.1) mmol/L BUN (9-20) mg/dL Creatinine (0.66-1.25) mg/dL Glucose (74-99) mg/dL POC Glucose (mg/dL) 260 H 272 H (75-99) mg/dL Urine Protein (Negative) Urine Glucose (UA) (Negative) Urine Blood (Negative) Ur Leukocyte Esterase (Negative) Urine RBC (0-5) /hpf Urine WBC (0-5) /hpf Urine WBC Clumps (None) /hpf Amorphous Sediment (None) /hpf Urine Bacteria (None) /hpf Urine Mucus (None) /hpf Urine Yeast (Budding) (None) /hpf 03/20/19 03/20/19 Range/Units 06:37 07:05 WBC (3.8-10.6) k/uL RBC (4.30-5.90) m/uL Hgb (13.0-17.5) gm/dL Hct (39.0-53.0) % Potassium 5.2 H (3.5-5.1) mmol/L BUN 52 H (9-20) mg/dL Creatinine 2.25 H (0.66-1.25) mg/dL Glucose 116 H (74-99) mg/dL POC Glucose (mg/dL) 126 H (75-99) mg/dL Urine Protein (Negative) Urine Glucose (UA) (Negative) Urine Blood (Negative) Ur Leukocyte Esterase (Negative) Urine RBC (0-5) /hpf Urine WBC (0-5) /hpf Urine WBC Clumps (None) /hpf Amorphous Sediment (None) /hpf Urine Bacteria (None) /hpf Urine Mucus (None) /hpf Urine Yeast (Budding) (None) /hpf Microbiology - Last 24 Hours (Table) 03/19/19 10:09 Urine Culture - Preliminary Urine,Voided 03/18/19 20:52 Gram Stain - Preliminary Synovial Fluid Body Fluid Culture - Preliminary Assessment and Plan (1) Left hip pain Current Visit: Yes Status: Acute Code(s): M25.552 - PAIN IN LEFT HIP SNOMED Code(s): 78402612 (2) Rheumatoid arthritis Current Visit: Yes Status: Acute Code(s): M06.9 - RHEUMATOID ARTHRITIS, UNSPECIFIED SNOMED Code(s): 15672719 (3) Gout Current Visit: Yes Status: Acute Code(s): M10.9 - GOUT, UNSPECIFIED SNOMED Code(s): 71622487 Plan: The clinical findings were discussed with the patient. The case was discussed with Dr. Fransisco Marie. No surgical intervention is planned at this time. Continue pain control as needed. We will await final culture results. Continue PT. We will continue to follow along with infectious disease. If cultures remain negative, the patient may be discharged home in the next 1-2 days.
[2019-03-20] MEDS: VANCOMYCIN 1,500 MG in SODIUM CHLORIDE 0.9% 250 ML IVPB SCH (11:15)
[2019-03-20 11:30] LABS: Glucose,Whole Blood 124 mg/dL (75-99)
--- NOTE | 2019-03-20 15:21 | P.PN ---
Subjective Progress Note Date: 03/20/19 This is an 88-year-old male one of Dr. Alok Ospina with a previous medical history significant for hypertension and hypertensive cardiovascular disease with left ventricular hypertrophy, CAD post PCI of the first obtuse marginal and LAD with 2 drug-eluting stent placement, carotid artery disease status post bilateral carotid endarterectomies, hyperlipidemia, bladder cancer status post urostomy, hypothyroidism, COPD rheumatoid arthritis, hyperlipidemia, history of pancreatitis and history of C. difficile colitis, chronic kidney disease stage IIIB, diabetes mellitus type 2. Patient is complaining of left hip pain was a sudden onset yesterday. He denies any injury or fall. He was taking Tylenol at home. He is not normally using a walker or cane for ambulation. Patient presented to [facility] emergency center for evaluation. He was afebrile, heart rate 60, blood pressure initially 187/87, pulse ox 96% on room air. White count 13.3, hemoglobin 11. BUN 44 and creatinine 2.05. Sodium 139, potassium 4.6, chloride 109, CO2 18. Left hip x- ray shows no acute findings. Patient was given Dilaudid, Valium and morphine and placed on the MedSur floor, orthopedic consult requested. Subsequently, CT left hip showed no acute fracture or traumatic malalignment. Small left hip joint effusion which is nonspecific. Patient has been seen by orthopedics with no plan for any surgical intervention. Expect this is pain from rheumatoid arthritis. 03/19: MRI of the left hip revealed complex small left small effusion and extensive intramuscular and suctioning his edema surrounding the left hip girdle musculature predominating in the adductor musculature. Given extensive myositis anicteric internal complexity of the joint effusions septic joint effusion should be considered. Correlate. No discrete abscesses seen. Moderate bilateral femoral acetabular arthropathy. Last evening, patient underwent an ultrasound-guided aspiration of the left hip. Synovial fluid was cloudy, RBCs 1400, nucleated cells 75,900, Caterina nuclear 89%, mononuclear 11%, no crystals. Based on this information, patient will be started on IV antibiotics with cefepime and vancomycin, Solu-Medrol will be discontinued and patient will be resumed back on his oral prednisone at home dose, consult added for Dr. Subramanian regarding possible septic joint. Urine specimen will be obtained from urostomy. 03/20: Patient's pain to his left hip is significantly improved. He has been afebrile, heart rate 56, blood pressure 113/64, pulse ox 96% on room air. Leukocytosis has worsened most likely secondary to steroids which were switched back to his baseline prednisone yesterday. BUN 52 and creatinine 2.25, potassium 5.2. Blood sugars are running anywhere between 124-72 with improvemen t today. Again hyperglycemia secondary to steroid use. Urinalysis reveals blood small, leukoesterase large, the PVCs greater than 182, bacteria many. Patient will be started on Rocephin for urinary tract infection and urine culture is in progress. Synovial fluid culture is in progress as well. Dr. Subramanian has evaluated the patient and discontinue cefepime with continued vancomycin pharmacy dosing. Objective - Vital Signs Vital signs: Vital Signs Temp 97.6 F 03/20/19 05:00 Pulse 51 L 03/20/19 05:00 Resp 16 03/20/19 05:00 BP 137/61 03/20/19 05:00 Pulse Ox 96 03/20/19 05:00 Intake & Output 03/19/19 03/20/19 03/20/19 18:59 06:59 18:59 Intake Total 600 590 Balance 600 590 Intake: Oral 600 590 Other: Voiding Method Ileal Conduit (Right) Ileal Conduit (Right) # Voids 1 1 - Exam Review of Systems Constitutional: Denies anorexia, Denies chills, Denies fatigue, Denies fever, Denies lethargy, Denies malaise, Denies poor appetite, Denies weakness, Denies weight loss Ears, nose, mouth and throat: Denies dysphagia, Denies nasal congestion, Denies nasal discharge, Denies vertigo Cardiovascular: Denies chest pain, Denies dyspnea on exertion, Denies edema, Denies leg edema, Denies lightheadedness, Denies orthopnea, Denies shortness of breath, Denies syncope Respiratory: Denies congestion, Denies cough, Denies cough with sputum, Denies dyspnea, Denies excessive sputum, Denies hemoptysis, Denies home oxygen Gastrointestinal: Denies abdominal pain, Denies diarrhea, Denies loss of appetit e, Denies nausea, Denies vomiting Genitourinary: Denies urinary frequency, Denies urinary retention--urostomy tube Musculoskeletal: Reports gait dysfunction, Denies frequent falls, Denies low back pain, Denies muscle weakness, Denies myalgias Musculoskeletal: left: hip pain, hip stiffness Integumentary: Denies pruritus, Denies rash, Denies unusual bruising, Denies wounds Neurological: Denies aphasia, Denies change in mentation, Denies change in speech, Denies confusion, Denies head injury, Denies headaches, Denies numbness, Denies seizures, Denies syncope, Denies weakness Psychiatric: Denies anxiety, Denies depression Endocrine: Denies fatigue, Denies weight change - Constitutional General appearance: average body habitus, mild distress - EENT Eyes: anicteric sclerae, EOMI, PERRLA, no ptosis, no scleral icterus, normal appearance ENT: hearing grossly normal, NA/AT, normal oropharynx, no thrush Ears: bilateral: normal - Neck Neck: no lymphadenopathy, normal ROM, no rigidity, no stridor, no thyromegaly Carotids: bilateral: upstroke delayed Thyroid: bilateral: normal size - Respiratory Respiratory: bilateral: diminished, prolonged expiration, negative: dullness, rales, rhonchi, wheezing - Cardiovascular Rhythm: regular Heart sounds: normal: S1, S2 Abnormal Heart Sounds: systolic murmur, no S3 Gallop - Gastrointestinal General gastrointestinal: normal bowel sounds, soft, no splenomegaly, no tenderness, no umbilical hernia, ventral hernia (there is urostomy with hernia.) - Integumentary Integumentary: normal, normal turgor - Neurologic Neurologic: CNII-XII intact - Musculoskeletal Musculoskeletal: generalized weakness, strength equal bilaterally Improve range of motion to the left hip - Psychiatric Psychiatric: A&O x's 3, appropriate affect, intact judgment & insight - Labs CBC & Chem 7: 03/20/19 06:37 03/20/19 06:37 Labs: Abnormal Lab Results - Last 24 Hours (Table) 03/19/19 03/19/19 03/19/19 Range/Units 10:09 10:52 11:18 WBC (3.8-10.6) k/uL RBC (4.30-5.90) m/uL Hgb (13.0-17.5) gm/dL Hct (39.0-53.0) % Creatinine 2.08 H (0.66-1.25) mg/dL POC Glucose (mg/dL) 238 H (75-99) mg/dL Urine Protein 1+ H (Negative) Urine Glucose (UA) Trace H (Negative) Urine Blood Small H (Negative) Ur Leukocyte Esterase Large H (Negative) Urine RBC 18 H (0-5) /hpf Urine WBC >182 H (0-5) /hpf Urine WBC Clumps Occasional H (None) /hpf Amorphous Sediment Rare H (None) /hpf Urine Bacteria Many H (None) /hpf Urine Mucus Rare H (None) /hpf Urine Yeast (Budding) Few H (None) /hpf 03/19/19 03/19/19 03/20/19 Range/Units 17:00 20:02 06:37 WBC 24.4 H (3.8-10.6) k/uL RBC 4.29 L (4.30-5.90) m/uL Hgb 11.4 L (13.0-17.5) gm/dL Hct 36.0 L (39.0-53.0) % Creatinine (0.66-1.25) mg/dL POC Glucose (mg/dL) 260 H 272 H (75-99) mg/dL Urine Protein (Negative) Urine Glucose (UA) (Negative) Urine Blood (Negative) Ur Leukocyte Esterase (Negative) Urine RBC (0-5) /hpf Urine WBC (0-5) /hpf Urine WBC Clumps (None) /hpf Amorphous Sediment (None) /hpf Urine Bacteria (None) /hpf Urine Mucus (None) /hpf Urine Yeast (Budding) (None) /hpf 03/20/19 Range/Units 07:05 WBC (3.8-10.6) k/uL RBC (4.30-5.90) m/uL Hgb (13.0-17.5) gm/dL Hct (39.0-53.0) % Creatinine (0.66-1.25) mg/dL POC Glucose (mg/dL) 126 H (75-99) mg/dL Urine Protein (Negative) Urine Glucose (UA) (Negative) Urine Blood (Negative) Ur Leukocyte Esterase (Negative) Urine RBC (0-5) /hpf Urine WBC (0-5) /hpf Urine WBC Clumps (None) /hpf Amorphous Sediment (None) /hpf Urine Bacteria (None) /hpf Urine Mucus (None) /hpf Urine Yeast (Budding) (None) /hpf Microbiology - Last 24 Hours (Table) 03/19/19 10:09 Urine Culture - Preliminary Urine,Voided 03/18/19 20:52 Gram Stain - Preliminary Synovial Fluid Body Fluid Culture - Preliminary Assessment and Plan Plan: 1. Left hip pain secondary to possible septic joint, status post aspiration. MRI as above. Solu-Medrol will be discontinued and patient resumed on his oral prednisone. Continue vancomycin. Consult with Dr. Subramanian appreciated. Orthopedic consult appreciated. No plan for surgical intervention. 2. Chronic kidney disease stage IIIB. 3. Rheumatoid arthritis. Continue prednisone 5 mg daily. 4. CAD post PCI of the LAD and OM1. Continue aspirin 81 mg once every day, metoprolol 12.5 mg orally twice every day, Lipitor 40 mg orally once every day. 5. Hypertension and hypertensive cardiovascular disease. Continue patient on metoprolol 12.5 mg orally twice every day and losartan 50 mg orally once every day. 6. Hyperlipidemia. Continue Lipitor 40 mg orally once every day. 7. COPD. Currently the patient on Advair Diskus 250/50 one puff inhalation twice every day, oxygen as needed. 8. Diabetes mellitus type 2 uncontrolled with hyperglycemia secondary to steroids. Continue glimepiride 1 mg daily. 9. Hypothyroidism. Continue levothyroxine 50 g daily 10. History of bladder cancer status post urostomy, stable. 11. Osteoarthritis, generalized. Stable at this time. 12. Carotid artery disease status post bilateral carotid endarterectomies. 13. History of C. difficile colitis. No active diarrhea. 14. GI prophylaxis. Continue patient on PPI. 15. DVT prophylaxis. Lovenox 30 mg subcutaneously once every day. Discharge plan: PT has recommended home with homecare. Impression and plan of care have been directed as dictated by the signing physician. Melvina Solorzano nurse practitioner acting as scribe for signing physician.
[2019-03-20 17:06] LABS: Glucose,Whole Blood 242 mg/dL (75-99)
[2019-03-20 20:03] LABS: Glucose,Whole Blood 273 mg/dL (75-99)
[2019-03-21] MEDS: LEVOTHYROXINE 50 MCG TAB PO SCH (05:20)
[2019-03-21] MEDS: INSULIN ASPART (NovoLOG) 100 UNIT/ML VIAL SQ SCH ×2 (07:28→11:16)
[2019-03-21] MEDS: GLIMEPIRIDE 1 MG TAB PO SCH (07:28)
[2019-03-21] MEDS: predniSONE 5 MG TAB PO SCH (07:29)
[2019-03-21] MEDS: LOSARTAN 50 MG TAB PO SCH (07:29)
[2019-03-21] MEDS: ASPIRIN 81 MG PO SCH (07:29)
[2019-03-21] MEDS: ENOXAPARIN 30 MG/0.3 ML SYRINGE SQ SCH (07:29)
[2019-03-21] MEDS: FAMOTIDINE 20 MG TAB PO SCH (07:29)
[2019-03-21] MEDS: ATORVASTATIN 40 MG TAB PO SCH (07:29)
[2019-03-21] MEDS: LORATADINE 10 MG TAB PO SCH (07:29)
[2019-03-21] MEDS: METOPROLOL TARTRATE 12.5 MG TAB PO SCH (07:29)
[2019-03-21] MEDS: HYDROcodone/APAP 5-325MG 1 EACH TAB PO PRN (07:32)
[2019-03-21 07:34] LABS: Glucose,Whole Blood 49 mg/dL (75-99)
[2019-03-21 07:45] LABS: Glucose,Whole Blood 77 mg/dL (75-99)
[2019-03-21 08:26] LABS: Calcium 8.7 mg/dL (8.4-10.2); Potassium 4.8 mmol/L (3.5-5.1)
[2019-03-21 08:30] LABS: HCT 37.3 % (39.0-53.0); HGB 11.8 gm/dL (13.0-17.5); MCH 26.7 pg (25.0-35.0); MCHC 31.7 g/dL (31.0-37.0); MCV 84.3 fL (80.0-100.0); Mean Platelet Volume 8.2; Platelet Count 235 k/uL (150-450); RBC 4.42 m/uL (4.30-5.90); RDW 15.2 % (11.5-15.5); WBC 13.6 k/uL (3.8-10.6)
[2019-03-21] MEDS: IPRATROPIUM-ALBUTEROL 3 ML NEB INHALATION SCH ×3 (08:41→12:05)
[2019-03-21] MEDS: SYMBICORT 160-4.5 MCG INHALER INHALATION SCH (08:41)
[2019-03-21 09:04] LABS: Glucose,Whole Blood 160 mg/dL (75-99)
--- NOTE | 2019-03-21 09:28 | P.PN ---
Subjective Progress Note Date: 03/21/19 Principal diagnosis: Left hip pain The patient was seen and examined at the bedside. He is currently sitting in a chair at the bedside. He underwent a ultrasound-guided aspiration of his left hip on Thursday night. He states continued improvement of his hip pain but does have some groin pain this morning. He is now able to bear weight and ambulate in the hallway. No new complaints today. The patient was evaluated by Dr. Subramanian. Cultures are currently negative after 48 hours. Objective - Vital Signs Vital signs: Vital Signs Temp 97.8 F 03/21/19 05:00 Pulse 60 03/21/19 08:52 Resp 16 03/21/19 05:00 BP 197/88 03/21/19 05:00 Pulse Ox 96 03/21/19 05:00 Intake & Output 03/20/19 03/21/19 03/21/19 18:59 06:59 18:59 Intake Total 1200 1180 Balance 1200 1180 Intake: Intake, IV Titration 300 Amount Vancomycin 1,500 mg In 250 Sodium Chloride 0.9% 250 ml @ 125 mls/hr IVPB Q24H JULIETH Rx#:[id number] cefTRIAXone 1 gm In 50 Sodium Chloride 0.9% 50 ml @ 100 mls/hr IVPB Q24HR JULIETH Rx#:[id number] Oral 900 1180 Other: Voiding Method Ileal Conduit (Right) Ileal Conduit (Right) Ileal Conduit (Right) # Voids 1 - Exam The patient is an 88-year-old male who is in acute distress. He is alert and oriented 3. No tenderness to the lateral hip. There is some groin pain on palpation. Patient is able to actually move the hip with mild discomfort which has improved since admission. Bilateral calves are soft and nontender. Good foot and ankle motion. Neurological and circulatory status is intact. - Labs CBC & Chem 7: 03/21/19 06:53 03/21/19 06:53 Labs: Abnormal Lab Results - Last 24 Hours (Table) 03/20/19 03/20/19 03/20/19 Range/Units 11:18 17:05 20:02 WBC (3.8-10.6) k/uL Hgb (13.0-17.5) gm/dL Hct (39.0-53.0) % Chloride (98-107) mmol/L BUN (9-20) mg/dL Creatinine (0.66-1.25) mg/dL Glucose (74-99) mg/dL POC Glucose (mg/dL) 124 H 242 H 273 H (75-99) mg/dL 03/21/19 03/21/19 03/21/19 Range/Units 06:53 06:53 07:27 WBC 13.6 H (3.8-10.6) k/uL Hgb 11.8 L (13.0-17.5) gm/dL Hct 37.3 L (39.0-53.0) % Chloride 113 H (98-107) mmol/L BUN 51 H (9-20) mg/dL Creatinine 2.00 H (0.66-1.25) mg/dL Glucose 41 L* (74-99) mg/dL POC Glucose (mg/dL) 49 L (75-99) mg/dL 03/21/19 Range/Units 09:03 WBC (3.8-10.6) k/uL Hgb (13.0-17.5) gm/dL Hct (39.0-53.0) % Chloride (98-107) mmol/L BUN (9-20) mg/dL Creatinine (0.66-1.25) mg/dL Glucose (74-99) mg/dL POC Glucose (mg/dL) 160 H (75-99) mg/dL Microbiology - Last 24 Hours (Table) 03/18/19 20:52 Gram Stain - Preliminary Synovial Fluid Body Fluid Culture - Preliminary 03/19/19 10:09 Urine Culture - Preliminary Urine,Voided Group D Enterococcus Assessment and Plan (1) Left hip pain Current Visit: Yes Status: Acute Code(s): M25.552 - PAIN IN LEFT HIP SNOMED Code(s): 70320278 (2) Rheumatoid arthritis Current Visit: Yes Status: Acute Code(s): M06.9 - RHEUMATOID ARTHRITIS, UNSPECIFIED SNOMED Code(s): 46823092 (3) Gout Current Visit: Yes Status: Acute Code(s): M10.9 - GOUT, UNSPECIFIED SNOMED Code(s): 93459166 Plan: The clinical findings were discussed with the patient. The case was discussed with Dr. Fransisco Marie. No surgical intervention is planned at this time. Continue pain control as needed. Culture from the hip aspiration are negative. Urine culture was positive. Continue PT. From an orthopedic standpoint, he may be discharged home if ok with infectious disease. He will follow up in our office as an outpatient in one week.
[2019-03-21] MEDS ORDERED: PIOGLITAZONE 30 MG TAB PO SCH (11:00)
[2019-03-21 11:13] LABS: Glucose,Whole Blood 117 mg/dL (75-99)
[2019-03-21] MEDS: VANCOMYCIN 1,500 MG in SODIUM CHLORIDE 0.9% 250 ML IVPB SCH (12:11)
[2019-03-21 12:58] VITALS: BP 136/61; PULSE 52; TEMP 97.7
--- NOTE | 2019-03-21 15:11 | P.DS ---
Providers Date of admission: 03/19/19 08:46 Attending physician: Chasidy Bishop Consults: 03/18/19 07:06 Consult Physician Routine Consulting Provider: Fransisco Marie Consult Reason/Comments: hip pain. Cannot ambulate Do you want consulting provider notified?: Yes 03/19/19 10:07 Consult Physician Routine Consulting Provider: Nikhil Subramanian Reason/Comments: septic left hip Do you want consulting provider notified?: Yes Primary care physician: Alok Ospina [facility] Course: This is an 88-year-old male one of Dr. Alok Ospina with a previous medical history significant for hypertension and hypertensive cardiovascular disease with left ventricular hypertrophy, CAD post PCI of the first obtuse marginal and LAD with 2 drug-eluting stent placement, carotid artery disease s tatus post bilateral carotid endarterectomies, hyperlipidemia, bladder cancer status post urostomy, hypothyroidism, COPD rheumatoid arthritis, hyperlipidemia, history of pancreatitis and history of C. difficile colitis, chronic kidney disease stage IIIB, diabetes mellitus type 2. Patient is complaining of left hip pain was a sudden onset yesterday. He denies any injury or fall. He was taking Tylenol at home. He is not normally using a walker or cane for ambulation. Patient presented to [facility] emergency center for evaluation. He was afebrile, heart rate 60, blood pressure initially 187/87, pulse ox 96% on room air. White count 13.3, hemoglobin 11. BUN 44 and creatinine 2.05. Sodium 139, potassium 4.6, chloride 109, CO2 18. Left hip x- ray shows no acute findings. Patient was given Dilaudid, Valium and morphine and placed on the MedSur floor, orthopedic consult requested. Subsequently, CT left hip showed no acute fracture or traumatic malalignment. Small left hip joint effusion which is nonspecific. Patient has been seen by orthopedics with no plan for any surgical intervention. Expect this is pain from rheumatoid arthritis. 03/19: MRI of the left hip revealed complex small left small effusion and extensive intramuscular and suctioning his edema surrounding the left hip girdle musculature predominating in the adductor musculature. Given extensive myositis anicteric internal complexity of the joint effusions septic joint effusion should be considered. Correlate. No discrete abscesses seen. Moderate bilateral femoral acetabular arthropathy. Last evening, patient underwent an ultrasound-guided aspiration of the left hip. Synovial fluid was cloudy, RBCs 1400, nucleated cells 75,900, Caterina nuclear 89%, mononuclear 11%, no crystals. Based on this information, patient will be started on IV antibiotics with cefepime and vancomycin, Solu-Medrol will be discontinued and patient will be resumed back on his oral prednisone at home dose, consult added for Dr. Subramanian regarding possible septic joint. Urine specimen will be obtained from urostomy. 03/20: Patient's pain to his left hip is significantly improved. He has been afebrile, heart rate 56, blood pressure 113/64, pulse ox 96% on room air. Leukocytosis has worsened most likely secondary to steroids which were switched back to his baseline prednisone yesterday. BUN 52 and creatinine 2.25, potassium 5.2. Blood sugars are running anywhere between 124-72 with improvement today. Again hyperglycemia secondary to steroid use. Urinalysis reveals blood small, leukoesterase large, the PVCs greater than 182, bacteria many. Patient will be started on Rocephin for urinary tract infection and urine culture is in progress. Synovial fluid culture is in progress as well. Dr. Clyde govea has evaluated the patient and discontinue cefepime with continued vancomycin pharmacy dosing. patient examined bedside complains of left hip pain but is able to bear weight on the left hip tenderness actively walking without any difficulty. No episodes of fever in the past 24 hours cultures are negative for the 48 hours urine culture positive for enterococcus. Patient can be switched to oral antibiotics. Patient's joint effusion likely secondary to rheumatoid arthritis will follow with primary care physician as outpatient. Will be given a prescription of Augmentin. Patient had a hypoglycemic event on Amaryl will switch the medication to Actos Discharge diagnoses 1. Left hip pain secondary to joint effusion. Septic joint ruled out 2. Chronic kidney disease stage IIIB. 3. Rheumatoid arthritis. 4. CAD post PCI of the LAD and OM1. 5. Hypertension and hypertensive cardiovascular disease. 6. Hyperlipidemia. 7. COPD. 8. Diabetes mellitus type 2 uncontrolled 9. Hypothyroidism 10. History of bladder cancer status post urostomy, stable 11. Osteoarthritis, generalized. 12. Carotid artery disease status post bilateral carotid endarterectomies. 13. History of C. difficile colitis. See a copy of discharge to Dr. Ospina Disposition home with home care Plan - Discharge Summary Discharge Rx Participant: No New Discharge Prescriptions: New Pioglitazone [Actos] 30 mg PO DAILY #30 tab Amoxic-Pot Clav 500-125 mg [Augmentin 500-125 mg] 1 tab PO Q12HR #14 tab Continue Ipratropium/Albuterol Sulfate [Combivent Respimat Inhaler] 1 puff INHALATION RT-QID Fluticasone/Salmeterol [Advair 500-50 Diskus] 1 puff INHALATION RT-BID Aspirin 81 mg PO DAILY Cetirizine HCl [Zyrtec] 10 mg PO DAILY Atorvastatin [Lipitor] 40 mg PO DAILY #30 tab Losartan [Cozaar] 50 mg PO DAILY #30 tab Nitroglycerin Sl Tabs [Nitrostat] 0.4 mg SUBLINGUAL Q5M PRN #25 tab PRN Reason: Chest Pain predniSONE 5 mg PO DAILY Metoprolol Tartrate [Lopressor] 12.5 mg PO BID Levothyroxine Sodium [Synthroid] 50 mcg PO DAILY Discontinued Glimepiride [Amaryl] 1 mg PO -[facility] Discharge Medication List Aspirin 81 mg PO DAILY 02/21/18 [History] Cetirizine HCl [Zyrtec] 10 mg PO DAILY 02/21/18 [History] Fluticasone/Salmeterol [Advair 500-50 Diskus] 1 puff INHALATION RT-BID 02/21/18 [History] Ipratropium/Albuterol Sulfate [Combivent Respimat Inhaler] 1 puff INHALATION RT- QID 02/21/18 [History] Atorvastatin [Lipitor] 40 mg PO DAILY #30 tab 02/23/18 [Rx] Losartan [Cozaar] 50 mg PO DAILY #30 tab 02/23/18 [Rx] Nitroglycerin Sl Tabs [Nitrostat] 0.4 mg SUBLINGUAL Q5M PRN #25 tab 02/23/18 [Rx] Metoprolol Tartrate [Lopressor] 12.5 mg PO BID 05/03/18 [History] predniSONE 5 mg PO DAILY 05/03/18 [History] Levothyroxine Sodium [Synthroid] 50 mcg PO DAILY 03/18/19 [History] Amoxic-Pot Clav 500-125 mg [Augmentin 500-125 mg] 1 tab PO Q12HR #14 tab 03/21/19 [Rx] Pioglitazone [Actos] 30 mg PO DAILY #30 tab 03/21/19 [Rx] Follow up Appointment(s)/Referral(s): Fransisco Marie DO [Medical Doctor] - 03/29/19 1:00 pm Alok Ospina MD [Primary Care Provider] - 03/28/19 11:15 am (Call if you need to get in sooner and they will find a place for you .) [facility] Visiting Nurse, [NON-STAFF] - 1 Week Patient Instructions/Handouts: Rheumatoid Arthritis (DC), Joint Aspiration (DC) Discharge Disposition: HOME WITH HOME HEALTH SERVICES
[2019-03-22] MEDS ORDERED: VANCOMYCIN TROUGH DUE 1 EACH MISC MISCELLANE ONE (10:00)
== END 2019-03-21 14:54 | disposition home health service (06) | DRG 546 ==
LOC: EC 00:56 → 3NMEDONC 05:57 → OBSVTOIN 03-19 08:46 → 3NMEDONC 03-21 10:04
PROVIDERS: ADMIT Family Medicine; ATTEND Family Medicine
PROC: 0S9B30Z Drainage of Left Hip Joint with Drainage Device, Percutaneous Approach (ICD-10-PCS; principal; 2019-03-18)
DX: M06.852 Other specified rheumatoid arthritis, left hip (principal); N39.0 Urinary tract infection, site not specified; M10.9 Gout, unspecified; N18.3 Chronic kidney disease, stage 3 (moderate); E11.22 Type 2 diabetes mellitus with diabetic chronic kidney disease; I13.10 Hypertensive heart and chronic kidney disease without heart failure, with stage 1 through stage 4 chronic kidney disease, or unspecified chronic kidney disease; E11.65 Type 2 diabetes mellitus with hyperglycemia; I25.10 Atherosclerotic heart disease of native coronary artery without angina pectoris; M19.90 Unspecified osteoarthritis, unspecified site; E03.9 Hypothyroidism, unspecified; J44.9 Chronic obstructive pulmonary disease, unspecified; E78.5 Hyperlipidemia, unspecified; E11.649 Type 2 diabetes mellitus with hypoglycemia without coma; I49.3 Ventricular premature depolarization; Z96.1 Presence of intraocular lens; B95.2 Enterococcus as the cause of diseases classified elsewhere; T38.0X5A Adverse effect of glucocorticoids and synthetic analogues, initial encounter; Z79.02 Long term (current) use of antithrombotics/antiplatelets; I25.2 Old myocardial infarction; Z79.82 Long term (current) use of aspirin; Z79.84 Long term (current) use of oral hypoglycemic drugs; Z79.890 Hormone replacement therapy; Z79.899 Other long term (current) drug therapy; Z82.3 Family history of stroke; Z82.49 Family history of ischemic heart disease and other diseases of the circulatory system; Z83.3 Family history of diabetes mellitus; Z85.51 Personal history of malignant neoplasm of bladder; Z86.19 Personal history of other infectious and parasitic diseases; Z87.891 Personal history of nicotine dependence; Z95.5 Presence of coronary angioplasty implant and graft; Z98.42 Cataract extraction status, left eye; Z98.41 Cataract extraction status, right eye; Z98.890 Other specified postprocedural states; Z90.49 Acquired absence of other specified parts of digestive tract; Z80.9 Family history of malignant neoplasm, unspecified; Z93.6 Other artificial openings of urinary tract status; Z87.440 Personal history of urinary (tract) infections
CPT/HCPCS: 20611; 36415; 73502; 80048; 81001; 82565; 83735; 84550; 85025; 85027; 85652; 86140; 86200; 87070; 87077; 87086; 87186; 87205; 89050; 89060; 94640; 96374; 96375; 99285

== ENCOUNTER → 2020-02-23 | Outpatient (CLI) | payer MEDICARE, BC ==
--- NOTE | 2020-02-23 12:44 | CT ---
EXAMINATION TYPE: CT abdomen pelvis wo con DATE OF EXAM: 02/23/2020 COMPARISON: 07/29/2018 HISTORY: Follow up bladder cancer. CT DLP: 765 mGycm Examination of the solid and hollow viscera is limited given the lack of contrast. FINDINGS: LUNG BASES: No evidence for infiltrate. There is evidence of cardiomegaly. Pleural-based nodular dens ity left lower lobe is unchanged. LIVER/GB: The gallbladder is unremarkable. No space-occupying hepatic lesion. PANCREAS: No pancreatic mass identified. No inflammatory process seen. SPLEEN: No evidence for splenomegaly. No intrasplenic lesions seen. ADRENALS: No adrenal nodules identified. No evidence for thickening. KIDNEYS: No evidence for renal mass. No nephrolithiasis. Mild right-sided hydronephrosis noted increa sed from prior examination. Left kidney is free of hydronephrosis. Hypoattenuating lesion is noted lo wer pole right kidney unchanged from prior study. BOWEL: Noted are changes of cystectomy with a urostomy formation. At the urostomy site and there is h erniated bowel which is made of predominantly of large bowel. No evidence for obstruction however. Lymph nodes: No evidence for adenopathy greater than 1 cm. Abdominal aorta: Atheromatous changes seen. 3.2 cm infrarenal abdominal aortic aneurysm. No evidence for aneurysm. Genital organs: No significant abnormality. Other: No significant abnormality. IMPRESSION: 1. Interval development of mild right-sided hydronephrosis. 2. Diverting ileostomy with urostomy formation appears unchanged. 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
== END | disposition home or self-care (01) ==
LOC: RADCTMAIN 10:18
PROVIDERS: ATTEND Urology
DX: N13.30 Unspecified hydronephrosis (principal); Z93.2 Ileostomy status; Z93.6 Other artificial openings of urinary tract status; K63.89 Other specified diseases of intestine; C67.9 Malignant neoplasm of bladder, unspecified
CPT/HCPCS: 74176

== ENCOUNTER 2021-01-15 12:04 | Inpatient (IN) | payer MEDICARE, BC ==
--- NOTE | 2021-01-15 13:37 | ED ---
Male Urogenital HPI - General Chief complaint: Urogenital Stated complaint: dehydrated, UTI Time Seen by Provider: 01/15/21 13:11 Source: patient Mode of arrival: ambulatory Limitations: no limitations - History of Present Illness Initial comments: This is an 89-year-old male with a history of CAD, COPD, hypertension, hyperlipidemia, bladder cancer status post urostomy and cystectomy who presents emergency department for purulent urine drainage there is urostomy. Patient states that he noted decreased amount of urine output since last night. He pre sented to Dr. Phelan's office who obtained a urinalysis and sent in the emergency department for evaluation. The patient states that last evening he was not feeling very well. There was reports of subjective fevers, nausea, vomiting, cough and some right-sided lower back pain. He states that most of these symptoms have resolved however he is still having some generalized malaise. Denies any abdominal pain. No diarrhea. No dark or bloody stools. No other complaints currently. - Related Data Home Medications Medication Instructions Recorded Confirmed Aspirin 81 mg PO DAILY 02/21/18 01/15/21 Cetirizine HCl [Zyrtec] 10 mg PO DAILY 02/21/18 01/15/21 Fluticasone/Salmeterol [Advair 1 puff INHALATION RT-BID 02/21/18 01/15/21 500-50 Diskus] Ipratropium/Albuterol Sulfate 1 puff INHALATION RT-QID 02/21/18 01/15/21 [Combivent Respimat Inhaler] Metoprolol Tartrate [Lopressor] 25 mg PO DAILY 05/03/18 01/15/21 Ciprofloxacin HCl [Cipro] 500 mg PO Q12HR 01/15/21 01/15/21 Fluticasone Nasal Peak [Flonase 1 - 2 spr EA NOSTRIL DAILY PRN 01/15/21 01/15/21 Nasal Peak] Furosemide [Lasix] 20 mg PO DAILY 01/15/21 01/15/21 Glimepiride [Amaryl] 1 mg PO [id number] 01/15/21 01/15/21 Levothyroxine Sodium [Euthyrox] 50 mcg PO DAILY 01/15/21 01/15/21 predniSONE See Taper PO DAILY 01/15/21 01/15/21 Previous Rx's Medication Instructions Recorded Atorvastatin [Lipitor] 40 mg PO DAILY #30 tab 02/23/18 Losartan [Cozaar] 50 mg PO DAILY #30 tab 02/23/18 Nitroglycerin Sl Tabs [Nitrostat] 0.4 mg SUBLINGUAL Q5M PRN #25 tab 02/23/18 Allergies Allergy/AdvReac Type Severity Reaction Status Date / Time No Known Allergies Allergy Verified 01/15/21 14:25 Review of Systems ROS Statement: Those systems with pertinent positive or pertinent negative responses have been documented in the HPI. ROS Other: All systems not noted in ROS Statement are negative. Past Medical History Past Medical History: Coronary Artery Disease (CAD), Cancer, COPD, Hyperlipidemia, Hypertension, Myocardial Infarction (ND), Osteoarthritis (OA), Thyroid Disorder Additional Past Medical History / Comment(s): Bladder cancer post urostomy, CAD post PCI of LAD and OM1, hypertension and hypertensive cardiovascular disease, hyperlipidemia, osteoarthritis, history of pancreatitis, history of carotid artery disease status post bilateral carotid endarterectomies, history of C. diff colitis. Last Myocardial Infarction Date:: 02-21-18 History of Any Multi-Drug Resistant Organisms: C-DIFF Date of last positivie culture/infection: c-diff 2007 MDRO Source:: stool Past Surgical History: Appendectomy, Heart Catheterization With Stent, Hernia Repair Additional Past Surgical History / Comment(s): bladder removal, urostomy, carotid endarterectomy bilaterally, cateract surgery, left heart catheterization with PCI of the first obtuse marginal and LAD, incisional hernia surgery. Past Anesthesia/Blood Transfusion Reactions: No Reported Reaction Additional Past Anesthesia/Blood Transfusion Reaction / Comment(s): Pt has received blood in past without reaction. Date of Last Stent Placement:: Past Psychological History: No Psychological Hx Reported Smoking Status: Former smoker Past Alcohol Use History: None Reported Past Drug Use History: None Reported - Past Family History Father Family Medical History: Cancer Additional Family Medical History / Comment(s): Father at age 65 from Bone cancer. Mother Family Medical History: CVA/TIA, Diabetes Mellitus Additional Family Medical History / Comment(s): Mother at age 67 from diabetes and CVA. Brother(s) Family Medical History: Coronary Artery Disease (CAD) Additional Family Medical History / Comment(s): Patient had one brother at age 86 from heart disease. Sister(s) Family Medical History: No Reported History Additional Family Medical History / Comment(s): Patient has one sister that is alive and well. Daughter(s) Family Medical History: No Reported History Additional Family Medical History / Comment(s): Patient has one daughter with no major medical problems. Son(s) Family Medical History: No Reported History Additional Family Medical History / Comment(s): Patient has one son with no major medical problems. General Exam - General Exam Comments Initial Comments: Constitutional: Awake alert Appears comfortable Head: Normocephalic atraumatic Eyes: no conjunctival injection No scleral icterus EOMI Neck: No JVD Supple Heart: Regular rate rhythm normal S1-S2 no murmurs Lungs: Clear to auscultation bilaterally No wheezing No rales Abdomen: Soft nondistended nontender, urostomy present in the mid lower abdomen. No urine present in the bag at this time, no CVA tenderness Extremities: Non edematous DP pulses intact Radial pulses intact, no midline lower back pain or right-sided back pain. Neuro: A&Ox3 No focal neurologic deficits Psych: Appropriate mood and affect Limitations: no limitations Course Vital Signs 01/15/21 01/15/21 01/15/21 12:33 14:14 15:00 Temperature 97.6 F Pulse Rate 54 L 57 L 65 Respiratory 16 18 18 Rate Blood Pressure 85/44 102/57 126/65 O2 Sat by Pulse 96 96 96 Oximetry 01/15/21 01/15/21 01/15/21 16:00 17:00 18:00 Temperature Pulse Rate 65 61 62 Respiratory 18 18 18 Rate Blood Pressure 130/57 111/58 O2 Sat by Pulse 96 96 96 Oximetry - Reevaluation(s) Reevaluation #1: EKG showing sinus bradycardia with a rate of 53. No abnormal ST 7 changes or T- wave or QTC is 418. Other intervals normal. No ectopy. 01/15/21 15:20 Medical Decision Making - Medical Decision Making Is an 82-year-old male who presents emergency department for Dr. Latif's office for purulent urine. The patient was mildly hypotensive on arrival which improved with fluids. Afebrile and not tachycardic. Patient was found to have a significant leukocytosis as well as evidence for urinary tract infection. CT of the abdomen did show worsening right-sided hydronephrosis. Patient's urine output also was decreased. I discussed the case with Dr. Bennett who agreed with antibiotics and monitoring in the hospital setting. He stated that he wanted to monitor the patient clinically and also recheck the creatinine in the morning before deciding if it required any further intervention at this time. Patient will be admitted to the hospital for further management. - Lab Data Result diagrams: 01/15/21 14:13 01/15/21 14:13 Lab Results 01/15/21 01/15/21 01/15/21 Range/Units 14:13 14:13 14:13 WBC 28.3 H (3.8-10.6) k/uL RBC 4.51 (4.30-5.90) m/uL Hgb 12.6 L (13.0-17.5) gm/dL Hct 39.3 (39.0-53.0) % MCV 87.2 (80.0-100.0) fL MCH 28.0 (25.0-35.0) pg MCHC 32.1 (31.0-37.0) g/dL RDW 14.8 (11.5-15.5) % Plt Count 245 (150-450) k/uL MPV 6.8 Neutrophils % 92 % Lymphocytes % 4 % Monocytes % 3 % Eosinophils % 1 % Basophils % 0 % Neutrophils # 26.1 H (1.3-7.7) k/uL Lymphocytes # 1.0 (1.0-4.8) k/uL Monocytes # 0.9 (0-1.0) k/uL Eosinophils # 0.2 (0-0.7) k/uL Basophils # 0.1 (0-0.2) k/uL PT 12.3 H (9.0-12.0) sec INR 1.2 H (<1.2) APTT 22.5 (22.0-30.0) sec Sodium (137-145) mmol/L Potassium (3.5-5.1) mmol/L Chloride (98-107) mmol/L Carbon Dioxide (22-30) mmol/L Anion Gap mmol/L BUN (9-20) mg/dL Creatinine (0.66-1.25) mg/dL Est GFR (CKD-EPI)AfAm (>60 ml/min/1.73 sqM) Est GFR (CKD-EPI)NonAf (>60 ml/min/1.73 sqM) Glucose (74-99) mg/dL Lactic Ac Sepsis Rflx Plasma Lactic Acid Robbie (0.7-2.0) mmol/L Calcium (8.4-10.2) mg/dL Total Bilirubin (0.2-1.3) mg/dL AST (17-59) U/L ALT (4-49) U/L Alkaline Phosphatase (38-126) U/L Total Protein (6.3-8.2) g/dL Albumin (3.5-5.0) g/dL Urine Color Yellow Urine Appearance Turbid (Clear) Urine pH 6.0 (5.0-8.0) Ur Specific [place] 1.018 (1.001-1.035) Urine Protein 2+ H (Negative) Urine Glucose (UA) Negative (Negative) Urine Ketones Negative (Negative) Urine Blood Large H (Negative) Urine Nitrite Negative (Negative) Urine Bilirubin Negative (Negative) Urine Urobilinogen <2.0 (<2.0) mg/dL Ur Leukocyte Esterase Large H (Negative) Urine RBC >182 H (0-5) /hpf Urine WBC >182 H (0-5) /hpf Urine WBC Clumps Many H (None) /hpf Urine Mucus Rare H (None) /hpf 01/15/21 01/15/21 01/15/21 Range/Units 14:13 14:13 14:53 WBC (3.8-10.6) k/uL RBC (4.30-5.90) m/uL Hgb (13.0-17.5) gm/dL Hct (39.0-53.0) % MCV (80.0-100.0) fL MCH (25.0-35.0) pg MCHC (31.0-37.0) g/dL RDW (11.5-15.5) % Plt Count (150-450) k/uL MPV Neutrophils % % Lymphocytes % % Monocytes % % Eosinophils % % Basophils % % Neutrophils # (1.3-7.7) k/uL Lymphocytes # (1.0-4.8) k/uL Monocytes # (0-1.0) k/uL Eosinophils # (0-0.7) k/uL Basophils # (0-0.2) k/uL PT (9.0-12.0) sec INR (<1.2) APTT (22.0-30.0) sec Sodium 137 (137-145) mmol/L Potassium 4.7 (3.5-5.1) mmol/L Chloride 107 (98-107) mmol/L Carbon Dioxide 17 L (22-30) mmol/L Anion Gap 13 mmol/L BUN 82 H (9-20) mg/dL Creatinine 3.67 H (0.66-1.25) mg/dL Est GFR (CKD-EPI)AfAm 16 (>60 ml/min/1.73 sqM) Est GFR (CKD-EPI)NonAf 14 (>60 ml/min/1.73 sqM) Glucose 68 L (74-99) mg/dL Lactic Ac Sepsis Rflx Y Plasma Lactic Acid Robbie 2.8 H* (0.7-2.0) mmol/L Calcium 8.5 (8.4-10.2) mg/dL Total Bilirubin 0.5 (0.2-1.3) mg/dL AST 20 (17-59) U/L ALT 16 (4-49) U/L Alkaline Phosphatase 60 (38-126) U/L Total Protein 6.2 L (6.3-8.2) g/dL Albumin 3.4 L (3.5-5.0) g/dL Urine Color Urine Appearance (Clear) Urine pH (5.0-8.0) Ur Specific [place] (1.001-1.035) Urine Protein (Negative) Urine Glucose (UA) (Negative) Urine Ketones (Negative) Urine Blood (Negative) Urine Nitrite (Negative) Urine Bilirubin (Negative) Urine Urobilinogen (<2.0) mg/dL Ur Leukocyte Esterase (Negative) Urine RBC (0-5) /hpf Urine WBC (0-5) /hpf Urine WBC Clumps (None) /hpf Urine Mucus (None) /hpf 01/15/21 Range/Units Unknown WBC (3.8-10.6) k/uL RBC (4.30-5.90) m/uL Hgb (13.0-17.5) gm/dL Hct (39.0-53.0) % MCV (80.0-100.0) fL MCH (25.0-35.0) pg MCHC (31.0-37.0) g/dL RDW (11.5-15.5) % Plt Count (150-450) k/uL MPV Neutrophils % % Lymphocytes % % Monocytes % % Eosinophils % % Basophils % % Neutrophils # (1.3-7.7) k/uL Lymphocytes # (1.0-4.8) k/uL Monocytes # (0-1.0) k/uL Eosinophils # (0-0.7) k/uL Basophils # (0-0.2) k/uL PT (9.0-12.0) sec INR (<1.2) APTT (22.0-30.0) sec Sodium (137-145) mmol/L Potassium (3.5-5.1) mmol/L Chloride (98-107) mmol/L Carbon Dioxide (22-30) mmol/L Anion Gap mmol/L BUN (9-20) mg/dL Creatinine (0.66-1.25) mg/dL Est GFR (CKD-EPI)AfAm (>60 ml/min/1.73 sqM) Est GFR (CKD-EPI)NonAf (>60 ml/min/1.73 sqM) Glucose (74-99) mg/dL Lactic Ac Sepsis Rflx Plasma Lactic Acid Robbie 2.2 H* (0.7-2.0) mmol/L Calcium (8.4-10.2) mg/dL Total Bilirubin (0.2-1.3) mg/dL AST (17-59) U/L ALT (4-49) U/L Alkaline Phosphatase (38-126) U/L Total Protein (6.3-8.2) g/dL Albumin (3.5-5.0) g/dL Urine Color Urine Appearance (Clear) Urine pH (5.0-8.0) Ur Specific [place] (1.001-1.035) Urine Protein (Negative) Urine Glucose (UA) (Negative) Urine Ketones (Negative) Urine Blood (Negative) Urine Nitrite (Negative) Urine Bilirubin (Negative) Urine Urobilinogen (<2.0) mg/dL Ur Leukocyte Esterase (Negative) Urine RBC (0-5) /hpf Urine WBC (0-5) /hpf Urine WBC Clumps (None) /hpf Urine Mucus (None) /hpf Disposition Clinical Impression: Sepsis, UTI (urinary tract infection), ARIA (acute kidney injury), Hydronephrosis Disposition: ADMITTED IP TO THIS HOSP Condition: Serious Referrals: Alok Ospina MD [Primary Care Provider] - 1-2 days
[2021-01-15 14:30] LABS: Basophils # (A) 0.1 k/uL (0-0.2); Basophils % (A) 0 %; Eosinophils # (A) 0.2 k/uL (0-0.7); Eosinophils % (A) 1 %; HCT 39.3 % (39.0-53.0); HGB 12.6 gm/dL (13.0-17.5); Lymphocytes % (A) 4 %; MCHC 32.1 g/dL (31.0-37.0); MCV 87.2 fL (80.0-100.0); Mean Platelet Volume 6.8; Monocytes # (A) 0.9 k/uL (0-1.0); Monocytes % (A) 3 %; Neutrophils # (A) 26.1 k/uL (1.3-7.7); Neutrophils % (A) 92 %; Platelet Count 245 k/uL (150-450); RBC 4.51 m/uL (4.30-5.90); RDW 14.8 % (11.5-15.5); WBC 28.3 k/uL (3.8-10.6)
[2021-01-15] MEDS: SODIUM CHLORIDE 0.9% 500 ML 500 ML IV SCH ×2 (14:31→15:27)
[2021-01-15 14:47] LABS: Albumin 3.4 g/dL (3.5-5.0); Calcium 8.5 mg/dL (8.4-10.2); Potassium 4.7 mmol/L (3.5-5.1); Total Bilirubin 0.5 mg/dL (0.2-1.3); Total Protein 6.2 g/dL (6.3-8.2)
[2021-01-15] MEDS ORDERED: SODIUM CHLORIDE 0.9% 1,000 ML IV ONE (15:00)
--- NOTE | 2021-01-15 15:04 | XR ---
EXAMINATION TYPE: XR chest 2V DATE OF EXAM: 01/15/2021 COMPARISON: Chest x-ray 01/01/2021 HISTORY: This of breath TECHNIQUE: Frontal and lateral views of the chest are obtained. FINDINGS: There is no focal air space opacity, pleural effusion, or pneumothorax seen. The cardiac silhouette size is stable and enlarged, there are coronary artery calcifications, the aorta is dense. Prominent lung volumes could be indicative of underlying COPD. The osseous structures are intact. T here are overlying cardiac leads. Some strand-like densities are present within the lungs which may r eflect some underlying scarring. IMPRESSION: No acute cardiopulmonary process.
[2021-01-15 15:05] LABS: INR 1.2 (<1.2); Partial Thromboplastin Time 22.5 sec (22.0-30.0); Prothrombin Time 12.3 sec (9.0-12.0)
[2021-01-15 15:50] LABS: Appearance,Urine Turbid (Clear); Bilirubin,Urine Negative (Negative); Blood,Urine Large (Negative); Color,Urine Yellow; Glucose,Urine (UA) Negative (Negative); Ketones,Urine Negative (Negative); Leukocyte Esterase,Urine Large (Negative); Mucus,Urine Rare /hpf; Nitrite,Urine Negative (Negative); Protein,Urine 2+ (Negative); RBC,Urine >182 /hpf (0-5); Specific Gravity,Urine 1.018 (1.001-1.035); Urobilinogen,Urine <2.0 mg/dL (<2.0); WBC,Urine >182 /hpf (0-5)
[2021-01-15] MEDS ORDERED: ALPRAZolam 0.5 MG TAB PO STA (16:38)
--- NOTE | 2021-01-15 17:08 | CT ---
EXAMINATION TYPE: CT abdomen pelvis wo con DATE OF EXAM: 01/15/2021 COMPARISON: CT 02/23/2020 HISTORY: pyelonephritis, poor historian CT DLP: 515.6 mGycm Automated exposure control for dose reduction was used. TECHNIQUE: Helical acquisition of images from the lung bases through the pelvis. FINDINGS: Lack of contrast could compromise sensitivity. Coronary artery calcifications are present. There is an ostomy in the right lower quadrant containing bowel loops. LUNG BASES: Stable scarring at the left lung base. AORTA: Surgical clips are present in the bilateral groins with some local inflammatory change suspec qiana in the right as on prior, extensive atheromatous change present in the aorta involving the viscer al vessels. LIVER/GB: No significant abnormality is appreciated. PANCREAS: No significant abnormality is seen. SPLEEN: No significant abnormality is seen. ADRENALS: No significant abnormality is seen. KIDNEYS: Right-sided hydronephrosis is again seen likely has progressed, ileal loop is also fluid-cheo led similar to prior exam. REPRODUCTIVE ORGANS: No significant abnormality is seen. URINARY BLADDER: Not seen. BOWEL: Postop changes are again noted to the bowel, diverticular changes are present within the sigm oid colon. FREE AIR: No Free Air is visible. ASCITES: None visible. PELVIC ADENOPATHY: None visualized. RETROPERITONEAL ADENOPATHY: No Retroperitoneal Adenopathy visible. OSSEOUS STRUCTURES: No significant abnormality is seen. IMPRESSION: RIGHT-SIDED HYDRONEPHROSIS HAS PROGRESSED IN THE INTERVAL. POSTOP CHANGES. NONCONTRAST EXAM. ADDITION AL FINDINGS ABOVE.
[2021-01-15] MEDS: SODIUM CHLORIDE 0.9% 1,000 ML IV SCH (18:13)
[2021-01-15 23:03] LABS: Glucose,Whole Blood 52 mg/dL (75-99)
[2021-01-15 23:23] LABS: Glucose,Whole Blood 57 mg/dL (75-99)
[2021-01-15] MEDS ORDERED: NITROGLYCERIN SL TABS 0.4 MG TAB SUBLINGUAL PRN (23:32)
[2021-01-15] MEDS ORDERED: HYDROmorphone 0.5 MG/0.5 ML SYRINGE IM PRN (23:36)
[2021-01-15 23:49] LABS: Glucose,Whole Blood 71 mg/dL (75-99)
[2021-01-16] MEDS: LEVOTHYROXINE 50 MCG TAB PO SCH (05:55)
[2021-01-16] MEDS: SODIUM CHLORIDE 0.9% 1,000 ML IV SCH ×3 (05:56→12:44)
[2021-01-16 06:59] LABS: Glucose,Whole Blood 181 mg/dL (75-99)
[2021-01-16 07:19] LABS: Basophils % (A) 0 %; Eosinophils # (A) 0.2 k/uL (0-0.7); Eosinophils % (A) 1 %; HCT 33.8 % (39.0-53.0); HGB 10.9 gm/dL (13.0-17.5); Hypochromasia Slight; Lymphocytes # (A) 0.7 k/uL (1.0-4.8); Lymphocytes % (A) 4 %; MCH 28.5 pg (25.0-35.0); MCHC 32.2 g/dL (31.0-37.0); MCV 88.7 fL (80.0-100.0); Mean Platelet Volume 6.6; Monocytes # (A) 0.5 k/uL (0-1.0); Monocytes % (A) 3 %; Neutrophils # (A) 17.1 k/uL (1.3-7.7); Neutrophils % (A) 92 %; Platelet Count 190 k/uL (150-450); RBC 3.81 m/uL (4.30-5.90); RDW 14.8 % (11.5-15.5); WBC 18.6 k/uL (3.8-10.6)
[2021-01-16 07:27] LABS: ALT 13 U/L (4-49); AST 19 U/L (17-59); African American GFR (CKD) 23 (>60 ml/min/1.73 sqM); Albumin 2.7 g/dL (3.5-5.0); Albumin/Globulin Ratio 1.1; Alkaline Phosphatase 63 U/L (38-126); Anion Gap 6 mmol/L; Blood Urea Nitrogen 62 mg/dL (9-20); Calcium 7.5 mg/dL (8.4-10.2); Carbon Dioxide 21 mmol/L (22-30); Chloride 111 mmol/L (98-107); Globulin 2.5 g/dL; Glucose 179 mg/dL (74-99); Non-African American GFR(CKD) 20 (>60 ml/min/1.73 sqM); Potassium 4.6 mmol/L (3.5-5.1); Sodium 138 mmol/L (137-145); Total Bilirubin 0.2 mg/dL (0.2-1.3); Total Protein 5.2 g/dL (6.3-8.2)
[2021-01-16] MEDS ORDERED: GLIMEPIRIDE 1 MG TAB PO SCH (07:30)
[2021-01-16] MEDS: IPRATROPIUM-ALBUTEROL 3 ML NEB INHALATION SCH ×4 (07:32→20:05)
[2021-01-16] MEDS: SYMBICORT 160-4.5 MCG INHALER INHALATION SCH ×2 (07:32→20:05)
[2021-01-16] MEDS: METOPROLOL TARTRATE 25 MG TAB PO SCH (08:01)
[2021-01-16] MEDS: ASPIRIN 81 MG PO SCH (08:01)
[2021-01-16] MEDS: ATORVASTATIN 40 MG TAB PO SCH (08:01)
[2021-01-16] MEDS: LORATADINE 10 MG TAB PO SCH (08:01)
[2021-01-16] MEDS ORDERED: ONDANSETRON 4 MG/2 ML VIAL IVP PRN (08:16)
[2021-01-16] MEDS ORDERED: CIPROFLOXACIN HCL 500 MG TAB PO SCH (09:00)
[2021-01-16] MEDS ORDERED: LOSARTAN 50 MG TAB PO SCH (09:00)
[2021-01-16] MEDS ORDERED: FUROSEMIDE 20 MG TAB PO SCH (09:00)
[2021-01-16 11:57] LABS: Glucose,Whole Blood 197 mg/dL (75-99)
--- NOTE | 2021-01-16 13:31 | P.HPIM ---
History of Present Illness H&P Date: 01/16/21 HISTORY OF PRESENT ILLNESS This is an 89-year-old male one of Dr. Alok Ospina with a previous medical history significant for hypertension and hypertensive cardiovascular disease with left ventricular hypertrophy, CAD post PCI of the first obtuse marginal and LAD with 2 drug-eluting stent placement, carotid artery disease status post bilateral carotid endarterectomies, hyperlipidemia, bladder cancer status post radical cystectomy and ileal loop urinary diversion, hypothyroidism, COPD, rheumatoid arthritis, history of pancreatitis and history of C. difficile colitis, chronic kidney disease stage IIIB, diabetes mellitus type 2. Patient came into the emergency center due to purulent urine drainage from urostomy. He denies fever or chills. He states he has had frequent urinary tract infections. He came into [facility] emergency center for evaluation. He was found to be afebrile, heart rate 54, blood pressure initially 85/44, pulse ox 96% on room air. EKG is sinus bradycardia. WBC 28.3, hemoglobin 12.6, platelet count 245. Sodium 137, potassium 4.7, chloride 107, CO2 17, BUN 82 creatinine 3.67. Blood sugar 68. INR 1.2. Urinalysis turbid, blood large, leukoesterase large, RBCs greater than 182, wbc's greater than 182, WBC clumps many. Lactic acid 2.8. Liver function tests were normal. CAT scan of the abdomen and pelvis without contrast revealed right-sided hydronephrosis has progressed in the interval. Chest x-ray reveals no acute cardiopulmonary process. Patient is status post 2-1/2 L of IV fluid and started on ceftriaxone, admitted to the [facility] floor and consult with urology. REVIEW OF SYSTEMS Constitutional: No fever, no chills, no night sweats. No weight change. No weakness, fatigue or lethargy. No daytime sleepiness. Generalized malaise. EENT: No headache. No blurred vision or double vision, no loss of vision. No loss of Hearing, no ringing in the ears, no dizziness. No nasal drainage or congestion. No epistaxis. No sore throat. Lungs: No shortness of breath, cough, no sputum production. No wheezing. Cardiovascular: No chest pain, no lower extremity edema. No palpitations. No paroxysmal nocturnal dyspnea. No orthopnea. No lightheadedness or dizziness. No syncopal episodes. Abdominal: No abdominal pain. No nausea, vomiting. No diarrhea. No cons tipation. No bloody or tarry stools.. No loss of appetite. Genitourinary: No dysuria, increased frequency, urgency. No urinary retention. Purulent drainage. Musculoskeletal: No myalgias. No muscle weakness, no gait dysfunction, no frequent falls. No back pain. No neck pain. Integumentary: No wounds, no lesions. No rash or pruritus. No unusual bruising. No change in hair or nails. Neurologic: No aphasia. No facial droop. No change in mentation. No head injury. No headache. No paralysis. No paresthesia. Psychiatric: No depression. No anxiety. No mood swings. Endocrine: No abnormal blood sugars. No weight change. No excessive sweating or thirst. No cold intolerance. SOCIAL HISTORY Remote history of smoking, no alcohol use, marijuana use or illicit drug use. FAMILY HISTORY Father at age 65 from Bone cancer. Mother at age 67 from diabetes and CVA. Patient had one brother at age 86 from heart disease. Patient has one sister that is alive and well. Patient has one daughter with no major medical problems and one son with no major medical problems. PHYSICAL EXAMINATION Gen: This is an 89-year-old male, resting in bed and appears to be comfortable and in no acute distress. HEENT: Head is atraumatic, normocephalic. Pupils equal, round. Sclerae is anicteric. NECK: Supple. No JVD. No lymphadenopathy. No thyromegaly. LUNGS: Clear to auscultation. No wheezes or rhonchi. No intercostal retractions. HEART: Regular rate and rhythm. No murmur. ABDOMEN: Soft. Bowel sounds are present. No masses. No tenderness. Urostomy in place to the mid right lower abdomen. Jordana colored urine. EXTREMITIES: No pedal edema. No calf tenderness. NEUROLOGICAL: Patient is awake, alert and oriented x3. Cranial nerves 2 through 12 are grossly intact. ASSESSMENT AND PLAN 1. Sepsis secondary to acute urinary tract infection. Patient started on ceftriaxone, consult with urology, urine culture, blood culture. 2. Acute lactic acidosis secondary to sepsis and renal failure. 3. Acute kidney injury on top of chronic kidney disease stage IIIB secondary to right-sided hydronephrosis. IV fluids decreased to 75 mL per hour, recheck BMP in the morning. Discontinue prednisone, losartan 4. Hypoglycemia secondary to sepsis and probable poor oral intake. Hold glyburide for now, NovoLog scale before meals and at bedtime only. 5. Diabetes mellitus type 2. NovoLog scale before meals and at bedtime. 6. Hypertension, hypertensive cardiovascular disease. Hold losartan. Continue to monitor blood pressure closely. 7. CAD status post PCI of the first obtuse marginal and LAD with 2 drug-eluting stents. Continue aspirin 81 mg daily, Lipitor 40 mg daily, Lopressor 25 mg daily. 8. Carotid artery disease status post endarterectomy, stable. 9. Hyperlipidemia. Continue atorvastatin 40 mg daily. 10. Hypothyroidism. Continue levothyroxine 50 g daily. 11. History of bladder cancer in 2008 status post radical cystectomy, ileal loop urinary diversion. 12. COPD without exacerbation. 13. Rheumatoid arthritis, stable. 14. GI prophylaxis. Protonix 40 mg oral daily. 15. DVT prophylaxis. Heparin subcu. Patient will be admitted to the hospital for a minimum of 2 night stay. DISCHARGE PLAN Most likely return home. PT and OT consults. Impression and plan of care have been directed as dictated by the signing physician. Melvina Solorzano nurse practitioner acting as scribe for signing physician. Past Medical History Past Medical History: Coronary Artery Disease (CAD), Cancer, COPD, Hyperlipidemia, Hypertension, Myocardial Infarction (NM), Osteoarthritis (OA), Thyroid Disorder Additional Past Medical History / Comment(s): Bladder cancer post urostomy, CAD post PCI of LAD and OM1, hypertension and hypertensive cardiovascular disease, h yperlipidemia, osteoarthritis, history of pancreatitis, history of carotid artery disease status post bilateral carotid endarterectomies, history of C. diff colitis. Last Myocardial Infarction Date:: 02-21-18 History of Any Multi-Drug Resistant Organisms: C-DIFF Date of last positivie culture/infection: c-diff 2007 MDRO Source:: stool Past Surgical History: Appendectomy, Heart Catheterization With Stent, Hernia Repair Additional Past Surgical History / Comment(s): bladder removal, urostomy, carotid endarterectomy bilaterally, cateract surgery, left heart catheterization with PCI of the first obtuse marginal and LAD, incisional hernia surgery. Past Anesthesia/Blood Transfusion Reactions: No Reported Reaction Additional Past Anesthesia/Blood Transfusion Reaction / Comment(s): Pt has received blood in past without reaction. Date of Last Stent Placement:: Past Psychological History: No Psychological Hx Reported Additional Psychological History / Comment(s): and lives in the family home with his . 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 Was in the [employer], [employer] and [employer]. Has traveled to [facility] in [place] in the past. No animals in the home. Stopped smoking in 1964. No history of significant alcohol or drug use Smoking Status: Former smoker Past Alcohol Use History: None Reported Additional Past Alcohol Use History / Comment(s): Patient smoked for 17 years. Patient lives at home with his . He is independent. He owns a hardware [employer] in [place] and works there daily. Past Drug Use History: None Reported - Past Family History Father Family Medical History: Cancer Additional Family Medical History / Comment(s): Father at age 65 from Bone cancer. Mother Family Medical History: CVA/TIA, Diabetes Mellitus Additional Family Medical History / Comment(s): Mother at age 67 from diabetes and CVA. Brother(s) Family Medical History: Coronary Artery Disease (CAD) Additional Family Medical History / Comment(s): Patient had one brother at age 86 from heart disease. Sister(s) Family Medical History: No Reported History Additional Family Medical History / Comment(s): Patient has one sister that is alive and well. Daughter(s) Family Medical History: No Reported History Additional Family Medical History / Comment(s): Patient has one daughter with no major medical problems. Son(s) Family Medical History: No Reported History Additional Family Medical History / Comment(s): Patient has one son with no major medical problems. Medications and Allergies Home Medications Medication Instructions Recorded Confirmed Type Aspirin 81 mg PO DAILY 02/21/18 01/15/21 History Cetirizine HCl [Zyrtec] 10 mg PO DAILY 02/21/18 01/15/21 History Fluticasone/Salmeterol [Advair 1 puff INHALATION RT-BID 02/21/18 01/15/21 History 500-50 Diskus] Ipratropium/Albuterol Sulfate 1 puff INHALATION RT-QID 02/21/18 01/15/21 History [Combivent Respimat Inhaler] Atorvastatin [Lipitor] 40 mg PO DAILY #30 tab 02/23/18 01/15/21 Rx Losartan [Cozaar] 50 mg PO DAILY #30 tab 02/23/18 01/15/21 Rx Nitroglycerin Sl Tabs [Nitrostat] 0.4 mg SUBLINGUAL Q5M PRN #25 tab 02/23/18 01/15/21 Rx Metoprolol Tartrate [Lopressor] 25 mg PO DAILY 05/03/18 01/15/21 History Ciprofloxacin HCl [Cipro] 500 mg PO Q12HR 01/15/21 01/15/21 History Fluticasone Nasal [place] [Flonase 1 - 2 spr EA NOSTRIL DAILY PRN 01/15/21 01/15/21 History Nasal Ong] Furosemide [Lasix] 20 mg PO DAILY 01/15/21 01/15/21 History Glimepiride [Amaryl] 1 mg PO AC-BRKFST 01/15/21 01/15/21 History Levothyroxine Sodium [Euthyrox] 50 mcg PO DAILY 01/15/21 01/15/21 History predniSONE See Taper PO DAILY 01/15/21 01/15/21 History Allergies Allergy/AdvReac Type Severity Reaction Status Date / Time No Known Allergies Allergy Verified 01/15/21 14:25 Physical Exam Vitals: Vital Signs Temp Pulse Pulse Resp BP BP Pulse Ox 01/16/21 07:46 100 01/16/21 07:36 96 01/16/21 06:05 98.1 F 85 16 158/65 97 01/15/21 21:55 98.1 F 89 20 153/63 90 L 01/15/21 19:30 98.9 F 69 18 127/73 94 L 01/15/21 18:00 62 18 111/58 96 01/15/21 17:00 61 18 130/57 96 01/15/21 16:00 65 18 96 01/15/21 15:00 65 18 126/65 96 01/15/21 14:14 57 L 18 102/57 96 01/15/21 12:33 97.6 F 54 L 16 85/44 96 Intake and Output 01/15/21 01/16/21 01/16/21 22:59 06:59 14:59 Output Total 1300 Balance -1300 Output: Urine 1300 Other: Weight 77.111 kg Results CBC & Chem 7: 01/16/21 06:48 01/16/21 06:48 Labs: Abnormal Lab Results - Last 24 Hours (Table) 01/15/21 01/15/21 01/15/21 Range/Units 14:13 14:13 14:13 WBC 28.3 H (3.8-10.6) k/uL RBC (4.30-5.90) m/uL Hgb 12.6 L (13.0-17.5) gm/dL Hct (39.0-53.0) % Neutrophils # 26.1 H (1.3-7.7) k/uL Lymphocytes # (1.0-4.8) k/uL PT 12.3 H (9.0-12.0) sec INR 1.2 H (<1.2) Chloride (98-107) mmol/L Carbon Dioxide (22-30) mmol/L BUN (9-20) mg/dL Creatinine (0.66-1.25) mg/dL Glucose (74-99) mg/dL POC Glucose (mg/dL) (75-99) mg/dL Plasma Lactic Acid Robbie (0.7-2.0) mmol/L Calcium (8.4-10.2) mg/dL Total Protein (6.3-8.2) g/dL Albumin (3.5-5.0) g/dL Urine Protein 2+ H (Negative) Urine Blood Large H (Negative) Ur Leukocyte Esterase Large H (Negative) Urine RBC >182 H (0-5) /hpf Urine WBC >182 H (0-5) /hpf Urine WBC Clumps Many H (None) /hpf Urine Mucus Rare H (None) /hpf 01/15/21 01/15/21 01/15/21 Range/Units 14:13 14:13 23:00 WBC (3.8-10.6) k/uL RBC (4.30-5.90) m/uL Hgb (13.0-17.5) gm/dL Hct (39.0-53.0) % Neutrophils # (1.3-7.7) k/uL Lymphocytes # (1.0-4.8) k/uL PT (9.0-12.0) sec INR (<1.2) Chloride (98-107) mmol/L Carbon Dioxide 17 L (22-30) mmol/L BUN 82 H (9-20) mg/dL Creatinine 3.67 H (0.66-1.25) mg/dL Glucose 68 L (74-99) mg/dL POC Glucose (mg/dL) 52 L (75-99) mg/dL Plasma Lactic Acid Robbie 2.8 H* (0.7-2.0) mmol/L Calcium (8.4-10.2) mg/dL Total Protein 6.2 L (6.3-8.2) g/dL Albumin 3.4 L (3.5-5.0) g/dL Urine Protein (Negative) Urine Blood (Negative) Ur Leukocyte Esterase (Negative) Urine RBC (0-5) /hpf Urine WBC (0-5) /hpf Urine WBC Clumps (None) /hpf Urine Mucus (None) /hpf 01/15/21 01/15/21 01/15/21 Range/Units 23:21 23:47 Unknown WBC (3.8-10.6) k/uL RBC (4.30-5.90) m/uL Hgb (13.0-17.5) gm/dL Hct (39.0-53.0) % Neutrophils # (1.3-7.7) k/uL Lymphocytes # (1.0-4.8) k/uL PT (9.0-12.0) sec INR (<1.2) Chloride (98-107) mmol/L Carbon Dioxide (22-30) mmol/L BUN (9-20) mg/dL Creatinine (0.66-1.25) mg/dL Glucose (74-99) mg/dL POC Glucose (mg/dL) 57 L 71 L (75-99) mg/dL Plasma Lactic Acid Robbie 2.2 H* (0.7-2.0) mmol/L Calcium (8.4-10.2) mg/dL Total Protein (6.3-8.2) g/dL Albumin (3.5-5.0) g/dL Urine Protein (Negative) Urine Blood (Negative) Ur Leukocyte Esterase (Negative) Urine RBC (0-5) /hpf Urine WBC (0-5) /hpf Urine WBC Clumps (None) /hpf Urine Mucus (None) /hpf 01/16/21 01/16/21 01/16/21 Range/Units 06:48 06:48 06:58 WBC 18.6 H (3.8-10.6) k/uL RBC 3.81 L (4.30-5.90) m/uL Hgb 10.9 L (13.0-17.5) gm/dL Hct 33.8 L (39.0-53.0) % Neutrophils # 17.1 H (1.3-7.7) k/uL Lymphocytes # 0.7 L (1.0-4.8) k/uL PT (9.0-12.0) sec INR (<1.2) Chloride 111 H (98-107) mmol/L Carbon Dioxide 21 L (22-30) mmol/L BUN 62 H (9-20) mg/dL Creatinine 2.77 H (0.66-1.25) mg/dL Glucose 179 H (74-99) mg/dL POC Glucose (mg/dL) 181 H (75-99) mg/dL Plasma Lactic Acid Robbie (0.7-2.0) mmol/L Calcium 7.5 L (8.4-10.2) mg/dL Total Protein 5.2 L (6.3-8.2) g/dL Albumin 2.7 L (3.5-5.0) g/dL Urine Protein (Negative) Urine Blood (Negative) Ur Leukocyte Esterase (Negative) Urine RBC (0-5) /hpf Urine WBC (0-5) /hpf Urine WBC Clumps (None) /hpf Urine Mucus (None) /hpf Microbiology - Last 24 Hours (Table) 01/15/21 14:13 Urine Culture - Preliminary Urine,Clean Catch Thrombosis Risk Factor Assmnt - Choose All That Apply Each Factor Represents 1 point: Abnormal pulmonary function (COPD) Each Risk Factor Represents 3 Points: Age 75 years or older Thrombosis Risk Factor Assessment Total Risk Factor Score: 4 Thrombosis Risk Factor Assessment Level: Moderate Risk
[2021-01-16 17:14] LABS: Glucose,Whole Blood 167 mg/dL (75-99)
[2021-01-16] MEDS: INSULIN ASPART (NovoLOG) 100 UNIT/ML VIAL SQ SCH ×2 (18:13→20:41)
--- NOTE | 2021-01-16 18:31 | P.GSCN ---
History of Present Illness Consult date: 01/16/21 Reason for Consult: UTI, right hydronephrosis History of present illness: This is an 89-year-old Male with hx of Bladder cancer S/P cystectomy with ileal conduit. He is admitted to the hospital with sepsis secondary to UTI. On presentation he was having purulent urine from the urostomy. He was hypotensive presentation. WBC 28.3, and his lactate was 2.8. He underwent a CT abdomen on presentation, which showed evidence of right-sided hydronephrosis, of note he had a CT scan back in February 2020 showed evidence of right-sided hydronephrosis. On presentation creatinine 3.67, this creat improved to 2.77. Baseline creatinine is 2.This am on evaluation denies any flank pain, he is having good urine output from his urostomy Review of Systems - Constitutional Denies chills, Denies fever, Denies weight loss - Cardiovascular Denies chest pain, Denies shortness of breath - Respiratory Denies cough, Denies 7 - Gastrointestinal Reports abdominal pain - Genitourinary Denies dysuria, Denies flank pain, Denies hematuria - Integumentary Denies rash, Denies unusual bruising Past Medical History Past Medical History: Coronary Artery Disease (CAD), Cancer, COPD, Hyperlipidemia, Hypertension, Myocardial Infarction (SD), Osteoarthritis (OA), Thyroid Disorder Additional Past Medical History / Comment(s): Bladder cancer post urostomy, CAD post PCI of LAD and OM1, hypertension and hypertensive cardiovascular disease, hyperlipidemia, osteoarthritis, history of pancreatitis, history of carotid artery disease status post bilateral carotid endarterectomies, history of C. diff colitis. Last Myocardial Infarction Date:: 02-21-18 History of Any Multi-Drug Resistant Organisms: C-DIFF Year Discovered:: c-diff 2007 MDRO Source:: stool Past Surgical History: Appendectomy, Heart Catheterization With Stent, Hernia Repair Additional Past Surgical History / Comment(s): bladder removal, urostomy, carotid endarterectomy bilaterally, cateract surgery, left heart catheterization with PCI of the first obtuse marginal and LAD, incisional hernia surgery. Past Anesthesia/Blood Transfusion Reactions: No Reported Reaction Additional Past Anesthesia/Blood Transfusion Reaction / Comm: Pt has received blood in past without reaction. Date of Last Stent Placement:: Past Psychological History: No Psychological Hx Reported Additional Psychological History / Comment(s): and lives in the family home with his . 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 Was in the [employer], [employer] and [employer]. Has traveled to [facility] in [place] in the past. No animals in the home. Stopped smoking in 1964. No history of significant alcohol or drug use Smoking Status: Former smoker Past Alcohol Use History: None Reported Additional Past Alcohol Use History / Comment(s): Patient smoked for 17 years. Patient lives at home with his . He is independent. 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 Past Drug Use History: None Reported - Past Family History Father Family Medical History: Cancer Additional Family Medical History / Comment(s): Father at age 65 from Bone cancer. Mother Family Medical History: CVA/TIA, Diabetes Mellitus Additional Family Medical History / Comment(s): Mother at age 67 from diabetes and CVA. Brother(s) Family Medical History: Coronary Artery Disease (CAD) Additional Family Medical History / Comment(s): Patient had one brother at age 86 from heart disease. Sister(s) Family Medical History: No Reported History Additional Family Medical History / Comment(s): Patient has one sister that is alive and well. Daughter(s) Family Medical History: No Reported History Additional Family Medical History / Comment(s): Patient has one daughter with no major medical problems. Son(s) Family Medical History: No Reported History Additional Family Medical History / Comment(s): Patient has one son with no major medical problems. Medications and Allergies Home Medications Medication Instructions Recorded Confirmed Type Aspirin 81 mg PO DAILY 02/21/18 01/15/21 History Cetirizine HCl [Zyrtec] 10 mg PO DAILY 02/21/18 01/15/21 History Fluticasone/Salmeterol [Advair 1 puff INHALATION RT-BID 02/21/18 01/15/21 History 500-50 Diskus] Ipratropium/Albuterol Sulfate 1 puff INHALATION RT-QID 02/21/18 01/15/21 History [Combivent Respimat Inhaler] Atorvastatin [Lipitor] 40 mg PO DAILY #30 tab 02/23/18 01/15/21 Rx Losartan [Cozaar] 50 mg PO DAILY #30 tab 02/23/18 01/15/21 Rx Nitroglycerin Sl Tabs [Nitrostat] 0.4 mg SUBLINGUAL Q5M PRN #25 tab 02/23/18 01/15/21 Rx Metoprolol Tartrate [Lopressor] 25 mg PO DAILY 05/03/18 01/15/21 History Ciprofloxacin HCl [Cipro] 500 mg PO Q12HR 01/15/21 01/15/21 History Fluticasone Nasal [place] [Flonase 1 - 2 spr EA NOSTRIL DAILY PRN 01/15/21 01/15/21 History Nasal [place]] Furosemide [Lasix] 20 mg PO DAILY 01/15/21 01/15/21 History Glimepiride [Amaryl] 1 mg PO AC-BRKFST 01/15/21 01/15/21 History Levothyroxine Sodium [Euthyrox] 50 mcg PO DAILY 01/15/21 01/15/21 History predniSONE See Taper PO DAILY 01/15/21 01/15/21 History Allergies Allergy/AdvReac Type Severity Reaction Status Date / Time No Known Allergies Allergy Verified 01/15/21 14:25 Surgical - Exam Vital Signs Temp Pulse Resp BP Pulse Ox 97.6 F 54 L 16 85/44 96 01/15/21 12:33 01/15/21 12:33 01/15/21 12:33 01/15/21 12:33 01/15/21 12:33 - General no distress, no pain - Eyes PERRL, normal ocular movement - ENT normal nares, normal mucosa - Respiratory normal expansion, normal respiratory effort - Abdomen Abdomen: soft - Psychiatric oriented to time, oriented to person, oriented to place Results - Labs 01/16/21 06:48 01/16/21 06:48 Abnormal Lab Results - Last 24 Hours (Table) 01/15/21 01/15/21 01/15/21 Range/Units 23:00 23:21 23:47 WBC (3.8-10.6) k/uL RBC (4.30-5.90) m/uL Hgb (13.0-17.5) gm/dL Hct (39.0-53.0) % Neutrophils # (1.3-7.7) k/uL Lymphocytes # (1.0-4.8) k/uL Chloride (98-107) mmol/L Carbon Dioxide (22-30) mmol/L BUN (9-20) mg/dL Creatinine (0.66-1.25) mg/dL Glucose (74-99) mg/dL POC Glucose (mg/dL) 52 L 57 L 71 L (75-99) mg/dL Calcium (8.4-10.2) mg/dL Total Protein (6.3-8.2) g/dL Albumin (3.5-5.0) g/dL 01/16/21 01/16/21 01/16/21 Range/Units 06:48 06:48 06:58 WBC 18.6 H (3.8-10.6) k/uL RBC 3.81 L (4.30-5.90) m/uL Hgb 10.9 L (13.0-17.5) gm/dL Hct 33.8 L (39.0-53.0) % Neutrophils # 17.1 H (1.3-7.7) k/uL Lymphocytes # 0.7 L (1.0-4.8) k/uL Chloride 111 H (98-107) mmol/L Carbon Dioxide 21 L (22-30) mmol/L BUN 62 H (9-20) mg/dL Creatinine 2.77 H (0.66-1.25) mg/dL Glucose 179 H (74-99) mg/dL POC Glucose (mg/dL) 181 H (75-99) mg/dL Calcium 7.5 L (8.4-10.2) mg/dL Total Protein 5.2 L (6.3-8.2) g/dL Albumin 2.7 L (3.5-5.0) g/dL 01/16/21 01/16/21 Range/Units 11:55 17:10 WBC (3.8-10.6) k/uL RBC (4.30-5.90) m/uL Hgb (13.0-17.5) gm/dL Hct (39.0-53.0) % Neutrophils # (1.3-7.7) k/uL Lymphocytes # (1.0-4.8) k/uL Chloride (98-107) mmol/L Carbon Dioxide (22-30) mmol/L BUN (9-20) mg/dL Creatinine (0.66-1.25) mg/dL Glucose (74-99) mg/dL POC Glucose (mg/dL) 197 H 167 H (75-99) mg/dL Calcium (8.4-10.2) mg/dL Total Protein (6.3-8.2) g/dL Albumin (3.5-5.0) g/dL Microbiology - Last 24 Hours (Table) 01/15/21 14:13 Blood Culture - Preliminary Blood No Growth after 24 hours 01/15/21 14:13 Blood Culture - Preliminary Blood No Growth after 24 hours 01/15/21 14:13 Urine Culture - Preliminary Urine,Clean Catch Diabetes panel 01/16/21 Range/Units 06:48 Sodium 138 (137-145) mmol/L Potassium 4.6 (3.5-5.1) mmol/L Chloride 111 H (98-107) mmol/L Carbon Dioxide 21 L (22-30) mmol/L BUN 62 H (9-20) mg/dL Creatinine 2.77 H (0.66-1.25) mg/dL Glucose 179 H (74-99) mg/dL Calcium 7.5 L (8.4-10.2) mg/dL AST 19 (17-59) U/L ALT 13 (4-49) U/L Alkaline Phosphatase 63 (38-126) U/L Total Protein 5.2 L (6.3-8.2) g/dL Albumin 2.7 L (3.5-5.0) g/dL Calcium panel 01/16/21 Range/Units 06:48 Calcium 7.5 L (8.4-10.2) mg/dL Albumin 2.7 L (3.5-5.0) g/dL Pituitary panel 01/16/21 Range/Units 06:48 Sodium 138 (137-145) mmol/L Potassium 4.6 (3.5-5.1) mmol/L Chloride 111 H (98-107) mmol/L Carbon Dioxide 21 L (22-30) mmol/L BUN 62 H (9-20) mg/dL Creatinine 2.77 H (0.66-1.25) mg/dL Glucose 179 H (74-99) mg/dL Calcium 7.5 L (8.4-10.2) mg/dL Adrenal panel 06/02/21 Range/Units 06:48 Sodium 138 (137-145) mmol/L Potassium 4.6 (3.5-5.1) mmol/L Chloride 111 H (98-107) mmol/L Carbon Dioxide 21 L (22-30) mmol/L BUN 62 H (9-20) mg/dL Creatinine 2.77 H (0.66-1.25) mg/dL Glucose 179 H (74-99) mg/dL Calcium 7.5 L (8.4-10.2) mg/dL Total Bilirubin 0.2 (0.2-1.3) mg/dL AST 19 (17-59) U/L ALT 13 (4-49) U/L Alkaline Phosphatase 63 (38-126) U/L Total Protein 5.2 L (6.3-8.2) g/dL Albumin 2.7 L (3.5-5.0) g/dL Assessment and Plan Assessment: This is an 89-year-old Male with hx of Bladder cancer S/P cystectomy with ileal conduit. He is admitted to the hospital with sepsis secondary to UTI. He underwent a CT abdomen on presentation, which showed evidence of right-sided hydronephrosis, of note he had a CT scan back in February 2020 which showed evidence of right-sided hydronephrosis. On presentation creatinine 3.67, this creat improved to 2.77 with hydration. This am on evaluation denies any flank pain, he is having good urine output from his urostomy Plan: -Follow up on urine culture, continue IV antibiotics -We'll continue to trend creatinine,. He returns close to baseline no acute intervention for hydronephrosis. He will need a loopogram as an outpatient once his UTI resolves. To assess whether the hydronephrosis from reflux or obstruction
[2021-01-16 20:04] LABS: Glucose,Whole Blood 157 mg/dL (75-99)
[2021-01-16] MEDS: HEPARIN SODIUM,PORCINE/PF 5,000 UNIT/0.5 ML SYRINGE SQ SCH (20:40)
[2021-01-17] MEDS: SODIUM CHLORIDE 0.9% 1,000 ML IV SCH (01:39)
[2021-01-17 05:49] VITALS: BP 147/54; RESP 18; TEMP 98.5
[2021-01-17] MEDS: LEVOTHYROXINE 50 MCG TAB PO SCH (06:03)
[2021-01-17 07:17] LABS: Glucose,Whole Blood 64 mg/dL (75-99)
[2021-01-17] MEDS ORDERED: PANTOPRAZOLE 40 MG TABLET PO SCH (07:30)
[2021-01-17 07:41] LABS: Glucose,Whole Blood 108 mg/dL (75-99)
[2021-01-17] MEDS: IPRATROPIUM-ALBUTEROL 3 ML NEB INHALATION SCH ×2 (08:09→11:57)
[2021-01-17] MEDS: SYMBICORT 160-4.5 MCG INHALER INHALATION SCH (08:09)
[2021-01-17 08:11] LABS: HCT 34.7 % (39.0-53.0); HGB 10.3 gm/dL (13.0-17.5); Hypochromasia Slight; MCH 26.4 pg (25.0-35.0); MCHC 29.6 g/dL (31.0-37.0); MCV 89.2 fL (80.0-100.0); Mean Platelet Volume 6.9; Platelet Count 180 k/uL (150-450); RBC 3.89 m/uL (4.30-5.90); WBC 11.8 k/uL (3.8-10.6)
[2021-01-17 08:24] VITALS: PULSE 64
[2021-01-17] MEDS: INSULIN ASPART (NovoLOG) 100 UNIT/ML VIAL SQ SCH (08:26)
[2021-01-17] MEDS: HEPARIN SODIUM,PORCINE/PF 5,000 UNIT/0.5 ML SYRINGE SQ SCH (08:28)
[2021-01-17] MEDS: METOPROLOL TARTRATE 25 MG TAB PO SCH (08:29)
[2021-01-17] MEDS: ASPIRIN 81 MG PO SCH (08:29)
[2021-01-17] MEDS: LORATADINE 10 MG TAB PO SCH (08:29)
[2021-01-17] MEDS: ATORVASTATIN 40 MG TAB PO SCH (08:29)
[2021-01-17 08:59] LABS: African American GFR (CKD) 26 (>60 ml/min/1.73 sqM); Anion Gap 5 mmol/L; Blood Urea Nitrogen 43 mg/dL (9-20); Carbon Dioxide 24 mmol/L (22-30); Chloride 114 mmol/L (98-107); Glucose 53 mg/dL (74-99); Non-African American GFR(CKD) 23 (>60 ml/min/1.73 sqM); Sodium 143 mmol/L (137-145)
--- NOTE | 2021-01-17 10:31 | P.DS ---
Providers Date of admission: 01/15/21 18:41 Expected date of discharge: 01/17/21 Attending physician: Urbano Ring MD Consults: 01/15/21 18:52 Consult Physician Routine Consulting Provider: Magdiel Bennett Consult Reason/Comments: Urostomy, UTI Do you want consulting provider notified?: Already Contacted Primary care physician: Alok Ospina [facility] Course: HISTORY OF PRESENT ILLNESS This is an 89-year-old male one of Dr. Alok Ospina with a previous medical history significant for hypertension and hypertensive cardiovascular disease with left ventricular hypertrophy, CAD post PCI of the first obtuse marginal and LAD with 2 drug-eluting stent placement, carotid artery disease status post bilateral carotid endarterectomies, hyperlipidemia, bladder cancer status post radical cystectomy and ileal loop urinary diversion, hypothyroidism, COPD, rheumatoid arthritis, history of pancreatitis and history of C. difficile colitis, chronic kidney disease stage IIIB, diabetes mellitus type 2. Patient came into the emergency center due to purulent urine drainage from urostomy. He denies fever or chills. He states he has had frequent urinary tract infections. He came into [facility] emergency center for evaluation. He was found to be afebrile, heart rate 54, blood pressure initially 85/44, pulse ox 96% on room air. EKG is sinus bradycardia. WBC 28.3, hemoglobin 12.6, platelet count 245. Sodium 137, potassium 4.7, chloride 107, CO2 17, BUN 82 creatinine 3.67. Blood sugar 68. INR 1.2. Urinalysis turbid, blood large, leukoesterase large, RBCs greater than 182, wbc's greater than 182, WBC clumps many. Lactic acid 2.8. Liver function tests were normal. CAT scan of the abdomen and pelvis without contrast revealed right-sided hydronephrosis has progressed in the interval. Chest x-ray reveals no acute cardiopulmonary process. Patient is status post 2-1/2 L of IV fluid and started on ceftriaxone, admitted to the MedSurg floor and consult with urology. 01/17: Patient has been afebrile, heart rate 62, blood pressure 147/54, pulse ox 93% on room air. Previous blood pressure readings have been soft. He has been off losartan, Amaryl, Lasix and ciprofloxacin due to renal failure. We'll continue to hold these at discharge. His blood sugars have also been quite low down to 53 this morning. Urine culture is finalized with no growth. No antibiotics will be prescribed at discharge. Blood cultures no growth after [address] Bennett has cleared the patient for discharge and he plans for loopogram as an outpatient. Patient will be discharged home today in stable condition. ASSESSMENT AND PLAN 1. Sepsis secondary to acute urinary tract infection-ruled out. SIRS secondary to ARIA. 2. Acute lactic acidosis secondary to renal failure. 3. Acute kidney injury on top of chronic kidney disease stage IIIB secondary to right-sided hydronephrosis. 4. Hypoglycemia secondary to probable poor oral intake. 5. Diabetes mellitus type 2. 6. Hypertension, hypertensive cardiovascular disease. 7. CAD status post PCI of the first obtuse marginal and LAD with 2 drug-eluting stents. 8. Carotid artery disease status post endarterectomy, stable. 9. Hyperlipidemia. 10. Hypothyroidism. 11. History of bladder cancer in 2008 status post radical cystectomy, ileal loop urinary diversion. 12. COPD without exacerbation. 13. Rheumatoid arthritis, stable. DISCHARGE PLAN Home. Impression and plan of care have been directed as dictated by the signing physician. Melvina Solorzano nurse practitioner acting as scribe for signing physician. Patient Condition at Discharge: Good Plan - Discharge Summary Discharge Rx Participant: No New Discharge Prescriptions: New Metoprolol Tartrate [Lopressor] 25 mg PO DAILY tab Continue Ipratropium/Albuterol Sulfate [Combivent Respimat Inhaler] 1 puff INHALATION RT-QID Fluticasone/Salmeterol [Advair 500-50 Diskus] 1 puff INHALATION RT-BID Aspirin 81 mg PO DAILY Cetirizine HCl [Zyrtec] 10 mg PO DAILY Atorvastatin [Lipitor] 40 mg PO DAILY #30 tab Nitroglycerin Sl Tabs [Nitrostat] 0.4 mg SUBLINGUAL Q5M PRN #25 tab PRN Reason: Chest Pain Fluticasone Nasal [place] [Flonase Nasal Black] 1 - 2 spr EA NOSTRIL DAILY PRN PRN Reason: Allergy Symptoms Levothyroxine Sodium [Euthyrox] 50 mcg PO DAILY predniSONE See Taper PO DAILY Discontinued Losartan [Cozaar] 50 mg PO DAILY #30 tab Metoprolol Tartrate [Lopressor] 25 mg PO DAILY Ciprofloxacin HCl [Cipro] 500 mg PO Q12HR Glimepiride [Amaryl] 1 mg PO AC-BRKFST Furosemide [Lasix] 20 mg PO DAILY Discharge Medication List Aspirin 81 mg PO DAILY 02/21/18 [History] Cetirizine HCl [Zyrtec] 10 mg PO DAILY 02/21/18 [History] Fluticasone/Salmeterol [Advair 500-50 Diskus] 1 puff INHALATION RT-BID 02/21/18 [History] Ipratropium/Albuterol Sulfate [Combivent Respimat Inhaler] 1 puff INHALATION RT- QID 02/21/18 [History] Atorvastatin [Lipitor] 40 mg PO DAILY #30 tab 02/23/18 [Rx] Nitroglycerin Sl Tabs [Nitrostat] 0.4 mg SUBLINGUAL Q5M PRN #25 tab 02/23/18 [Rx] Fluticasone Nasal Black [Flonase Nasal Black] 1 - 2 spr EA NOSTRIL DAILY PRN 01/15/21 [History] Levothyroxine Sodium [Euthyrox] 50 mcg PO DAILY 01/15/21 [History] predniSONE See Taper PO DAILY 01/15/21 [History] Metoprolol Tartrate [Lopressor] 25 mg PO DAILY tab 01/17/21 [Rx] Follow up Appointment(s)/Referral(s): Magdiel Bennett MD [STAFF PHYSICIAN] - 1 Week (office will call patient back after speaking with .no appt.available until february) Alok Ospina MD [Primary Care Provider] - 01/24/21 1:15 pm Patient Instructions/Handouts: Urinary Tract Infection in Men (DC), Hydronephrosis (DC) Discharge Disposition: HOME SELF-CARE
--- NOTE | 2021-01-17 16:58 | P.PN ---
Subjective Progress Note Date: 01/17/21 No acute overnight events, white count is down to 11.8. Urine cultures negative. Indicates that his flank pain has resolved Objective - Vital Signs Vital signs: Vital Signs Temp 98.5 F 01/17/21 05:10 Pulse 64 01/17/21 08:23 Resp 18 01/17/21 05:10 BP 147/54 01/17/21 05:10 Pulse Ox 93 L 01/17/21 05:10 Intake & Output 01/16/21 01/17/21 01/17/21 18:59 06:59 18:59 Intake Total 1380 Output Total 3500 1025 Balance -3500 355 Intake: Intake, IV Titration 900 Amount Sodium Chloride 0.9% 1, 900 000 ml @ 75 mls/hr IV . [id number] [facility] Rx#:[id number] Oral 480 Output: Urine 3500 1025 Other: Voiding Method Ileal Conduit (Right) Ileal Conduit (Right) - Constitutional General appearance: Present: no acute distress - Gastrointestinal General gastrointestinal: Present: soft. Absent: distended, tenderness - Psychiatric Psychiatric: Present: A&O x's 3 - Labs CBC & Chem 7: 01/17/21 06:50 01/17/21 06:50 Labs: Abnormal Lab Results - Last 24 Hours (Table) 01/16/21 01/16/21 01/17/21 Range/Units 17:10 20:02 06:50 WBC 11.8 H (3.8-10.6) k/uL RBC 3.89 L (4.30-5.90) m/uL Hgb 10.3 L (13.0-17.5) gm/dL Hct 34.7 L (39.0-53.0) % MCHC 29.6 L (31.0-37.0) g/dL Chloride (98-107) mmol/L BUN (9-20) mg/dL Creatinine (0.66-1.25) mg/dL Glucose (74-99) mg/dL POC Glucose (mg/dL) 167 H 157 H (75-99) mg/dL Calcium (8.4-10.2) mg/dL 01/17/21 01/17/21 01/17/21 Range/Units 06:50 07:16 07:39 WBC (3.8-10.6) k/uL RBC (4.30-5.90) m/uL Hgb (13.0-17.5) gm/dL Hct (39.0-53.0) % MCHC (31.0-37.0) g/dL Chloride 114 H (98-107) mmol/L BUN 43 H (9-20) mg/dL Creatinine 2.45 H (0.66-1.25) mg/dL Glucose 53 L (74-99) mg/dL POC Glucose (mg/dL) 64 L 108 H (75-99) mg/dL Calcium 8.0 L (8.4-10.2) mg/dL Microbiology - Last 24 Hours (Table) 01/15/21 14:13 Blood Culture - Preliminary Blood No Growth after 48 hours 01/15/21 14:13 Blood Culture - Preliminary Blood No Growth after 48 hours 01/15/21 14:13 Urine Culture - Final Urine,Clean Catch Assessment and Plan Assessment: This is an 89-year-old Male with hx of Bladder cancer S/P cystectomy with ileal conduit. He is admitted to the hospital with sepsis. He underwent a CT abdomen on presentation, which showed evidence of right-sided hydronephrosis, of note he had a CT scan back in February 2020 which showed evidence of right-sided hydronephrosis. On presentation creatinine 3.67, this creat improved to 2.45 with hydration, baseline is 2 . His urine culture is negative, Plan: - no acute intervention for hydronephrosis. He will need a loopogram as an outpatient To assess whether the hydronephrosis from reflux or obstruction -Okay for discharge from urology standpoint, can follow-up as an outpatient in 1-2 weeks
== END 2021-01-17 11:45 | disposition home or self-care (01) | DRG 872 ==
LOC: EC 12:04 → 5NMEDONC 18:41
PROVIDERS: ADMIT Internal Medicine; ATTEND Internal Medicine
DX: A41.9 Sepsis, unspecified organism (principal); N13.6 Pyonephrosis; N17.9 Acute kidney failure, unspecified; E87.2 Acidosis; I25.2 Old myocardial infarction; J44.9 Chronic obstructive pulmonary disease, unspecified; N18.32 Chronic kidney disease, stage 3b; E03.9 Hypothyroidism, unspecified; E11.22 Type 2 diabetes mellitus with diabetic chronic kidney disease; E11.649 Type 2 diabetes mellitus with hypoglycemia without coma; I13.10 Hypertensive heart and chronic kidney disease without heart failure, with stage 1 through stage 4 chronic kidney disease, or unspecified chronic kidney disease; I25.10 Atherosclerotic heart disease of native coronary artery without angina pectoris; E86.0 Dehydration; E78.5 Hyperlipidemia, unspecified; M06.9 Rheumatoid arthritis, unspecified; Z79.82 Long term (current) use of aspirin; Z79.84 Long term (current) use of oral hypoglycemic drugs; Z79.890 Hormone replacement therapy; Z79.899 Other long term (current) drug therapy; M19.90 Unspecified osteoarthritis, unspecified site; I95.9 Hypotension, unspecified; M54.5 Low back pain; Z86.19 Personal history of other infectious and parasitic diseases; Z98.61 Coronary angioplasty status; Z87.891 Personal history of nicotine dependence; Z85.51 Personal history of malignant neoplasm of bladder; Z90.6 Acquired absence of other parts of urinary tract; I51.7 Cardiomegaly
CPT/HCPCS: 36415; 71046; 74176; 80048; 80053; 81001; 83605; 85025; 85027; 85610; 85730; 87040; 87086; 87635; 93005; 94640; 96361; 96365; 99285

== ENCOUNTER 2021-11-05 11:36 | Inpatient (IN) | payer MEDICARE, BC ==
[2021-11-05] MEDS ORDERED: diphenhydrAMINE 50 MG/ML 1 ML VIAL IVP STA (12:25)
[2021-11-05] MEDS ORDERED: ONDANSETRON 4 MG/2 ML VIAL IVP STA (12:25)
[2021-11-05] MEDS ORDERED: SODIUM CHLORIDE 0.9% 1,000 ML IV STA ×2 (12:25→14:18)
[2021-11-05] MEDS ORDERED: FAMOTIDINE 20 MG/2 ML VIAL IV STA (12:26)
[2021-11-05] MEDS ORDERED: IPRATROPIUM-ALBUTEROL 3 ML NEB INHALATION STA (12:32)
[2021-11-05] MEDS ORDERED: methylPREDNISolone SOD SUCCI 125 MG/2 ML VIAL IV STA (12:32)
[2021-11-05 12:58] LABS: Basophils % (A) 0 %; Eosinophils # (A) 0.2 k/uL (0-0.7); Eosinophils % (A) 2 %; HCT 40.5 % (39.0-53.0); HGB 12.3 gm/dL (13.0-17.5); Hypochromasia Marked; Lymphocytes # (A) 0.4 k/uL (1.0-4.8); Lymphocytes % (A) 4 %; MCH 28.1 pg (25.0-35.0); MCHC 30.5 g/dL (31.0-37.0); MCV 92.2 fL (80.0-100.0); Mean Platelet Volume 7.5; Monocytes # (A) 0.4 k/uL (0-1.0); Monocytes % (A) 3 %; Neutrophils # (A) 9.5 k/uL (1.3-7.7); Neutrophils % (A) 90 %; Platelet Count 251 k/uL (150-450); RBC 4.39 m/uL (4.30-5.90); RDW 14.4 % (11.5-15.5); WBC 10.5 k/uL (3.8-10.6)
[2021-11-05 13:12] LABS: Albumin 3.1 g/dL (3.5-5.0); Calcium 8.1 mg/dL (8.4-10.2); Potassium 4.4 mmol/L (3.5-5.1); Total Bilirubin 0.6 mg/dL (0.2-1.3); Total Protein 6.1 g/dL (6.3-8.2)
[2021-11-05 13:16] LABS: INR 1.1 (<1.2); Prothrombin Time 11.3 sec (9.0-12.0)
[2021-11-05 13:21] LABS: Partial Thromboplastin Time 21.3 sec (22.0-30.0)
--- NOTE | 2021-11-05 13:25 | XR ---
EXAMINATION TYPE: XR chest 2V DATE OF EXAM: 11/05/2021 COMPARISON: Chest x-ray January 15, 2021 HISTORY: Chest pain. TECHNIQUE: Frontal and lateral views of the chest are obtained. FINDINGS: The osseous structures are demineralized. Persistent cardiomegaly. Chronic parenchymal jhonathan nges without new focal airspace opacity, pleural effusion, or pneumothorax seen bilaterally. IMPRESSION: Chronic emphysematous change and cardiomegaly without acute pulmonary process.
--- NOTE | 2021-11-05 13:26 | XR ---
EXAMINATION TYPE: XR KUB DATE OF EXAM: 11/05/2021 COMPARISON: NONE HISTORY: Diarrhea TECHNIQUE: One view abdominal series FINDINGS: The osseous structures are intact. The bowel gas pattern is nonspecific. Lung bases are clear. Hype rtrophic and degenerative changes spine. Arthropathy hips. Postsurgical change in the pelvis. IMPRESSION: 1. Nonspecific abdomen.
[2021-11-05 13:42] LABS: Appearance,Urine Turbid (Clear); Bacteria,Urine Moderate /hpf; Bilirubin,Urine Negative (Negative); Blood,Urine Moderate (Negative); Color,Urine Light Red; Glucose,Urine (UA) Negative (Negative); Ketones,Urine Negative (Negative); Leukocyte Esterase,Urine Large (Negative); Mucus,Urine Occasional /hpf; Nitrite,Urine Negative (Negative); PH, Urine 6.5 (5.0-8.0); Protein,Urine 2+ (Negative); RBC,Urine 82 /hpf (0-5); Specific Gravity,Urine 1.017 (1.001-1.035); Squamous Epithelial Cell,Urine 1 /hpf (0-4); WBC,Urine >182 /hpf (0-5)
[2021-11-05] MEDS ORDERED: NALOXONE 0.4 MG/ML 1 ML VIAL IV PRN (14:24)
[2021-11-05] MEDS ORDERED: ONDANSETRON 4 MG/2 ML VIAL IVP PRN (14:24)
[2021-11-05] MEDS ORDERED: ACETAMINOPHEN TAB 325 MG TAB PO PRN (14:24)
--- NOTE | 2021-11-05 14:26 | ED ---
General Adult HPI - General Chief complaint: Nausea/Vomiting/Diarrhea Stated complaint: Nausea, vomiting Time Seen by Provider: 11/05/21 12:20 Source: patient, EMS, RN notes reviewed, old records reviewed Mode of arrival: EMS Limitations: no limitations - History of Present Illness Initial comments: Patient is an 89-year-old male with past medical history remarkable for cancer, COPD, hypertension, prior MIs, thyroid disorder who presents emergency Dep artment complaining of weakness, nausea, vomiting, diarrhea. All the yesterday patient was having episodes of nausea, vomiting, diarrhea which resolved today. States he feels dry and weak since then. Denies any abdominal pain. Denies any chest pain or shortness of breath. States he is having good output from his urostomy bag. Has a history of recurrent UTIs. Has been tolerating oral intake today but states it is less of an appetite. Has no other acute complaints at this time. Denies any fevers, sick contacts. No one else at home has similar symptoms. - Related Data Home Medications Medication Instructions Recorded Confirmed Cetirizine HCl [Zyrtec] 10 mg PO DAILY 02/21/18 11/05/21 Fluticasone/Salmeterol [Advair 1 puff INHALATION RT-BID 02/21/18 11/05/21 500-50 Diskus] Ipratropium/Albuterol Sulfate 1 puff INHALATION RT-TID 02/21/18 11/05/21 [Combivent Respimat Inhaler] Fluticasone Nasal [place] [Flonase 1 - 2 spr EA NOSTRIL DAILY PRN 01/15/21 11/05/21 Nasal [place]] Levothyroxine Sodium [Euthyrox] 50 mcg PO AC-BRKFST 01/15/21 11/05/21 Acetaminophen Tab [Tylenol Tab] 1,000 mg PO DAILY 11/05/21 11/05/21 Aspirin EC [Ecotrin Low Dose] 81 mg PO DAILY 11/05/21 11/05/21 Cranberry Fruit Extract [Cranberry] 500 mg PO DAILY 11/05/21 11/05/21 Cyanocobalamin (Vitamin B-12) 1,000 mcg PO DAILY 11/05/21 11/05/21 [Vitamin B-12] Glimepiride [Amaryl] 1 mg PO DAILY 11/05/21 11/05/21 Losartan [Cozaar] 50 mg PO DAILY 11/05/21 11/05/21 predniSONE 5 mg PO DAILY 11/05/21 11/05/21 Previous Rx's Medication Instructions Recorded Atorvastatin [Lipitor] 40 mg PO DAILY #30 tab 02/23/18 Metoprolol Tartrate [Lopressor] 25 mg PO DAILY tab 01/17/21 Allergies Allergy/AdvReac Type Severity Reaction Status Date / Time No Known Allergies Allergy Verified 11/05/21 14:29 Review of Systems ROS Statement: Those systems with pertinent positive or pertinent negative responses have been documented in the HPI. Review of Systems: CONST: Denies fever EYES: Denies blurry vision ENT: Denies nasal congestion C/V: Denies Chest pain RESP: Denies shortness of breath GI: Denies abdominal pain : Denies dysuria SKIN: Denies rash. MSK: Denies joint pain. NEURO: Denies headache ROS Other: All systems not noted in ROS Statement are negative. Past Medical History Past Medical History: Coronary Artery Disease (CAD), Cancer, COPD, Hype rlipidemia, Hypertension, Myocardial Infarction (CO), Osteoarthritis (OA), Thyroid Disorder Additional Past Medical History / Comment(s): Bladder cancer post urostomy, CAD post PCI of LAD and OM1, hypertension and hypertensive cardiovascular disease, hyperlipidemia, osteoarthritis, history of pancreatitis, history of carotid artery disease status post bilateral carotid endarterectomies, history of C. diff colitis. Last Myocardial Infarction Date:: 02-21-18 History of Any Multi-Drug Resistant Organisms: C-DIFF Date of last positivie culture/infection: c-diff 2007 MDRO Source:: stool Past Surgical History: Appendectomy, Heart Catheterization With Stent, Hernia Repair Additional Past Surgical History / Comment(s): bladder removal, urostomy, carotid endarterectomy bilaterally, cateract surgery, left heart catheterization with PCI of the first obtuse marginal and LAD, incisional hernia surgery. Past Anesthesia/Blood Transfusion Reactions: No Reported Reaction Additional Past Anesthesia/Blood Transfusion Reaction / Comment(s): Pt has received blood in past without reaction. Date of Last Stent Placement:: Past Psychological History: No Psychological Hx Reported Smoking Status: Former smoker Past Alcohol Use History: Occasional Past Drug Use History: None Reported - Past Family History Father Family Medical History: Cancer Additional Family Medical History / Comment(s): Father at age 65 from Bone cancer. Mother Family Medical History: CVA/TIA, Diabetes Mellitus Additional Family Medical History / Comment(s): Mother at age 67 from diabetes and CVA. Brother(s) Family Medical History: Coronary Artery Disease (CAD) Additional Family Medical History / Comment(s): Patient had one brother at age 86 from heart disease. Sister(s) Family Medical History: No Reported History Additional Family Medical History / Comment(s): Patient has one sister that is alive and well. Daughter(s) Family Medical History: No Reported History Additional Family Medical History / Comment(s): Patient has one daughter with no major medical problems. Son(s) Family Medical History: No Reported History Additional Family Medical History / Comment(s): Patient has one son with no major medical problems. General Exam - General Exam Comments Initial Comments: General: Appears in no acute distress. HEAD: Normal with no signs of head trauma. EYES: PERRLA, EOMI, conjunctiva normal, no discharge. ENT: Hearing grossly intact, normal oropharynx. Dry mucous membranes. RESPIRATORY: Hypoxic on room air, typically not on oxygen at home. No increased work of breathing. Diffuse end expiratory wheezing. C/V: Regular rate and rhythm. S1 and S2 auscultated, no edema, peripheral pulses 2+ and intact throughout ABD: Abd is soft, nontender, nondistended. Urostomy bag is actively draining. EXT: Normal range of motion, no obvious deformity SKIN: No rashes or lesions observed on exposed skin. NEURO: Alert and oriented x 4. Cranial nerves II-XII intact. No focal sensory or strength deficits. NIH is 0. GCS is 15. Limitations: no limitations Course Vital Signs 11/05/21 11/05/21 11/05/21 11:41 11:48 13:16 Temperature 98.6 F Pulse Rate 93 95 105 H Respiratory 18 18 24 Rate Blood Pressure 95/71 120/90 O2 Sat by Pulse 86 L 97 Oximetry 11/05/21 11/05/21 11/05/21 13:26 15:03 17:26 Temperature Pulse Rate 104 H 78 93 Respiratory 20 18 18 Rate Blood Pressure 108/53 O2 Sat by Pulse 97 Oximetry 11/05/21 11/05/21 11/05/21 17:34 17:35 18:19 Temperature 99.2 F Pulse Rate 96 96 98 Respiratory 18 18 18 Rate Blood Pressure 134/63 O2 Sat by Pulse 99 96 Oximetry Medical Decision Making - Medical Decision Making Based on the patient's presentation and physical exam, I'm concerned for was likely a gastro-enteritis viral illness. However his symptoms seemed to have resolved. However we will obtain infectious labs as he does appear dehydrated. We'll also obtain urinalysis. Screening EKG will be obtained as well. He will be given of fluid bolus in addition to the fluid bolus received by EMS. He'll be symptomatically treated as well. Patient was in agreement this plan. He appears to also be having a COPD exacerbation, as he does have diffuse wheezing. He will be given a breathing treatment as well as started on IV steroids. Patient was in agreement this plan. EKG showed no signs of acute ischemia. Laboratory studies are remarkable for an elevated BUN/creatinine the setting of CK D. Initial lactic acid is elevated to 2.5, repeat is pending. This is likely secondary to his nausea, vomiting, diarrhea causing dehydration. His no leukocytosis. Urinalysis reveals a urinary tract infection. Covid is negative. vital Signs remained within normal limits at this time in stable. On reevaluation, patient feels improved. He is on nasal cannula oxygen and is in no acute respiratory distress. He still wheezing bilaterally. I would like to admitted to the hospital for further management. Patient was in agreement this plan. Patient will be continued on every 4 hours breathing treatments as well as every six-hour IV steroids. He'll be started on IV Rocephin in addition to maintenance IV fluids. Patient was in agreement this plan. I spoke with the admitting team, sounds physician group Dr. Talbert who is covering for Dr. Montero's group who the patient's PCP admits to. He accepted the patient. Patient was admitted in stable condition. - Lab Data Result diagrams: 11/05/21 12:41 11/05/21 12:41 Lab Results 11/05/21 11/05/21 11/05/21 Range/Units 12:41 12:41 12:41 WBC 10.5 (3.8-10.6) k/uL RBC 4.39 (4.30-5.90) m/uL Hgb 12.3 L (13.0-17.5) gm/dL Hct 40.5 (39.0-53.0) % MCV 92.2 (80.0-100.0) fL MCH 28.1 (25.0-35.0) pg MCHC 30.5 L (31.0-37.0) g/dL RDW 14.4 (11.5-15.5) % Plt Count 251 (150-450) k/uL MPV 7.5 Neutrophils % 90 % Lymphocytes % 4 % Monocytes % 3 % Eosinophils % 2 % Basophils % 0 % Neutrophils # 9.5 H (1.3-7.7) k/uL Lymphocytes # 0.4 L (1.0-4.8) k/uL Monocytes # 0.4 (0-1.0) k/uL Eosinophils # 0.2 (0-0.7) k/uL Basophils # 0.0 (0-0.2) k/uL Hypochromasia Marked PT 11.3 (9.0-12.0) sec INR 1.1 (<1.2) APTT 21.3 L (22.0-30.0) sec Sodium 140 (137-145) mmol/L Potassium 4.4 (3.5-5.1) mmol/L Chloride 110 H (98-107) mmol/L Carbon Dioxide 22 (22-30) mmol/L Anion Gap 8 mmol/L BUN 45 H (9-20) mg/dL Creatinine 2.41 H (0.66-1.25) mg/dL Est GFR (CKD-EPI)AfAm 27 (>60 ml/min/1.73 sqM) Est GFR (CKD-EPI)NonAf 23 (>60 ml/min/1.73 sqM) Glucose 93 (74-99) mg/dL Lactic Ac Sepsis Rflx Plasma Lactic Acid Robbie (0.7-2.0) mmol/L Calcium 8.1 L (8.4-10.2) mg/dL Total Bilirubin 0.6 (0.2-1.3) mg/dL AST 23 (17-59) U/L ALT 13 (4-49) U/L Alkaline Phosphatase 55 (38-126) U/L Total Protein 6.1 L (6.3-8.2) g/dL Albumin 3.1 L (3.5-5.0) g/dL Amylase 79 (30-110) U/L Lipase 174 (23-300) U/L Urine Color Urine Appearance (Clear) Urine pH (5.0-8.0) Ur Specific [place] (1.001-1.035) Urine Protein (Negative) Urine Glucose (UA) (Negative) Urine Ketones (Negative) Urine Blood (Negative) Urine Nitrite (Negative) Urine Bilirubin (Negative) Urine Urobilinogen (<2.0) mg/dL Ur Leukocyte Esterase (Negative) Urine RBC (0-5) /hpf Urine WBC (0-5) /hpf Urine WBC Clumps (None) /hpf Ur Squamous Epith Cells (0-4) /hpf Urine Bacteria (None) /hpf Urine Mucus (None) /hpf Coronavirus (PCR) (Not Detectd) 11/05/21 11/05/21 11/05/21 Range/Units 12:41 12:41 13:13 WBC (3.8-10.6) k/uL RBC (4.30-5.90) m/uL Hgb (13.0-17.5) gm/dL Hct (39.0-53.0) % MCV (80.0-100.0) fL MCH (25.0-35.0) pg MCHC (31.0-37.0) g/dL RDW (11.5-15.5) % Plt Count (150-450) k/uL MPV Neutrophils % % Lymphocytes % % Monocytes % % Eosinophils % % Basophils % % Neutrophils # (1.3-7.7) k/uL Lymphocytes # (1.0-4.8) k/uL Monocytes # (0-1.0) k/uL Eosinophils # (0-0.7) k/uL Basophils # (0-0.2) k/uL Hypochromasia PT (9.0-12.0) sec INR (<1.2) APTT (22.0-30.0) sec Sodium (137-145) mmol/L Potassium (3.5-5.1) mmol/L Chloride (98-107) mmol/L Carbon Dioxide (22-30) mmol/L Anion Gap mmol/L BUN (9-20) mg/dL Creatinine (0.66-1.25) mg/dL Est GFR (CKD-EPI)AfAm (>60 ml/min/1.73 sqM) Est GFR (CKD-EPI)NonAf (>60 ml/min/1.73 sqM) Glucose (74-99) mg/dL Lactic Ac Sepsis Rflx Y Plasma Lactic Acid Robbie 2.5 H* (0.7-2.0) mmol/L Calcium (8.4-10.2) mg/dL Total Bilirubin (0.2-1.3) mg/dL AST (17-59) U/L ALT (4-49) U/L Alkaline Phosphatase (38-126) U/L Total Protein (6.3-8.2) g/dL Albumin (3.5-5.0) g/dL Amylase (30-110) U/L Lipase (23-300) U/L Urine Color Urine Appearance (Clear) Urine pH (5.0-8.0) Ur Specific [place] (1.001-1.035) Urine Protein (Negative) Urine Glucose (UA) (Negative) Urine Ketones (Negative) Urine Blood (Negative) Urine Nitrite (Negative) Urine Bilirubin (Negative) Urine Urobilinogen (<2.0) mg/dL Ur Leukocyte Esterase (Negative) Urine RBC (0-5) /hpf Urine WBC (0-5) /hpf Urine WBC Clumps (None) /hpf Ur Squamous Epith Cells (0-4) /hpf Urine Bacteria (None) /hpf Urine Mucus (None) /hpf Coronavirus (PCR) Not Detected (Not Detectd) 11/05/21 Range/Units 13:22 WBC (3.8-10.6) k/uL RBC (4.30-5.90) m/uL Hgb (13.0-17.5) gm/dL Hct (39.0-53.0) % MCV (80.0-100.0) fL MCH (25.0-35.0) pg MCHC (31.0-37.0) g/dL RDW (11.5-15.5) % Plt Count (150-450) k/uL MPV Neutrophils % % Lymphocytes % % Monocytes % % Eosinophils % % Basophils % % Neutrophils # (1.3-7.7) k/uL Lymphocytes # (1.0-4.8) k/uL Monocytes # (0-1.0) k/uL Eosinophils # (0-0.7) k/uL Basophils # (0-0.2) k/uL Hypochromasia PT (9.0-12.0) sec INR (<1.2) APTT (22.0-30.0) sec Sodium (137-145) mmol/L Potassium (3.5-5.1) mmol/L Chloride (98-107) mmol/L Carbon Dioxide (22-30) mmol/L Anion Gap mmol/L BUN (9-20) mg/dL Creatinine (0.66-1.25) mg/dL Est GFR (CKD-EPI)AfAm (>60 ml/min/1.73 sqM) Est GFR (CKD-EPI)NonAf (>60 ml/min/1.73 sqM) Glucose (74-99) mg/dL Lactic Ac Sepsis Rflx Plasma Lactic Acid Robbie (0.7-2.0) mmol/L Calcium (8.4-10.2) mg/dL Total Bilirubin (0.2-1.3) mg/dL AST (17-59) U/L ALT (4-49) U/L Alkaline Phosphatase (38-126) U/L Total Protein (6.3-8.2) g/dL Albumin (3.5-5.0) g/dL Amylase (30-110) U/L Lipase (23-300) U/L Urine Color Light Red Urine Appearance Turbid (Clear) Urine pH 6.5 (5.0-8.0) Ur Specific [place] 1.017 (1.001-1.035) Urine Protein 2+ H (Negative) Urine Glucose (UA) Negative (Negative) Urine Ketones Negative (Negative) Urine Blood Moderate H (Negative) Urine Nitrite Negative (Negative) Urine Bilirubin Negative (Negative) Urine Urobilinogen 4.0 (<2.0) mg/dL Ur Leukocyte Esterase Large H (Negative) Urine RBC 82 H (0-5) /hpf Urine WBC >182 H (0-5) /hpf Urine WBC Clumps Many H (None) /hpf Ur Squamous Epith Cells 1 (0-4) /hpf Urine Bacteria Moderate H (None) /hpf Urine Mucus Occasional H (None) /hpf Coronavirus (PCR) (Not Detectd) - EKG Data -: EKG Interpreted by Me EKG Comments: 12-lead Electrocardiogram Interpretation Note EKG was reviewed and interpreted by myself. 12-lead ECG performed at 1315 is in terpreted by me as revealing sinus tachycardia at a rate of 104 beats per minute. Left axis deviation. SC interval is 180 ms, QRS durations 105 ms, QTc is 358 ms.. There were no ST or T wave abnormalities to suggest myocardial ischemia or injury. R wave progression across the precordium was satisfactory. By my interpretation this EKG is non-diagnostic for acute ischemia. Disposition Clinical Impression: Dehydration, CKD (chronic kidney disease), Lactic acidosis, Diarrhea, UTI (urinary tract infection), COPD exacerbation Disposition: ADMITTED IP TO THIS HOSP Condition: Stable
[2021-11-05] MEDS ORDERED: FLUTICASONE 50MCG/SPRAY NASAL 16GM EA NOSTRIL PRN (15:43)
--- NOTE | 2021-11-05 15:54 | P.HPIM ---
History of Present Illness H&P Date: 11/05/21 Chief Complaint: weakness Patient is a 89-year-old male who is a patient of with past medical history of hypertension, coronary disease status post PCI, carotid artery disease status post bilateral carotid endarterectomies, hyperlipidemia, bladder cancer status post radical cystostomy and ileal loop urinary diversion, hypothyroidism, COPD, rheumatoid arthritis, history of pancreatitis and history of C. diff colitis, chronic kidney disease stage IIIB, diabetes mellitus type 2 who presents to the ED with generalized weakness. Patient states that last night he was having nausea vomiting and diarrhea. He says that the symptoms have subsided however he was feeling too weak so came into the ED. When patient arrived to the ED he was mildly hypoxic and had wheezing on exam. He was given breathing treatments and steroids. Patient states that his breathing is better. Patient currently satting 97% on 2 L nasal cannula. Patient's UA showed grea ter than 182 WBCs large leukocyte esterase moderate bacteria. Patient started on IV Rocephin for UTI. Lactic acid is 2.5. Creatinine is 2.41 which is his baseline. COVID-19 PCR was negative. Chest x-ray and abdominal x-ray were unremarkable. Review of Systems 10 ROS reviewed and are negative except as noted in HPI Past Medical History Past Medical History: Coronary Artery Disease (CAD), Cancer, COPD, Hyperlipidemia, Hypertension, Myocardial Infarction (OH), Osteoarthritis (OA), Thyroid Disorder Additional Past Medical History / Comment(s): Bladder cancer post urostomy, CAD post PCI of LAD and OM1, hypertension and hypertensive cardiovascular disease, h yperlipidemia, osteoarthritis, history of pancreatitis, history of carotid artery disease status post bilateral carotid endarterectomies, history of C. diff colitis. Last Myocardial Infarction Date:: 02-21-18 History of Any Multi-Drug Resistant Organisms: C-DIFF Date of last positivie culture/infection: c-diff 2007 MDRO Source:: stool Past Surgical History: Appendectomy, Heart Catheterization With Stent, Hernia Repair Additional Past Surgical History / Comment(s): bladder removal, urostomy, carotid endarterectomy bilaterally, cateract surgery, left heart catheterization with PCI of the first obtuse marginal and LAD, incisional hernia surgery. Past Anesthesia/Blood Transfusion Reactions: No Reported Reaction Additional Past Anesthesia/Blood Transfusion Reaction / Comment(s): Pt has received blood in past without reaction. Date of Last Stent Placement:: Past Psychological History: No Psychological Hx Reported Smoking Status: Former smoker Past Alcohol Use History: Occasional Past Drug Use History: None Reported - Past Family History Father Family Medical History: Cancer Additional Family Medical History / Comment(s): Father at age 65 from Bone cancer. Mother Family Medical History: CVA/TIA, Diabetes Mellitus Additional Family Medical History / Comment(s): Mother at age 67 from diabetes and CVA. Brother(s) Family Medical History: Coronary Artery Disease (CAD) Additional Family Medical History / Comment(s): Patient had one brother at age 86 from heart disease. Sister(s) Family Medical History: No Reported History Additional Family Medical History / Comment(s): Patient has one sister that is alive and well. Daughter(s) Family Medical History: No Reported History Additional Family Medical History / Comment(s): Patient has one daughter with no major medical problems. Son(s) Family Medical History: No Reported History Additional Family Medical History / Comment(s): Patient has one son with no major medical problems. Medications and Allergies Home Medications Medication Instructions Recorded Confirmed Type Cetirizine HCl [Zyrtec] 10 mg PO DAILY 02/21/18 11/05/21 History Fluticasone/Salmeterol [Advair 1 puff INHALATION RT-BID 02/21/18 11/05/21 History 500-50 Diskus] Ipratropium/Albuterol Sulfate 1 puff INHALATION RT-TID 02/21/18 11/05/21 History [Combivent Respimat Inhaler] Atorvastatin [Lipitor] 40 mg PO DAILY #30 tab 02/23/18 11/05/21 Rx Fluticasone Nasal Kyle [Flonase 1 - 2 spr EA NOSTRIL DAILY PRN 01/15/21 11/05/21 History Nasal Kyle] Levothyroxine Sodium [Euthyrox] 50 mcg PO AC-BRKFST 01/15/21 11/05/21 History Metoprolol Tartrate [Lopressor] 25 mg PO DAILY tab 01/17/21 11/05/21 Rx Acetaminophen Tab [Tylenol Tab] 1,000 mg PO DAILY 11/05/21 11/05/21 History Aspirin EC [Ecotrin Low Dose] 81 mg PO DAILY 11/05/21 11/05/21 History Cranberry Fruit Extract [Cranberry] 500 mg PO DAILY 11/05/21 11/05/21 History Cyanocobalamin (Vitamin B-12) 1,000 mcg PO DAILY 11/05/21 11/05/21 History [Vitamin B-12] Glimepiride [Amaryl] 1 mg PO DAILY 11/05/21 11/05/21 History Losartan [Cozaar] 50 mg PO DAILY 11/05/21 11/05/21 History predniSONE 5 mg PO DAILY 11/05/21 11/05/21 History Allergies Allergy/AdvReac Type Severity Reaction Status Date / Time No Known Allergies Allergy Verified 11/05/21 14:29 Physical Exam Osteopathic Statement: *. No significant issues noted on an osteopathic s tructural exam other than those noted in the History and Physical/Consult. Vitals: Vital Signs Temp Pulse Resp BP Pulse Ox 11/05/21 15:03 78 18 108/53 97 11/05/21 13:26 104 H 20 11/05/21 13:16 105 H 24 11/05/21 11:48 95 18 120/90 97 11/05/21 11:41 98.6 F 93 18 95/71 86 L Intake and Output 11/05/21 11/05/21 11/05/21 06:59 14:59 22:59 Other: Weight 72.575 kg General: [Alert and oriented, well nourished, no acute distress, patient appears chronically debilitated]. Eye: [PERRL, EOMI, normal conjunctiva]. HENT: [Normocephalic, clear tympanic membranes, normal hearing, dry oral mucosa, no scleral icterus, no sinus tenderness]. Neck: [Supple, non-tender, no carotid bruits, no JVD, no lymphadenopathy]. Lungs: [Diminished breath sounds bilaterally]. Heart: [Normal rate, regular rhythm, no murmur, gallop or edema]. Abdomen: [Soft, non-tender, non-distended, normal bowel sounds, no masses, + urostomy]. Musculoskeletal: [Normal range of motion and strength, no tenderness or swelling]. Skin: [Skin is warm, dry and pink, no rashes or lesions]. Neurologic: [Awake, alert, and oriented X3, CN II-XII intact]. Psychiatric: [Cooperative, appropriate mood and affect]. Results CBC & Chem 7: 11/05/21 12:41 11/05/21 12:41 Labs: Abnormal Lab Results - Last 24 Hours (Table) 11/05/21 11/05/21 11/05/21 Range/Units 12:41 12:41 12:41 Hgb 12.3 L (13.0-17.5) gm/dL MCHC 30.5 L (31.0-37.0) g/dL Neutrophils # 9.5 H (1.3-7.7) k/uL Lymphocytes # 0.4 L (1.0-4.8) k/uL APTT 21.3 L (22.0-30.0) sec Chloride 110 H (98-107) mmol/L BUN 45 H (9-20) mg/dL Creatinine 2.41 H (0.66-1.25) mg/dL Plasma Lactic Acid Robbie (0.7-2.0) mmol/L Calcium 8.1 L (8.4-10.2) mg/dL Total Protein 6.1 L (6.3-8.2) g/dL Albumin 3.1 L (3.5-5.0) g/dL Urine Protein (Negative) Urine Blood (Negative) Ur Leukocyte Esterase (Negative) Urine RBC (0-5) /hpf Urine WBC (0-5) /hpf Urine WBC Clumps (None) /hpf Urine Bacteria (None) /hpf Urine Mucus (None) /hpf 11/05/21 11/05/21 Range/Units 12:41 13:22 Hgb (13.0-17.5) gm/dL MCHC (31.0-37.0) g/dL Neutrophils # (1.3-7.7) k/uL Lymphocytes # (1.0-4.8) k/uL APTT (22.0-30.0) sec Chloride (98-107) mmol/L BUN (9-20) mg/dL Creatinine (0.66-1.25) mg/dL Plasma Lactic Acid Robbie 2.5 H* (0.7-2.0) mmol/L Calcium (8.4-10.2) mg/dL Total Protein (6.3-8.2) g/dL Albumin (3.5-5.0) g/dL Urine Protein 2+ H (Negative) Urine Blood Moderate H (Negative) Ur Leukocyte Esterase Large H (Negative) Urine RBC 82 H (0-5) /hpf Urine WBC >182 H (0-5) /hpf Urine WBC Clumps Many H (None) /hpf Urine Bacteria Moderate H (None) /hpf Urine Mucus Occasional H (None) /hpf Assessment and Plan Assessment: Generalized weakness likely due to viral gastroenteritis -PT OT consult Acute COPD exacerbation -IV steroids and breathing treatments Viral gastroenteritis Dehydration -Patient's symptoms have resolved -IV fluids -Symptomatic care Possible UTI versus colonization Rule out sepsis Bladder cancer status post radical cystostomy and ileal loop urinary diversion -Patient meets SIRS criteria with tachycardia and tachypnea -Resume IV Rocephin -Follow up urine culture -Follow blood cultures -Lactic acid is less than 4 and patient normotensive so no need for fluid bolus -Trend lactic acid until resolved CKD stage IIIB -Patient's creatinine at baseline -Stable Coronary artery disease status post PCI -Resume statin and aspirin Diabetes mellitus type 2 -Hold glimepiride -Start sliding scale insulin Hypertension -Resume home meds CODE STATUS:full code DVT prophylaxis: Subcu heparin Discussed with: Patient, ER, rn Anticipated length of stay > than [address]: home versus senior living facility A total of 75 minutes was spent on the care of this complex patient more than 50% of the time was spent in counseling and care coordination.
[2021-11-05] MEDS: IPRATROPIUM-ALBUTEROL 3 ML NEB INHALATION SCH ×3 (17:25→22:43)
[2021-11-05 17:47] LABS: Glucose,Whole Blood 101 mg/dL (75-99)
[2021-11-05] MEDS: INSULIN ASPART (NovoLOG) 100 UNIT/ML VIAL SQ SCH ×2 (18:15→22:45)
[2021-11-05] MEDS: methylPREDNISolone SOD SUCCI 40 MG/ML 1 ML VIAL IV SCH ×2 (18:18→22:46)
[2021-11-05 22:30] LABS: Glucose,Whole Blood 214 mg/dL (75-99)
[2021-11-05] MEDS: HEPARIN SODIUM,PORCINE/PF 5,000 UNIT/0.5 ML SYRINGE SQ SCH (22:45)
[2021-11-06] MEDS: IPRATROPIUM-ALBUTEROL 3 ML NEB INHALATION SCH ×3 (03:43→11:58)
[2021-11-06] MEDS: methylPREDNISolone SOD SUCCI 40 MG/ML 1 ML VIAL IV SCH ×2 (06:16→11:21)
[2021-11-06 06:44] LABS: Glucose,Whole Blood 241 mg/dL (75-99)
[2021-11-06] MEDS ORDERED: LEVOTHYROXINE 50 MCG TAB PO SCH (07:30)
[2021-11-06 07:44] VITALS: BP 118/60; TEMP 98.1
[2021-11-06] MEDS: HEPARIN SODIUM,PORCINE/PF 5,000 UNIT/0.5 ML SYRINGE SQ SCH (07:57)
[2021-11-06] MEDS: INSULIN ASPART (NovoLOG) 100 UNIT/ML VIAL SQ SCH ×2 (07:57→11:20)
[2021-11-06] MEDS ORDERED: CYANOCOBALAMIN 500 MCG TAB PO SCH (09:00)
[2021-11-06] MEDS ORDERED: METOPROLOL TARTRATE 25 MG TAB PO SCH (09:00)
[2021-11-06] MEDS ORDERED: LORATADINE 10 MG TAB PO SCH (09:00)
[2021-11-06] MEDS ORDERED: LOSARTAN 50 MG TAB PO SCH (09:00)
[2021-11-06] MEDS ORDERED: ASPIRIN 81 MG PO SCH (09:00)
[2021-11-06] MEDS ORDERED: ATORVASTATIN 40 MG TAB PO SCH (09:00)
[2021-11-06 09:31] LABS: HCT 35.9 % (39.6-50.0); HGB 10.4 g/dL (13.0-17.0); MCH 27.2 pg (27.0-32.0); MCV 93.7 fL (80.0-97.0); Mean Platelet Volume 9.7 fL (9.5-12.2); NRBC Per 100 WBC 0 /100 WBCS (0.0-0.0); Platelet Count 195 X 10*3/uL (140-440); RBC 3.83 X 10*6/uL (4.40-5.60); RDW 14.6 % (11.5-14.5); WBC 12.34 X 10*3/uL (4.50-10.00)
[2021-11-06 09:44] LABS: African American GFR (CKD) 24.1 (60.0-200.0); Albumin/Globulin Ratio 1.22 (1.60-3.17); Anion Gap 12.3 mmol/L (10.00-18.00); BUN/Creat Ratio 18.35 Ratio (12.00-20.00); Blood Urea Nitrogen 47.9 mg/dL (9.0-27.0); Calcium 7.9 mg/dL (8.7-10.3); Carbon Dioxide 19.3 mmol/L (20.0-27.5); Globulin 2.5 g/dL (1.6-3.3); Non-African American GFR(CKD) 20.8 (60.0-200.0); Potassium 5.6 mmol/L (3.5-5.5); Total Bilirubin 0.2 mg/dL (0.30-1.20); Total Protein 5.5 g/dL (6.2-8.2)
[2021-11-06 11:15] LABS: Glucose,Whole Blood 233 mg/dL (75-99)
[2021-11-06 11:34] LABS: Basophils # (A) 0.02 X 10*3/uL (0.00-0.10); Basophils % (A) 0.2 %; Eosinophils # (A) 0 X 10*3/uL (0.04-0.35); Eosinophils % (A) 0 %; Immature Grans, Automated 0.3 %; Lymphocytes # (A) 0.25 X 10*3/uL (0.90-5.00); Monocytes # (A) 0.17 X 10*3/uL (0.20-1.00); Monocytes % (A) 1.4 %; Neutrophils # (A) 11.86 X 10*3/uL (1.80-7.70); Neutrophils % (A) 96.1 %; RBC Morphology NORMAL
[2021-11-06 12:08] VITALS: PULSE 65; RESP 16
--- NOTE | 2021-11-06 13:10 | P.DS ---
Providers Date of admission: 11/05/21 14:24 Expected date of discharge: 11/06/21 Attending physician: Nikhil Montero Primary care physician: Alok Ospina [facility] Course: Discharge Diagnosis: Generalized weakness likely due to viral gastroenteritis Acute COPD exacerbation Vital gastroenteritis Dehydration Possible UTI versus colonization Bladder cancer status post radical cystostomy and ileal loop urinary diversion CK D stage III B Coronary disease status post PCI Diabetes mellitus type 2 Hypertension Hospital Course: Patient is a 89-year-old male who is a patient of with past medical history of hypertension, coronary disease status post PCI, carotid artery disease status post bilateral carotid endarterectomies, hyperlipidemia, bladder cancer status post radical cystostomy and ileal loop urinary diversion, hypothyroidism, COPD, rheumatoid arthritis, history of pancreatitis and history of C. diff colitis, chronic kidney disease stage IIIB, diabetes mellitus type 2 who presents to the ED with generalized weakness. Patient states that last night he was having nausea vomiting and diarrhea. He says that the symptoms have subsided however he was feeling too weak so came into the ED. When patient arrived to the ED he was mildly hypoxic and had wheezing on exam. So patient was admitted for COPD exacerbation as well as for generalized weakness. Patient was started on COPD pathway. Patient's urinalysis also positive for UTI so he was empirically started on antibiotics as this could also be contributing to his symptoms. The following day patient reported feeling much better and wanted to go home. Patient worked with physical therapy who deemed him stable to go home. Patient will be discharged on prednisone 40 mg for 4 more days. His urine culture is pending however since improved on IV Rocephin he'll be discharged on Ceftin to complete 5 more days of antibiotics. Patient seen and examined at bedside.[] Vital signs reviewed and stable. General: [non toxic], [no distress], [appears at stated age] appears chronically debilitated Derm: [warm], [dry] Head: [atraumatic], [normocephalic], [symmetric] Eyes: [EOMI], [no lid lag], [anicteric sclera] Mouth: [no lip lesion], [mucus membranes moist] Cardiovascular: [S1S2 reg], [no murmur], [positive posterior tibial pulse bilateral], Lungs: [CTA bilateral], [no rhonchi, no rales] , [no accessory muscle use] Abdominal: [soft], [ nontender to palpation], [no guarding], [no appreciable organomegaly] Ext: [no gross muscle atrophy], [no edema], [no contractures] Neuro: [ CN II-XI grossly intact], [no focal neuro deficits] Psych: [Alert], [oriented], [appropriate affect] A total of [32] minutes of time were spent preparing this complex discharge summary . Patient Condition at Discharge: Stable Plan - Discharge Summary Discharge Rx Participant: Yes New Discharge Prescriptions: New Cefuroxime [Ceftin] 250 mg PO BID 4 Days #8 tab Continue Ipratropium/Albuterol Sulfate [Combivent Respimat Inhaler] 1 puff INHALATION RT-TID Fluticasone/Salmeterol [Advair 500-50 Diskus] 1 puff INHALATION RT-BID Cetirizine HCl [Zyrtec] 10 mg PO DAILY Atorvastatin [Lipitor] 40 mg PO DAILY #30 tab Cranberry Fruit Extract [Cranberry] 500 mg PO DAILY Losartan [Cozaar] 50 mg PO DAILY Fluticasone Nasal Gaastra [Flonase Nasal Gaastra] 1 - 2 spr EA NOSTRIL DAILY PRN PRN Reason: Allergy Symptoms Levothyroxine Sodium [Euthyrox] 50 mcg PO AC-BRKFST Metoprolol Tartrate [Lopressor] 25 mg PO DAILY tab Aspirin EC [Ecotrin Low Dose] 81 mg PO DAILY Acetaminophen Tab [Tylenol] 1,000 mg PO DAILY predniSONE 5 mg PO DAILY Glimepiride [Amaryl] 1 mg PO DAILY Cyanocobalamin (Vitamin B-12) [Vitamin B-12] 1,000 mcg PO DAILY Discharge Medication List Cetirizine HCl [Zyrtec] 10 mg PO DAILY 02/21/18 [History] Fluticasone/Salmeterol [Advair 500-50 Diskus] 1 puff INHALATION RT-BID 02/21/18 [History] Ipratropium/Albuterol Sulfate [Combivent Respimat Inhaler] 1 puff INHALATION RT- TID 02/21/18 [History] Atorvastatin [Lipitor] 40 mg PO DAILY #30 tab 02/23/18 [Rx] Fluticasone Nasal Gaastra [Flonase Nasal Gaastra] 1 - 2 spr EA NOSTRIL DAILY PRN 01/15/21 [History] Levothyroxine Sodium [Euthyrox] 50 mcg PO AC-BRKFST 01/15/21 [History] Metoprolol Tartrate [Lopressor] 25 mg PO DAILY tab 01/17/21 [Rx] Acetaminophen Tab [Tylenol] 1,000 mg PO DAILY 11/05/21 [History] Aspirin EC [Ecotrin Low Dose] 81 mg PO DAILY 11/05/21 [History] Cranberry Fruit Extract [Cranberry] 500 mg PO DAILY 11/05/21 [History] Cyanocobalamin (Vitamin B-12) [Vitamin B-12] 1,000 mcg PO DAILY 11/05/21 [History] Glimepiride [Amaryl] 1 mg PO DAILY 11/05/21 [History] Losartan [Cozaar] 50 mg PO DAILY 11/05/21 [History] predniSONE 5 mg PO DAILY 11/05/21 [History] Cefuroxime [Ceftin] 250 mg PO BID 4 Days #8 tab 11/06/21 [Rx] Follow up Appointment(s)/Referral(s): Alok Ospina MD [Primary Care Provider] - 1-2 days Discharge Disposition: HOME SELF-CARE
--- NOTE | 2021-11-06 14:38 | CDI ---
.6Documentation Clarification Form Date: 11/06/2021 02:19:20 PM From: Elyse Pierson RN CCDS Admit Date: 11/05/2021 02:24:00 PM Patient Name: Dhaval Vigil Visit Number: [id number] Discharge Date: ATTENTION: The Clinical Documentation Specialists (CDI) and [facility] Coding Staff appreciate your assistance in clarifying documentation. Please respond to the clarification below the line at the bottom and electronically sign. The CDI & [facility] Coding staff will review the response and follow-up if needed. Please note: Queries are made part of the Legal Health Record. If you have any questions, please contact the author of this message via ITS. Dr. Nanci Talbert Your patient had SpO2 86% room air, 11/05, Vital signs [facility]. Based on this information and the findings below, is there an additional diagnosis that is clinically appropriate for this patient? History/Risk Factors: 89-year-old male presents to the ED with weakness, nausea, vomiting and diarrhea. Found to hypoxic in ED. Medical History: CAD, COPD and HTN. 11/05, H&P. Home oxygen: No Clinical Indicators: Vital signs: 11/05 B/P 95/71; HR 93; Temp 98.6 F Oral; RR 18; SpO2 85% room air Lung/Breathing assessment: 11/05 ED Note: Respiratory: Hypoxic on room air, typically not on oxygen at home. Diffuse end expiratory wheezing. 11/05 4L nasal canula SpO2 97% 11/05 2L nasal canula SpO2 96% 11/06 room air SpO2 93% Treatment: 11/05 Solumedrol 125mg IV x 1; 11/05 to current 40mg IV Q6HR. Breathing tx: 11/05 Duoneb 0.5mg 3mg/3ml Inhalation x1; 11/05 current Duoneb 0.5mg -3mg / 3ml Inhalation Q4H JULIETH. Oxygen: 11/05 4L nasal cannula; 11/06 2L nasal cannula. Is there an additional diagnosis that is clinically appropriate for this patient? [ ] Acute Hypoxic Respiratory Failure (pO2 <60 mm Hg or SpO2 <91% on room air) [ ] Acute Respiratory Distress [ X ] Acute Respiratory Insufficiency [ ] Other Diagnosis, please specify [ ] Unable to determine (Template Last Revised: October 2020) MTDD
== END 2021-11-06 14:18 | disposition home or self-care (01) | DRG 191 ==
LOC: EC 11:36 → 4SSUR 14:24
PROVIDERS: ADMIT Internal Medicine Geriatric Medicine; ATTEND Internal Medicine Geriatric Medicine
DX: J44.1 Chronic obstructive pulmonary disease with (acute) exacerbation (principal); E87.2 Acidosis; N39.0 Urinary tract infection, site not specified; Z20.822 Contact with and (suspected) exposure to COVID-19; A08.4 Viral intestinal infection, unspecified; E03.9 Hypothyroidism, unspecified; I25.10 Atherosclerotic heart disease of native coronary artery without angina pectoris; N18.32 Chronic kidney disease, stage 3b; I12.9 Hypertensive chronic kidney disease with stage 1 through stage 4 chronic kidney disease, or unspecified chronic kidney disease; E11.22 Type 2 diabetes mellitus with diabetic chronic kidney disease; E78.5 Hyperlipidemia, unspecified; R00.0 Tachycardia, unspecified; R06.89 Other abnormalities of breathing; E86.0 Dehydration; I25.2 Old myocardial infarction; M06.9 Rheumatoid arthritis, unspecified; Z79.82 Long term (current) use of aspirin; Z79.84 Long term (current) use of oral hypoglycemic drugs; Z79.890 Hormone replacement therapy; Z79.899 Other long term (current) drug therapy; Z82.3 Family history of stroke; Z82.49 Family history of ischemic heart disease and other diseases of the circulatory system; Z83.3 Family history of diabetes mellitus; Z85.51 Personal history of malignant neoplasm of bladder; Z87.19 Personal history of other diseases of the digestive system; Z86.19 Personal history of other infectious and parasitic diseases; Z87.440 Personal history of urinary (tract) infections; Z87.891 Personal history of nicotine dependence; Z93.6 Other artificial openings of urinary tract status; Z98.61 Coronary angioplasty status
CPT/HCPCS: 36415; 71046; 74018; 80053; 81001; 82150; 83605; 83690; 85025; 85610; 85730; 87040; 87077; 87086; 87186; 87635; 93005; 94640; 94760; 96361; 96374; 96375; 99285